=== PATIENT | female | born 1940 | race Caucasian/White ===

== ENCOUNTER 2018-10-19 20:24 | Emergency (ER) | payer MEDICARE, OTHER ==
[2018-10-19] MEDS ORDERED: Ondansetron 4 MG/2 ML SDV IVPUSH ONE (20:36)
--- NOTE | 2018-10-19 20:41 | EDM.PDOC ---
ED HPI GENERAL MEDICAL PROBLEM - General Chief Complaint: Gastrointestinal Problem Stated Complaint: NAUSEA/VOMITING Time Seen by Provider: 10/19/18 20:31 Source of Information: Reports: Patient History Limitations: Reports: No Limitations - History of Present Illness INITIAL COMMENTS - FREE TEXT/NARRATIVE: 78 y/o female presents to ER with cc nausea and vomiting. She reports her symptoms started today around noon. She started with nausea, chills, no fever and vomited later in the evening. She has a history of DM, cholecystectomy, she reports her sugars have been running 100-106 today. She is accompanied by her family member. She has not taken anything for her symptoms because she "can't keep anything down." Onset: Today Onset Date: 10/19/18 Onset Time: 12:00 Duration: Getting Worse Location: Reports: Abdomen Quality: Reports: Ache Severity: Mild Improves with: Reports: None Worsens with: Reports: None Associated Symptoms: Reports: Fever/Chills, Nausea/Vomiting. Denies: Chest Pain , Shortness of Breath, Weakness Middle Abdomen Pain Score (Numeric/FACES): 6 - Related Data Allergies Allergy/AdvReac Type Severity Reaction Status Date / Time latex Allergy Anaphylactic Verified 10/19/18 20:31 Shock fresh ink Allergy Anaphylactic Uncoded 10/19/18 20:31 Shock oil based products Allergy Anaphylactic Uncoded 10/19/18 20:31 Shock Home Meds: Home Meds Insulin Glarg,Human.Rec.Analog [Lantus Solostar] 50 units SQ BEDTIME 11/07/14 [ History] Lisinopril/Hydrochlorothiazide [Lisinopril-Hctz 20-25 mg Tab] 1 each PO DAILY [History] Propranolol [Inderal] 40 mg PO BID 11/07/14 [History] Sertraline HCl 50 mg PO DAILY 11/07/14 [History] atorvaSTATin [Lipitor] 20 mg PO BEDTIME 11/07/14 [History] rOPINIRole [Requip] 1.5 mg PO BEDTIME 11/07/14 [History] Linagliptin [Tradjenta] 1 tab PO DAILY 11/11/15 [History] Meloxicam 7.5 mg PO DAILY 10/19/18 [History] Ondansetron [Zofran ODT] 4 mg PO Q6H PRN #20 tab.dis 10/19/18 [Rx] Past Medical History HEENT History: Reports: Other (See Below) Other HEENT History: actinic otitis externa R ear, impacted cerumen, has upper denture Cardiovascular History: Reports: High Cholesterol, Hypertension Genitourinary History: Reports: Urinary Incontinence, Other (See Below) Other Genitourinary History: CKD III Neurological History: Reports: Neuropathy, Peripheral Psychiatric History: Reports: Depression Endocrine/Metabolic History: Reports: Diabetes, Type II Other Endocrine/Metabolic History: nephropathy Dermatologic History: Reports: Psoriasis, Other (See Below) Other Dermatologic History: dermatitis, tinea pedis - Past Surgical History HEENT Surgical History: Reports: Cataract Surgery GI Surgical History: Reports: Cholecystectomy Female Surgical History: Reports: Section Social & Family History - Tobacco Use Smoking Status *Q: Former Smoker Used Tobacco, but Quit: Yes Month/Year Tobacco Last Used: 8 years - Caffeine Use Caffeine Use: Reports: None - Recreational Drug Use Recreational Drug Use: No - Living Situation & Occupation Living situation: Reports: , with Spouse Occupation: Employed ED ROS GENERAL - Review of Systems Review Of Systems: See Below Constitutional: Reports: Chills. Denies: Fever HEENT: Reports: Glasses Respiratory: Denies: Shortness of Breath Cardiovascular: Denies: Chest Pain Endocrine: Reports: Other (history of type 2 diabetes) GI/Abdominal: Reports: Abdominal Pain, Nausea, Vomiting. Denies: Constipation, Diarrhea : Reports: No Symptoms Musculoskeletal: Reports: No Symptoms Skin: Reports: No Symptoms Neurological: Reports: No Symptoms Psychiatric: Reports: No Symptoms Hematologic/Lymphatic: Reports: No Symptoms Immunologic: Reports: No Symptoms ED EXAM, GI/ABD - Physical Exam Exam: See Below Exam Limited By: No Limitations General Appearance: Alert, WD/WN, No Apparent Distress Ears: Normal External Exam, Normal Canal, Hearing Grossly Normal, Normal TMs Nose: Normal Inspection, Normal Mucosa, No Blood Throat/Mouth: Normal Inspection, Normal Lips, Normal Teeth, Normal Gums, Normal Oropharynx, Normal Voice, No Airway Compromise Head: Atraumatic, Normocephalic Neck: Normal Inspection, Supple, Non-Tender, Full Range of Motion Respiratory/Chest: No Respiratory Distress, Lungs Clear, Normal Breath Sounds, No Accessory Muscle Use, Chest Non-Tender Cardiovascular: Normal Peripheral Pulses, Regular Rate, Rhythm, No Edema, No Gallop, No JVD, No Murmur, No Rub GI/Abdominal Exam: Normal Bowel Sounds, Soft, No Organomegaly, No Distention, No Abnormal Bruit, No Mass, Pelvis Stable, Tender. No: Guarding, Rigid, Rebound , Mass Back Exam: Normal Inspection, Full Range of Motion Extremities: Normal Inspection, Normal Range of Motion, Non-Tender, No Pedal Edema, Normal Capillary Refill Neurological: Alert, Oriented, Normal Cognition, Normal Gait Psychiatric: Normal Affect, Normal Mood Skin Exam: Warm, Dry, Intact, Normal Color, No Rash Lymphatic: No Adenopathy Course - Vital Signs Last Recorded V/S: Last Vital Signs Temp 98.1 F 10/19/18 20:29 Pulse 78 10/19/18 20:29 Resp 16 10/19/18 20:29 BP 174/131 H 10/19/18 21:03 Pulse Ox 90 L 10/19/18 20:29 - Orders/Labs/Meds Orders: Active Orders 24 hr Category Date Time Status Lisinopril [Prinivil] Med 10/19/18 21:00 Active 20 mg PO DAILY Sodium Chloride 0.9% [Normal Saline] 1,000 ml Med 10/19/18 20:45 Active IV ASDIRECTED Medication Orders Sodium Chloride (Normal Saline) 1,000 mls @ 999 mls/hr IV ASDIRECTED JACI Last Admin: 10/19/18 20:42 Dose: 999 mls/hr Lisinopril (Prinivil) 20 mg PO DAILY [facility] Last Admin: 10/19/18 21:03 Dose: 20 mg Labs: Laboratory Tests 10/19/18 10/19/18 10/19/18 Range/Units 20:40 20:40 21:14 WBC 7.41 (3.98-10.04) K/mm3 RBC 4.11 (3.98-5.22) M/mm3 Hgb 12.4 (11.2-15.7) gm/L Hct 38.7 (34.1-44.9) % MCV 94.2 (79.4-94.8) fl MCH 30.2 (25.6-32.2) pg MCHC 32.0 L (32.2-35.5) g/dl RDW Std Deviation 45.1 (36.4-46.3) fL Plt Count 260 (182-369) K/mm3 MPV 9.4 (9.4-12.3) fl Neut % (Auto) 85.3 H (34.0-71.1) % Lymph % (Auto) 8.4 L (19.3-51.7) % Posey % (Auto) 4.6 L (4.7-12.5) % Eos % (Auto) 1.5 (0.7-5.8) Baso % (Auto) 0.1 (0.1-1.2) % Neut # (Auto) 6.32 H (1.56-6.13) K/mm3 Lymph # (Auto) 0.62 L (1.18-3.74) K/mm3 Posey # (Auto) 0.34 (0.24-0.36) K/mm3 Eos # (Auto) 0.11 (0.04-0.36) K/mm3 Baso # (Auto) 0.01 (0.01-0.08) K/mm3 Manual Slide Review Abnormal smear Sodium 142 (136-145) mEq/L Potassium 4.2 (3.5-5.1) mEq/L Chloride 106 (98-107) mEq/L Carbon Dioxide 30 (21-32) mEq/L Anion Gap 10.2 (5-15) BUN 26 H (7-18) mg/dL Creatinine 1.4 H (0.55-1.02) mg/dL Est Cr Clr Drug Dosing 27.04 mL/min Estimated GFR (MDRD) 37 (>60) mL/min BUN/Creatinine Ratio 18.6 H (14-18) Glucose 182 H (83-115) mg/dL Calcium 9.4 (8.5-10.1) mg/dL Total Bilirubin 0.5 (0.2-1.0) mg/dL AST 18 (15-37) U/L ALT 28 (14-59) U/L Alkaline Phosphatase 106 (46-116) U/L Total Protein 7.9 (6.4-8.2) g/dl Albumin 3.8 (3.4-5.0) g/dl Globulin 4.1 gm/dL Albumin/Globulin Ratio 0.9 L (1-2) Urine Color Yellow (Yellow) Urine Appearance Clear (Clear) Urine pH 6.0 (5.0-8.0) Ur Specific Oneco > or = 1.030 (1.005-1.030) Urine Protein 2+ H (Negative) Urine Glucose (UA) Negative (Negative) Urine Ketones Negative (Negative) Urine Occult Blood Negative (Negative) Urine Nitrite Negative (Negative) Urine Bilirubin Negative (Negative) Urine Urobilinogen 0.2 (0.2-1.0) Ur Leukocyte Esterase Negative (Negative) Urine RBC 0-5 (0-5) /hpf Urine WBC 0-5 (0-5) /hpf Ur Squamous Epith Cells 5-10 H (0-5) /hpf Urine Bacteria Few H (FEW) /hpf Urine Mucus Moderate H (FEW) /hpf Meds: Medications Generic Name Dose Route Start Last Admin Trade Name Freq PRN Reason Stop Dose Admin Sodium Chloride 1,000 mls @ 999 mls/hr 10/19/18 20:45 10/19/18 20:42 Normal Saline IV 999 mls/hr ASDIRECTED JACI Administration Lisinopril 20 mg 10/19/18 21:00 10/19/18 21:03 Prinivil PO 20 mg DAILY JACI Administration Discontinued Medications Generic Name Dose Route Start Last Admin Trade Name Freq PRN Reason Stop Dose Admin Hydrochlorothiazide 25 mg 10/19/18 20:51 10/19/18 21:03 Hydrochlorothiazide PO 10/19/18 20:52 25 mg ONETIME ONE Administration Ondansetron HCl 4 mg 10/19/18 20:36 10/19/18 20:43 Zofran IVPUSH 10/19/18 20:37 4 mg ONETIME ONE Administration Promethazine HCl 25 mg 10/19/18 20:58 10/19/18 21:03 Phenergan IM 10/19/18 20:59 25 mg ONETIME ONE Administration - Re-Assessments/Exams Free Text/Narrative Re-Assessment/Exam: 10/19/18 21:12 WBC 7.41 rbc 4.11 H & H 12.4/38.7. 10/19/18 21:54 Na + 142 K + 4.2 chl 106 co2 30 glucose 182 bun 26 creatine 1.4 urinalysis normal except protein + 2. She states she feels better after receiving IVF, Phenergan, lisinopril, HCTZ and Zofran. I feel her illness is due to a virus. Her B/P came down to 156/65 and her oxygen level was 93% at time of discharge. I will discharge home with instructions to follow a bland diet and advance as tolerated. I will discharge home with Zofran for nausea. I instructed her to follow up with her PCP. Instructed to return to the ER for any new or acute worsening symptoms. She verbalized understanding and her condition improved. Departure - Departure Time of Disposition: 21:58 Disposition: Home, Self-Care 01 Condition: Good Clinical Impression: Gastroenteritis, Vomiting - Discharge Information Prescriptions: Ondansetron [Zofran ODT] 4 mg PO Q6H PRN #20 tab.dis PRN Reason: Nausea Instructions: Nausea and Vomiting, Adult, Viral Gastroenteritis, Adult, Easy-to -Read Referrals: Carolina Rodriguez, SENSITIZER [Primary Care Provider] - Forms: ED Department Discharge Additional Instructions: You have been diagnosis with gastroenteritis. I recommend you eat a bland diet and advance as tolerated. You have been giving a prescription for Zofran for nausea. Follow up with your PCP. Return to the ER for any new or acute worsening symptoms. - My Orders Last 24 Hours: My Active Orders 10/19/18 20:45 Sodium Chloride 0.9% [Normal Saline] 1,000 ml IV ASDIRECTED 10/19/18 21:00 Lisinopril [Prinivil] 20 mg PO DAILY - Assessment/Plan Last 24 Hours: My Active Orders 10/19/18 20:45 Sodium Chloride 0.9% [Normal Saline] 1,000 ml IV ASDIRECTED 10/19/18 21:00 Lisinopril [Prinivil] 20 mg PO DAILY
[2018-10-19] MEDS ORDERED: Sodium Chloride 0.9% 1,000 ML IV SCH (20:45)
[2018-10-19] MEDS ORDERED: Hydrochlorothiazide 25 MG Tab PO ONE (20:51)
[2018-10-19] MEDS ORDERED: Promethazine 25 MG/ML SDV IM ONE (20:58)
[2018-10-19] MEDS ORDERED: Lisinopril 20 MG Tab PO SCH (21:00)
[2018-10-19 21:03] VITALS: BP 174/131
== END 2018-10-19 22:10 | disposition home or self-care (01) ==
LOC: JD.ED 20:24
DX: K52.9 Noninfective gastroenteritis and colitis, unspecified (principal); I12.9 Hypertensive chronic kidney disease with stage 1 through stage 4 chronic kidney disease, or unspecified chronic kidney disease; N18.3 Chronic kidney disease, stage 3 (moderate); E11.22 Type 2 diabetes mellitus with diabetic chronic kidney disease; Z98.49 Cataract extraction status, unspecified eye; Z90.49 Acquired absence of other specified parts of digestive tract; E11.40 Type 2 diabetes mellitus with diabetic neuropathy, unspecified; E11.21 Type 2 diabetes mellitus with diabetic nephropathy; Z88.8 Allergy status to other drugs, medicaments and biological substances; Z91.040 Latex allergy status; Z87.891 Personal history of nicotine dependence
CPT/HCPCS: 36415; 80053; 81001; 85025; 96361; 96372; 96374; 99284; A9270; J2405; J2550; J7040

== ENCOUNTER 2018-12-09 16:38 | Inpatient (IN) | payer MEDICARE, OTHER ==
--- NOTE | 2018-12-09 17:03 | EDM.PDOC ---
ED HPI GENERAL MEDICAL PROBLEM - General Chief Complaint: Abdominal Pain Stated Complaint: VOMITING AND BLOOD IN STOOL Time Seen by Provider: 12/09/18 16:55 Source of Information: Reports: Patient History Limitations: Reports: No Limitations - History of Present Illness INITIAL COMMENTS - FREE TEXT/NARRATIVE: 78-year-old female presents to the ED with acute onset of illness starting at noon today. She states this morning she felt well. She ate dinner about 11:30 and within the hour started to have nausea and then began vomiting. She lost her dinner. She estimated she's vomited 4 or 5 times the last 2 emesis is have just been bilious without blood. Within the hour she started having lower abdominal cramping pain and diarrhea stools. She estimates that she's gone 6 or 7 times. The last 2 were bloody and mucus. She usually has no problems with hemorrhoids or bleeding per rectum. She did diffuse lower abdominal cramping pain intermittently. She is an insulin-dependent diabetic type II. Not sure what her blood sugar is at this time. She just finished her course of Bactrim double strength which she has used for 3 days for urinary tract infection. She was having dysuria urgency and frequency and this improved within a day of taking antibiotics and has continued to be better. No associated fever but some chills. She also took fluconazole her Diflucan 1 tablet because they told her she had a yeast infection. 3 days ago. Onset: Today, Sudden Onset Date: 12/09/18 Onset Time: 12:00 Duration: Hour(s): Location: Reports: Abdomen (Started with nausea and vomiting and then developed diarrhea shortly thereafter.) Quality: Reports: Ache, Sharp, Stabbing, Other (Constant pain in the epigastrium with intermittent lower abdominal cramping pain) Severity: Moderate Improves with: Reports: None Worsens with: Reports: None Context: Denies: Activity, Exercise, Lifting, Sick Contact, Trauma, Other Associated Symptoms: Reports: Diaphoresis, Malaise, Nausea/Vomiting (4 times since noon), Weakness, Other (Diarrhea 6 or 7 times with the last 2 being bloody and mucousy.). 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.) Lower Abdominal Pain Score (Numeric/FACES): 7 - Related Data Allergies Allergy/AdvReac Type Severity Reaction Status Date / Time latex Allergy Anaphylactic Verified 12/09/18 16:46 Shock fresh ink Allergy Anaphylactic Uncoded 10/19/18 20:31 Shock oil based products Allergy Anaphylactic Uncoded 10/19/18 20:31 Shock Home Meds: Home Meds Lisinopril/Hydrochlorothiazide [Lisinopril-Hctz 20-25 mg Tab] 1 each PO DAILY [History] Propranolol [Inderal] 40 mg PO BID 11/07/14 [History] Sertraline HCl 50 mg PO DAILY 11/07/14 [History] atorvaSTATin [Lipitor] 20 mg PO BEDTIME 11/07/14 [History] rOPINIRole [Requip] 1.5 mg PO BEDTIME 11/07/14 [History] Linagliptin [Tradjenta] 1 tab PO DAILY 11/11/15 [History] Ondansetron [Zofran ODT] 4 mg PO Q6H PRN #20 tab.dis 10/19/18 [Rx] Fluconazole 150 mg PO DAILY 12/09/18 [History] Insulin Glarg,Human.Rec.Analog [Lantus] 50 unit SUBCUT DAILY 12/09/18 [History] Sulfamethoxazole/Trimethoprim [Bactrim Ds Tablet] 1 each PO BID 12/09/18 [ History] Past Medical History HEENT History: Reports: Other (See Below) Other HEENT History: actinic otitis externa R ear, impacted cerumen, has upper denture Cardiovascular History: Reports: High Cholesterol, Hypertension Genitourinary History: Reports: Urinary Incontinence, Other (See Below) Other Genitourinary History: CKD III Neurological History: Reports: Neuropathy, Peripheral Psychiatric History: Reports: Depression Endocrine/Metabolic History: Reports: Diabetes, Type II Other Endocrine/Metabolic History: nephropathy Dermatologic History: Reports: Psoriasis, Other (See Below) Other Dermatologic History: dermatitis, tinea pedis - Past Surgical History HEENT Surgical History: Reports: Cataract Surgery GI Surgical History: Reports: Cholecystectomy (Done open.) Female Surgical History: Reports: Section (Classical scar 1.) Social & Family History - Tobacco Use Smoking Status *Q: Never Smoker - Caffeine Use Caffeine Use: Reports: None - Recreational Drug Use Recreational Drug Use: No - Living Situation & Occupation Living situation: Reports: , with Spouse Occupation: Employed ED ROS GENERAL - Review of Systems Review Of Systems: See Below Constitutional: Reports: Chills, Malaise, Weakness, Fatigue, Decreased Appetite. Denies: Fever, Weight Loss HEENT: Reports: Glasses, Other (Has had previous cataract extractions) Respiratory: Reports: No Symptoms. Denies: Shortness of Breath, Wheezing, Pleuritic Chest Pain, Cough, Sputum Cardiovascular: Reports: Blood Pressure Problem, Dyspnea on Exertion (Left lower leg at times), Edema. Denies: Chest Pain, Claudication, Lightheadedness, Orthopnea, Palpitations ( on exertion sometimes) Endocrine: Reports: Fatigue GI/Abdominal: Reports: Abdominal Pain, Diarrhea (Nausea and vomiting since noon today 4. 6 or 7 times with the last 2 times containing blood and mucus.), Nausea, Vomiting : Reports: Frequency, Other (Urinary tract infection symptoms dissipated after first day of Bactrim double strength use. Has now completed antibiotic therapy). Denies: Dysuria, Urgency Musculoskeletal: Reports: Joint Pain (Knees hips neck and low back at times) Skin: Reports: No Symptoms Neurological: Reports: No Symptoms Psychiatric: Reports: No Symptoms Hematologic/Lymphatic: Reports: No Symptoms Immunologic: Reports: No Symptoms ED EXAM, GI/ABD - Physical Exam Exam: See Below Exam Limited By: No Limitations General Appearance: Alert, WD/WN, No Apparent Distress, Other (Vital signs show she is afebrile with temperature 36.3. Pulse of 61 and sinus respiratory of 18. Sats are 97% on room air. BP is 1 5053.) Eyes: Bilateral: Normal Appearance (No scleral icterus.) Throat/Mouth: Normal Inspection, Normal Lips, Normal Teeth, Normal Oropharynx Head: Atraumatic, Normocephalic Neck: Normal Inspection, Supple, Non-Tender, Full Range of Motion, Other. No: Carotid Bruit, Lymphadenopathy (L), Lymphadenopathy (R) Respiratory/Chest: No Respiratory Distress (No JVD), Lungs Clear, Normal Breath Sounds, No Accessory Muscle Use, Chest Non-Tender Cardiovascular: Regular Rate, Rhythm (Mildly decreased to her ankles.), No Murmur, No Rub. No: Normal Peripheral Pulses, No Edema, No Gallop, JVD GI/Abdominal Exam: Soft, No Organomegaly, Distended (And diffusely tympanitic to percussion), Tender (Tenderness in the epigastrium without rebound or guarding.), Abnormal Bowel Sounds (Bowel sounds are slightly overactive in all 4 quadrants. The abdomen is distended and diffusely tympanitic to percussion.). No: Guarding, Rigid, Rebound Back Exam: Normal Inspection, Full Range of Motion. No: CVA Tenderness (L), CVA Tenderness (R) Extremities: Normal Inspection, Pedal Edema (2+ pitting edema left lower extremity.), Other Neurological: Alert (She has evidence of osteophytic changes both knees.), Oriented, CN II-XII Intact, Normal Cognition Psychiatric: Flat Affect Skin Exam: Warm, Dry, Intact, Normal Color, No Rash Course - Vital Signs Last Recorded V/S: Last Vital Signs Temp 36.6 C 12/09/18 18:33 Pulse 51 L 12/09/18 18:33 Resp 17 12/09/18 18:33 BP 120/45 L 12/09/18 18:33 Pulse Ox 94 L 12/09/18 18:33 - Orders/Labs/Meds Orders: Active Orders 24 hr Category Date Time Status Admission Status [Patient Status] [ADT] Routine ADT 12/09/18 19:08 Active Blood Glucose Check, Bedside [RC] ONETIME Care 12/09/18 17:10 Active C DIFFICILE BY PCR W/NAP1 [MOLEC] Stat Lab 12/09/18 17:10 Ordered CULTURE STOOL + SHIGATOX [RM] Stat Lab 12/09/18 17:10 Ordered CULTURE URINE [RM] Stat Lab 12/09/18 17:10 Received WBC, STOOL [OP] Stat Lab 12/09/18 17:10 Ordered Sodium Chloride 0.9% [Normal Saline] 1,000 ml Med 12/09/18 17:15 Active IV ASDIRECTED Isolation [COMM] Stat Oth 12/09/18 17:10 Ordered Medication Orders Sodium Chloride (Normal Saline) 1,000 mls @ 500 mls/hr IV ASDIRECTED JACI Last Admin: 12/09/18 17:13 Dose: 500 mls/hr Labs: Laboratory Tests 06/16/19 06/16/19 06/16/19 Range/Units 16:57 16:57 16:57 WBC 10.74 H (3.98-10.04) K/mm3 RBC 4.12 (3.98-5.22) M/mm3 Hgb 12.3 (11.2-15.7) gm/L Hct 37.9 (34.1-44.9) % MCV 92.0 (79.4-94.8) fl MCH 29.9 (25.6-32.2) pg MCHC 32.5 (32.2-35.5) g/dl RDW Std Deviation 44.0 (36.4-46.3) fL Plt Count 295 (182-369) K/mm3 MPV 10.1 (9.4-12.3) fl Neutrophils % (Manual) 85 H (40-60) % Band Neutrophils % 0 (0-10) % Lymphocytes % (Manual) 12 L (20-40) % Atypical Lymphs % 0 % Monocytes % (Manual) 3 (2-10) % Eosinophils % (Manual) 0 L (0.7-5.8) % Basophils % (Manual) 0 L (0.1-1.2) Toxic Granulation 1+ slight Platelet Estimate Adequate Plt Morphology Comment Normal RBC Morph Comment Normal PT 10.0 (9.5-12.1) SECONDS INR < 0.93 APTT 23 L (24-31) SECONDS Sodium 136 (136-145) mEq/L Potassium 4.5 (3.5-5.1) mEq/L Chloride 102 (98-107) mEq/L Carbon Dioxide 23 (21-32) mEq/L Anion Gap 15.5 H (5-15) BUN 40 H (7-18) mg/dL Creatinine 2.6 H D (0.55-1.02) mg/dL Est Cr Clr Drug Dosing 14.56 mL/min Estimated GFR (MDRD) 18 (>60) mL/min BUN/Creatinine Ratio 15.4 (14-18) Glucose 172 H (83-115) mg/dL POC Glucose (83-110) mg/dL Calcium 9.1 (8.5-10.1) mg/dL Total Bilirubin 0.4 (0.2-1.0) mg/dL AST 23 (15-37) U/L ALT 31 (14-59) U/L Alkaline Phosphatase 124 H (46-116) U/L C-Reactive Protein 0.3 (<1.0) mg/dL NT-Pro-B Natriuret Pep (0-450) pg/mL Total Protein 7.3 (6.4-8.2) g/dl Albumin 3.6 (3.4-5.0) g/dl Globulin 3.7 gm/dL Albumin/Globulin Ratio 1.0 (1-2) Urine Color (Yellow) Urine Appearance (Clear) Urine pH (5.0-8.0) Ur Specific [place] (1.005-1.030) Urine Protein (Negative) Urine Glucose (UA) (Negative) Urine Ketones (Negative) Urine Occult Blood (Negative) Urine Nitrite (Negative) Urine Bilirubin (Negative) Urine Urobilinogen (0.2-1.0) Ur Leukocyte Esterase (Negative) Urine RBC (0-5) /hpf Urine WBC (0-5) /hpf Ur Epithelial Cells (0-5) /hpf Urine Bacteria (FEW) /hpf Hyaline Casts (0-5) /lpf Urine Mucus (FEW) /hpf 12/09/18 12/09/18 12/09/18 Range/Units 16:57 17:10 17:22 WBC (3.98-10.04) K/mm3 RBC (3.98-5.22) M/mm3 Hgb (11.2-15.7) gm/L Hct (34.1-44.9) % MCV (79.4-94.8) fl MCH (25.6-32.2) pg MCHC (32.2-35.5) g/dl RDW Std Deviation (36.4-46.3) fL Plt Count (182-369) K/mm3 MPV (9.4-12.3) fl Neutrophils % (Manual) (40-60) % Band Neutrophils % (0-10) % Lymphocytes % (Manual) (20-40) % Atypical Lymphs % % Monocytes % (Manual) (2-10) % Eosinophils % (Manual) (0.7-5.8) % Basophils % (Manual) (0.1-1.2) Toxic Granulation Platelet Estimate Plt Morphology Comment RBC Morph Comment PT (9.5-12.1) SECONDS INR APTT (24-31) SECONDS Sodium (136-145) mEq/L Potassium (3.5-5.1) mEq/L Chloride (98-107) mEq/L Carbon Dioxide (21-32) mEq/L Anion Gap (5-15) BUN (7-18) mg/dL Creatinine (0.55-1.02) mg/dL Est Cr Clr Drug Dosing mL/min Estimated GFR (MDRD) (>60) mL/min BUN/Creatinine Ratio (14-18) Glucose (83-115) mg/dL POC Glucose 164 H (83-110) mg/dL Calcium (8.5-10.1) mg/dL Total Bilirubin (0.2-1.0) mg/dL AST (15-37) U/L ALT (14-59) U/L Alkaline Phosphatase (46-116) U/L C-Reactive Protein (<1.0) mg/dL NT-Pro-B Natriuret Pep 602 H (0-450) pg/mL Total Protein (6.4-8.2) g/dl Albumin (3.4-5.0) g/dl Globulin gm/dL Albumin/Globulin Ratio (1-2) Urine Color Yellow (Yellow) Urine Appearance Clear (Clear) Urine pH 5.5 (5.0-8.0) Ur Specific [place] > or = 1.030 (1.005-1.030) Urine Protein 1+ H (Negative) Urine Glucose (UA) Negative (Negative) Urine Ketones Negative (Negative) Urine Occult Blood Negative (Negative) Urine Nitrite Negative (Negative) Urine Bilirubin 1+ H (Negative) Urine Urobilinogen 0.2 (0.2-1.0) Ur Leukocyte Esterase Negative (Negative) Urine RBC 0-5 (0-5) /hpf Urine WBC 0-5 (0-5) /hpf Ur Epithelial Cells 10-20 H (0-5) /hpf Urine Bacteria Moderate H (FEW) /hpf Hyaline Casts 20-30 H (0-5) /lpf Urine Mucus Moderate H (FEW) /hpf Meds: Medications Generic Name Dose Route Start Last Admin Trade Name Freq PRN Reason Stop Dose Admin Sodium Chloride 1,000 mls @ 500 mls/hr 12/09/18 17:15 12/09/18 17:13 Normal Saline IV 500 mls/hr ASDIRECTED JACI Administration Discontinued Medications Generic Name Dose Route Start Last Admin Trade Name Freq PRN Reason Stop Dose Admin Hydromorphone HCl 0.5 mg 12/09/18 17:09 12/09/18 17:14 Dilaudid IVPUSH 12/09/18 17:10 0.5 mg ONETIME ONE Administration Ceftriaxone Sodium 2 gm/ 100 mls @ 200 mls/hr 12/09/18 18:43 12/09/18 18:48 Sodium Chloride IV 12/09/18 19:12 200 mls/hr ONETIME ONE Administration Metoclopramide HCl 7.5 mg 12/09/18 17:07 12/09/18 17:14 Reglan IVPUSH 12/09/18 17:08 7.5 mg ONETIME ONE Administration - Radiology Interpretation Free Text/Narrative:: 78-year-old female presents to the ED with acute onset of gastroenteritis symptoms with initial onset of nausea then vomiting about noon. She has vomited 4 times since that time initially losing her dinner and then bilious emesis since. Within the hour she also developed a lower bowel cramping pain and diarrhea. The last 2 diarrhea stools have been bloody and mucousy. She has got about 6 or 7 times with associated lower abdominal cramping pain. She doesn't believe that she could've been exposed to bad food as she's been eating out at home the last several days. She displaced a course of Bactrim double strength 1 twice a day for 3 days for urinary tract infection and UTI symptoms are gone. She had was not on any antibiotics before the Bactrim. Plan IV normal saline at 500 mils per hour. Given Reglan 7.5 mg IV and Dilaudid 0.5 mg IV for abdominal cramping pain. Routine labs to be collected and stool if one becomes available for white cells and culture and C. diffcile. She is afebrile therefore blood cultures will not be done at this time. - Re-Assessments/Exams Free Text/Narrative Re-Assessment/Exam: 12/09/18 18:31 Labs reveal a slightly elevated white count at 10.74. 85% neutrophils with no band cells. Hemoglobin is 12.3 with hematocrit of 37.9. Platelet count 295,000. The slide shows 1+ toxic granulation pattern. PT is 10.0 with an INR of less than 0.93. PTT is 23. Sodium 136 with a potassium of 4.5. Toward 102 with a bicarbonate of 23. And a gap is 15.5. BUN is 40. Creatinine is 2.6. GFR is 18 which is stage IV kidney disease. Of note she is an insulin-dependent diabetic type II. 172. Bedside blood glucose was 164. Calcium was 9.1. Liver function normal other than alk phosphatase slightly elevated at 124. C-reactive protein is 0.3. ENT is elevated at 602. Total protein is 7.3. Albumin fraction 3.6. Urinalysis shows 1+ proteinuria and 1+ bilirubin in the urine. The slide shows 10-20 epithelial cells per hpf. Moderate bacteria .20-30 hyaline casts and moderate urinary mucus. Hyaline casts are concerning for the development of a glomerulonephritis. This is concerning for possible development of acute renal injury secondary to infection. Urine culture will be ordered. 12/09/18 18:40 has spoken to the patient in length and is far she knows she was not having any problems with her kidneys. She reports that she had a complete physical exam including lab work with Carolina Rodriguez the end of September this year. I will try and obtain those notes. In the meantime I'm going to start her on Rocephin 2 g IV for suspect pyelonephritis. She remains afebrile and therefore blood cultures were not ordered. She will have to be admitted to the hospital and I will speak to Dr. Chacko in this regard. I am going to give her some Gatorade and crackers and see we can induce a another bowel movement so that we can sample the stool that is bloody. She did eat at [employer] fast food restaurant last night but felt that her hamburger was well cooked. I did research labs that were done on her by her primary care provider in the latter part of September. At that time her BUN was 23 with a creatinine of 1.2. Eat EGFR was 44. She did have micro-proteinuria will at 115.7. She is volume depleted at this time and renal function may improve dramatically with volume repletion. However she is also mild congestive heart failure and therefore fluid replacement will have to be done slowly. 12/09/18 19:[address] Chacko and he will arrange admission to the [facility] surgery floor on telemetry. Departure - Departure Time of Disposition: 19:21 Disposition: Admitted As Inpatient 68 Condition: Fair Clinical Impression: Dysentery, Chronic renal insufficiency, stage IV (severe) Nausea & vomiting Qualifiers: Vomiting type: bilious vomiting Qualified Code(s): R11.14 - Bilious vomiting CHF (congestive heart failure), NYHA class II Qualifiers: Congestive heart failure type: unspecified Qualified Code(s): I50.9 - Heart failure, unspecified - Discharge Information *PRESCRIPTION DRUG MONITORING PROGRAM REVIEWED*: Not Applicable *COPY OF PRESCRIPTION DRUG MONITORING REPORT IN PATIENT RAMONA: Not Applicable Instructions: Nausea and Vomiting, Adult Referrals: Carolina Rodriguez [employer] [Primary Care Provider] - Forms: ED Department Discharge - My Orders Last 24 Hours: My Active Orders 12/09/18 17:10 Blood Glucose Check, Bedside [RC] ONETIME C DIFFICILE BY PCR W/NAP1 [MOLEC] Stat CULTURE STOOL + SHIGATOX [RM] Stat CULTURE URINE [RM] Stat WBC, STOOL [OP] Stat Isolation [COMM] Stat 12/09/18 17:15 Sodium Chloride 0.9% [Normal Saline] 1,000 ml IV ASDIRECTED 12/09/18 19:08 Admission Status [Patient Status] [ADT] Routine - Assessment/Plan Last 24 Hours: My Active Orders 12/09/18 17:10 Blood Glucose Check, Bedside [RC] ONETIME C DIFFICILE BY PCR W/NAP1 [MOLEC] Stat CULTURE STOOL + SHIGATOX [RM] Stat CULTURE URINE [RM] Stat WBC, STOOL [OP] Stat Isolation [COMM] Stat 12/09/18 17:15 Sodium Chloride 0.9% [Normal Saline] 1,000 ml IV ASDIRECTED 12/09/18 19:08 Admission Status [Patient Status] [ADT] Routine
[2018-12-09] MEDS ORDERED: Metoclopramide 10 MG/2 ML SDV IVPUSH ONE (17:07)
[2018-12-09] MEDS ORDERED: HYDROmorphone 0.5 MG/0.5 ML Syringe IVPUSH ONE (17:09)
[2018-12-09] MEDS ORDERED: Sodium Chloride 0.9% 1,000 ML IV SCH (17:15)
[2018-12-09] MEDS ORDERED: cefTRIAXone 2 GM Vial IV ONE (18:40)
[2018-12-09] MEDS ORDERED: cefTRIAXone 2 GM in Sodium Chloride 0.9% 100 ML IV ONE (18:43)
[2018-12-09] MEDS ORDERED: diphenhydrAMINE 50 MG/ML SDV IVPUSH ONE (19:32)
[2018-12-09] MEDS: Sodium Chloride 0.9% 1,000 ML IV SCH (19:50)
[2018-12-09] MEDS ORDERED: Ondansetron 4 MG/2 ML SDV IV PRN (21:53)
--- NOTE | 2018-12-09 22:04 | PCM.HP ---
H&P History of Present Illness - General Date of Service: 12/09/18 Admit Problem/Dx: Admission Diagnosis/Problem Admission Diagnosis/Problem Dysentery - History of Present Illness Initial Comments - Free Text/Narative: 78-year-old female admitted through the emergency room with acute renal failure. Patient presented to the emergency room after feeling hot, flushed, and nauseated. She started vomiting and then had diarrhea off and on for 3 hours starting at noon. When she developed bloody mucous in her stools she went to the emergency room at 1630. Patient states that she vomited approximately 45 times in the last couple being bilious without blood. She complains of lower abdominal cramping and diarrhea. She had multiple bowel movements up to 7 times. Patient was started on Bactrim on secondary to UTI symptoms. Patient took her last dose this morning prior to the above symptoms. She also has type 2 diabetes and his insulin independent. On she was having dysuria, but that has resolved. Patient also took fluconazole 1 tablet because of the yeast infection 3 days ago. In the emergency room she was given normal saline IV 500 mL bolus and started on 100 mL per hour. Patient was given Reglan for nausea and Dilaudid for pain. She was given 2 g Rocephin IV. Stool studies were ordered and patient was transferred to the medical surgical floor. Pertinent laboratory findings in the emergency room were: White count 10,740, bands 0%, normal coagulation panel, sodium 136, potassium 4.5, urine 40, creatinine 2.6, proBNP 602, UA with 10-20 epithelial cells. Lower Abdominal Pain Score (Numeric/FACES): 7 - Related Data Allergies/Adverse Reactions: Allergies Allergy/AdvReac Type Severity Reaction Status Date / Time latex Allergy Anaphylactic Verified 12/10/18 03:23 Shock fresh ink Allergy Anaphylactic Uncoded 12/10/18 03:23 Shock oil based products Allergy Anaphylactic Uncoded 12/10/18 03:23 Shock Home Medications: Home Meds Lisinopril/Hydrochlorothiazide [Lisinopril-Hctz 20-25 mg Tab] 1 each PO DAILY [History] Propranolol [Inderal] 40 mg PO BID 11/07/14 [History] Sertraline HCl 50 mg PO DAILY 11/07/14 [History] atorvaSTATin [Lipitor] 20 mg PO BEDTIME 11/07/14 [History] rOPINIRole [Requip] 1.5 mg PO BEDTIME 11/07/14 [History] Linagliptin [Tradjenta] 1 tab PO DAILY 11/11/15 [History] Insulin Glarg,Human.Rec.Analog [Lantus] 50 unit SUBCUT DAILY 12/09/18 [History] Past Medical History HEENT History: Reports: Other (See Below) Other HEENT History: actinic otitis externa R ear, impacted cerumen, has upper denture Cardiovascular History: Reports: High Cholesterol, Hypertension Gastrointestinal History: Reports: Hemorrhoids Genitourinary History: Reports: Urinary Incontinence, UTI, Recurrent, Other ( See Below) Other Genitourinary History: CKD III COATER SLATE History: Reports: Musculoskeletal History: Reports: Osteoarthritis Neurological History: Reports: Neuropathy, Peripheral Psychiatric History: Reports: Depression Endocrine/Metabolic History: Reports: Diabetes, Type II, Obesity/BMI 30+ Other Endocrine/Metabolic History: nephropathy Dermatologic History: Reports: Psoriasis, Other (See Below) Other Dermatologic History: dermatitis, tinea pedis - Past Surgical History HEENT Surgical History: Reports: Cataract Surgery Cardiovascular Surgical History: Reports: None GI Surgical History: Reports: Cholecystectomy Female Surgical History: Reports: Section, Tubal Ligation Endocrine Surgical History: Reports: None Musculoskeletal Surgical History: Reports: None Dermatological Surgical History: Reports: None Social & Family History - Family History Family Medical History: Noncontributory - Tobacco Use Smoking Status *Q: Former Smoker Used Tobacco, but Quit: No Second Hand Smoke Exposure: No - Caffeine Use Caffeine Use: Reports: Coffee Other Caffeine Use: 2 cups a day - Recreational Drug Use Recreational Drug Use: No - Living Situation & Occupation Living situation: Reports: , with Spouse Occupation: Employed H&P Review of Systems - Review of Systems: Review Of Systems: ROS reveals no pertinent complaints other than HPI. Exam - Exam Exam: See Below - Vital Signs Vital Signs: Last Vital Signs Temp 97.8 F 12/09/18 18:33 Pulse 51 L 12/09/18 18:33 Resp 17 12/09/18 18:33 BP 120/45 L 12/09/18 18:33 Pulse Ox 94 L 12/09/18 18:33 Weight: 189 lb 8 oz - Exam General: Alert, Oriented HEENT: Conjunctiva Clear, Mucosa Moist & Hypoluxo, Posterior Pharynx Clear Neck: Supple, Trachea Midline Lungs: Clear to Auscultation, Normal Respiratory Effort Cardiovascular: Regular Rate, Regular Rhythm, Normal S1, Normal S2 GI/Abdominal Exam: Normal Bowel Sounds, Soft, No Organomegaly, No Mass, Distended (Tympanic) Extremities: Normal Inspection, Normal Range of Motion, Non-Tender, No Pedal Edema Skin: Warm, Dry, Intact Neuro Extensive - Mental Status: Alert, Oriented x3, Normal Mood/Affect, Normal Cognition Neuro Extensive - Motor, Sensory, Reflexes: CN II-XII Intact - Patient Data Lab Results Last 24 hrs: Laboratory Results - last 24 hr 12/09/18 12/09/18 12/09/18 Range/Units 16:57 16:57 16:57 WBC 10.74 H (3.98-10.04) K/mm3 RBC 4.12 (3.98-5.22) M/mm3 Hgb 12.3 (11.2-15.7) gm/L Hct 37.9 (34.1-44.9) % MCV 92.0 (79.4-94.8) fl MCH 29.9 (25.6-32.2) pg MCHC 32.5 (32.2-35.5) g/dl RDW Std Deviation 44.0 (36.4-46.3) fL Plt Count 295 (182-369) K/mm3 MPV 10.1 (9.4-12.3) fl Neutrophils % (Manual) 85 H (40-60) % Band Neutrophils % 0 (0-10) % Lymphocytes % (Manual) 12 L (20-40) % Atypical Lymphs % 0 % Monocytes % (Manual) 3 (2-10) % Eosinophils % (Manual) 0 L (0.7-5.8) % Basophils % (Manual) 0 L (0.1-1.2) Toxic Granulation 1+ slight Platelet Estimate Adequate Plt Morphology Comment Normal RBC Morph Comment Normal PT 10.0 (9.5-12.1) SECONDS INR < 0.93 APTT 23 L (24-31) SECONDS Sodium 136 (136-145) mEq/L Potassium 4.5 (3.5-5.1) mEq/L Chloride 102 (98-107) mEq/L Carbon Dioxide 23 (21-32) mEq/L Anion Gap 15.5 H (5-15) BUN 40 H (7-18) mg/dL Creatinine 2.6 H D (0.55-1.02) mg/dL Est Cr Clr Drug Dosing 14.56 mL/min Estimated GFR (MDRD) 18 (>60) mL/min BUN/Creatinine Ratio 15.4 (14-18) Glucose 172 H (83-115) mg/dL POC Glucose (83-110) mg/dL Calcium 9.1 (8.5-10.1) mg/dL Total Bilirubin 0.4 (0.2-1.0) mg/dL AST 23 (15-37) U/L ALT 31 (14-59) U/L Alkaline Phosphatase 124 H (46-116) U/L C-Reactive Protein 0.3 (<1.0) mg/dL NT-Pro-B Natriuret Pep (0-450) pg/mL Total Protein 7.3 (6.4-8.2) g/dl Albumin 3.6 (3.4-5.0) g/dl Globulin 3.7 gm/dL Albumin/Globulin Ratio 1.0 (1-2) Urine Color (Yellow) Urine Appearance (Clear) Urine pH (5.0-8.0) Ur Specific [place] (1.005-1.030) Urine Protein (Negative) Urine Glucose (UA) (Negative) Urine Ketones (Negative) Urine Occult Blood (Negative) Urine Nitrite (Negative) Urine Bilirubin (Negative) Urine Urobilinogen (0.2-1.0) Ur Leukocyte Esterase (Negative) Urine RBC (0-5) /hpf Urine WBC (0-5) /hpf Ur Epithelial Cells (0-5) /hpf Urine Bacteria (FEW) /hpf Hyaline Casts (0-5) /lpf Urine Mucus (FEW) /hpf 12/09/18 12/09/18 12/09/18 Range/Units 16:57 17:10 17:22 WBC (3.98-10.04) K/mm3 RBC (3.98-5.22) M/mm3 Hgb (11.2-15.7) gm/L Hct (34.1-44.9) % MCV (79.4-94.8) fl MCH (25.6-32.2) pg MCHC (32.2-35.5) g/dl RDW Std Deviation (36.4-46.3) fL Plt Count (182-369) K/mm3 MPV (9.4-12.3) fl Neutrophils % (Manual) (40-60) % Band Neutrophils % (0-10) % Lymphocytes % (Manual) (20-40) % Atypical Lymphs % % Monocytes % (Manual) (2-10) % Eosinophils % (Manual) (0.7-5.8) % Basophils % (Manual) (0.1-1.2) Toxic Granulation Platelet Estimate Plt Morphology Comment RBC Morph Comment PT (9.5-12.1) SECONDS INR APTT (24-31) SECONDS Sodium (136-145) mEq/L Potassium (3.5-5.1) mEq/L Chloride (98-107) mEq/L Carbon Dioxide (21-32) mEq/L Anion Gap (5-15) BUN (7-18) mg/dL Creatinine (0.55-1.02) mg/dL Est Cr Clr Drug Dosing mL/min Estimated GFR (MDRD) (>60) mL/min BUN/Creatinine Ratio (14-18) Glucose (83-115) mg/dL POC Glucose 164 H (83-110) mg/dL Calcium (8.5-10.1) mg/dL Total Bilirubin (0.2-1.0) mg/dL AST (15-37) U/L ALT (14-59) U/L Alkaline Phosphatase (46-116) U/L C-Reactive Protein (<1.0) mg/dL NT-Pro-B Natriuret Pep 602 H (0-450) pg/mL Total Protein (6.4-8.2) g/dl Albumin (3.4-5.0) g/dl Globulin gm/dL Albumin/Globulin Ratio (1-2) Urine Color Yellow (Yellow) Urine Appearance Clear (Clear) Urine pH 5.5 (5.0-8.0) Ur Specific [place] > or = 1.030 (1.005-1.030) Urine Protein 1+ H (Negative) Urine Glucose (UA) Negative (Negative) Urine Ketones Negative (Negative) Urine Occult Blood Negative (Negative) Urine Nitrite Negative (Negative) Urine Bilirubin 1+ H (Negative) Urine Urobilinogen 0.2 (0.2-1.0) Ur Leukocyte Esterase Negative (Negative) Urine RBC 0-5 (0-5) /hpf Urine WBC 0-5 (0-5) /hpf Ur Epithelial Cells 10-20 H (0-5) /hpf Urine Bacteria Moderate H (FEW) /hpf Hyaline Casts 20-30 H (0-5) /lpf Urine Mucus Moderate H (FEW) /hpf Result Diagrams: 12/10/18 05:25 12/10/18 05:25 - Problem List (1) Acute renal injury due to hypovolemia SNOMED Code(s): 239496654 ICD Code: N17.9 - ACUTE KIDNEY FAILURE, UNSPECIFIED; E86.1 - HYPOVOLEMIA Status: Acute Current Visit: Yes (2) Diabetes SNOMED Code(s): 45393494 ICD Code: E11.9 - TYPE 2 DIABETES MELLITUS WITHOUT COMPLICATIONS Status: Acute Current Visit: Yes (3) CHF (congestive heart failure), NYHA class II SNOMED Code(s): 116655725, 138044923 ICD Code: I50.9 - HEART FAILURE, UNSPECIFIED Status: Acute Current Visit : Yes Qualifiers: Congestive heart failure type: unspecified Qualified Code(s): I50.9 - Heart failure, unspecified (4) Gastroenteritis SNOMED Code(s): 65634781 ICD Code: K52.9 - NONINFECTIVE GASTROENTERITIS AND COLITIS, UNSPECIFIED Status: Acute Current Visit: No Problem List Initiated/Reviewed/Updated: Yes Orders Last 24hrs: Active Orders 24 hr Category Date Time Status Admission Status [Patient Status] [ADT] Routine ADT 12/09/18 19:08 Active Antiembolic Devices [RC] PER UNIT ROUTINE Care 12/09/18 21:54 Active Blood Glucose Check, Bedside [RC] ONETIME Care 12/09/18 17:10 Active IS (RT) [RT Incentive Spirometry] [RC] Q1HWA Care 12/09/18 21:59 Active Oxygen Therapy [RC] PRN Care 12/09/18 21:53 Active Up ad Mikala [RC] ASDIRECTED Care 12/09/18 21:53 Active VTE/DVT Education [RC] PER UNIT ROUTINE Care 12/09/18 21:53 Active Vital Signs [RC] Q4H Care 12/09/18 21:53 Active Clear Liquid Diet [DIET] Diet 12/10/18 Breakfast Active Abdomen 2V AP Flat Upright [CR] Routine Exams 12/10/18 06:00 Ordered Chest 2V [CR] Routine Exams 12/10/18 06:00 Ordered Echo Comp wo Cont [US] Routine Exams 12/10/18 06:01 Ordered C DIFFICILE BY PCR W/NAP1 [MOLEC] Stat Lab 12/09/18 17:10 Ordered CBC WITH AUTO DIFF [HEME] AM Lab 12/10/18 05:11 Ordered CMP [COMPREHENSIVE METABOLIC PN,CMP] [CHEM] AM Lab 12/10/18 05:11 Ordered CULTURE STOOL + SHIGATOX [RM] Stat Lab 12/09/18 17:10 Ordered CULTURE URINE [RM] Stat Lab 12/09/18 17:10 Received GLYCOSYLATED HEMOGLOBIN,HGBA1C [CHEM] AM Lab 12/10/18 05:11 Ordered LACTIC ACID [CHEM] AM Lab 12/10/18 05:11 Ordered LIPASE [CHEM] Routine Lab 12/10/18 05:10 Ordered LIPID PANEL [CHEM] AM Lab 12/10/18 05:11 Ordered MAGNESIUM [CHEM] AM Lab 12/10/18 05:11 Ordered PRO B-TYPE NATRIUR PEPT,BNPPRO [CHEM] Routine Lab 12/10/18 05:10 Ordered UA W/SERG RFLX IF INDICATED [URIN] Routine Lab 12/09/18 21:57 Ordered WBC, STOOL [OP] Stat Lab 12/09/18 17:10 Ordered HYDROmorphone [Dilaudid] Med 12/09/18 21:53 Active 0.5 mg IVPUSH Q2H PRN Insulin Lispro [HumaLOG] Med 12/10/18 07:00 Active See Protocol SUBCUT QIDACANDBED Ondansetron [Zofran] Med 12/09/18 21:53 Active 4 mg IV Q4H PRN Propranolol [Inderal] Med 12/10/18 09:00 Active 40 mg PO BID Sodium Chloride 0.9% [Normal Saline] 1,000 ml Med 12/09/18 19:30 Active IV ASDIRECTED Isolation [COMM] Stat Oth 12/09/18 17:10 Ordered Sequential Compression Device [OM.PC] Per Unit Routine Oth 12/09/18 21:54 Ordered Code Status [Resuscitation Status] Routine Resus Stat 12/09/18 21:28 Ordered Medication Orders Hydromorphone HCl (Dilaudid) 0.5 mg IVPUSH Q2H PRN PRN Reason: Pain (severe 7-10) Sodium Chloride (Normal Saline) 1,000 mls @ 100 mls/hr IV ASDIRECTED [facility] Last Admin: 12/09/18 19:50 Dose: 100 mls/hr Insulin Human Lispro (Humalog) 0 unit SUBCUT QIDACANDBED [facility]; Protocol Ondansetron HCl (Zofran) 4 mg IV Q4H PRN PRN Reason: Nausea/Vomiting Propranolol HCl (Inderal) 40 mg PO BID [facility] Assessment/Plan Comment:: Assessment: * 78-year-old with insulin-dependent type 2 diabetes recently treated for UTI with Bactrim developed nausea and vomiting which led to acute renal injury * Bactrim has a potential nephrotoxic effect as well as the cause of nausea and vomiting. Also, Bactrim can elevate creatinine greater than the actual drop of the renal function. * Patient has a mildly elevated BNP with history of hypertension treated with an MICHAEL inhibitor, hydrochlorothiazide, and propranolol Plan * Slowly rehydrate with normal saline 100 mL an hour * recollect UA to confirm resolution of urinary tract infection * Start patient on sliding scale insulin since she will have lower by mouth intake. * Restart basal insulin when taking better by mouth. * Hold Tradjenta, lisinopril, and hydrochlorothiazide * Recheck CBC, CMP, C-reactive protein, proBNP, lactic acid in the morning * Depending on how kidney function response will determine if she is discharged in next couple of days versus transferred if worsening renal function. * CODE STATUS: Full code
[2018-12-09] MEDS: HYDROmorphone 0.5 MG/0.5 ML Syringe IVPUSH PRN (22:57)
[2018-12-10] MEDS: Sodium Chloride 0.9% 1,000 ML IV SCH (05:33)
[2018-12-10 07:27] LABS: HEMOGLOBIN A1C 7.2 % (4.50-6.20)
[2018-12-10] MEDS: Insulin Lispro 100 Units/ML 3 ML Vial SUBCUT SCH ×4 (07:42→21:30)
[2018-12-10] MEDS ORDERED: Propranolol 40 MG Tab PO SCH (09:00)
--- NOTE | 2018-12-10 09:22 | PCM.PN ---
- General Info Date of Service: 12/10/18 Admission Dx/Problem (Free Text): Admission Diagnosis/Problem Admission Diagnosis/Problem Dysentery Subjective Update: In to see Rosanna. she reports she feels about the same as yesterday. Repeat UA was ordered over concerns with contamination on ED sample. This returned completely normal so antibiotics were stopped. She continues to have suprapubic pain and reports she does have a history of diverticula. CRP and CBC remain WNL. Her creatinine has improved to 1.9. She received IV fluids for the better part of today and we will now stop these as she has been having good by mouth intake. She has been on a clear liquid diet and we will advance this to a soft diet. She reports her abdominal pain does wax and wane. She did have a very small bloody mucus filled bowel movement. She does report a history of hemorrhoids. She's had no nausea today. Discussed plan with Dr. Chacko and he is in agreement. We did discuss the possibility of obtaining an abdominal CT although it would likely be low yield at this point as she does not have any signs of infection or inflammation. We would like to see Ara ambulate more. We did discuss this with her and she is in agreement. suspect herniated from oxygen is based on Dilaudid she has been getting. She has been using her IS and we will switch her to oral pain medications now. Functional Status: Reports: Pain Controlled, Tolerating Diet (advance from clear liquids ), Ambulating, Urinating, Incentive Spirometry. Denies: New Symptoms - Review of Systems General: Reports: Weakness, Fatigue. Denies: Fever, Malaise, Chills HEENT: Reports: No Symptoms. Denies: Headaches, Sore Throat Pulmonary: Reports: No Symptoms. Denies: Shortness of Breath, Cough, Sputum, Wheezing Cardiovascular: Reports: No Symptoms. Denies: Chest Pain, Edema Gastrointestinal: Reports: Abdominal Pain (suprapubic ). Denies: Constipation, Diarrhea (1 very small mucousy/bloody stool.), Nausea, Vomiting Genitourinary: Reports: No Symptoms. Denies: Pain Musculoskeletal: Reports: No Symptoms Skin: Reports: No Symptoms Neurological: Reports: No Symptoms. Denies: Confusion Psychiatric: Reports: No Symptoms - Patient Data Vitals - Most Recent: Last Vital Signs Temp 97.9 F 12/10/18 01:06 Pulse 56 L 12/10/18 01:06 Resp 22 H 12/10/18 01:06 BP 106/48 L 12/10/18 01:06 Pulse Ox 94 L 12/10/18 01:06 Weight - Most Recent: 189 lb 8 oz I&O - Last 24 Hours: Intake & Output 12/09/18 12/10/18 12/10/18 22:59 06:59 14:59 Intake Total 1264 Output Total 1050 Balance 214 Lab Results Last 24 Hours: Laboratory Results - last 24 hr 12/09/18 12/09/18 12/09/18 Range/Units 16:57 16:57 16:57 WBC 10.74 H (3.98-10.04) K/mm3 RBC 4.12 (3.98-5.22) M/mm3 Hgb 12.3 (11.2-15.7) gm/L Hct 37.9 (34.1-44.9) % MCV 92.0 (79.4-94.8) fl MCH 29.9 (25.6-32.2) pg MCHC 32.5 (32.2-35.5) g/dl RDW Std Deviation 44.0 (36.4-46.3) fL Plt Count 295 (182-369) K/mm3 MPV 10.1 (9.4-12.3) fl Neut % (Auto) (34.0-71.1) % Lymph % (Auto) (19.3-51.7) % [place] % (Auto) (4.7-12.5) % Eos % (Auto) (0.7-5.8) Baso % (Auto) (0.1-1.2) % Neut # (Auto) (1.56-6.13) K/mm3 Lymph # (Auto) (1.18-3.74) K/mm3 [place] # (Auto) (0.24-0.36) K/mm3 Eos # (Auto) (0.04-0.36) K/mm3 Baso # (Auto) (0.01-0.08) K/mm3 Neutrophils % (Manual) 85 H (40-60) % Band Neutrophils % 0 (0-10) % Lymphocytes % (Manual) 12 L (20-40) % Atypical Lymphs % 0 % Monocytes % (Manual) 3 (2-10) % Eosinophils % (Manual) 0 L (0.7-5.8) % Basophils % (Manual) 0 L (0.1-1.2) Toxic Granulation 1+ slight Platelet Estimate Adequate Plt Morphology Comment Normal RBC Morph Comment Normal PT 10.0 (9.5-12.1) SECONDS INR < 0.93 APTT 23 L (24-31) SECONDS Sodium 136 (136-145) mEq/L Potassium 4.5 (3.5-5.1) mEq/L Chloride 102 (98-107) mEq/L Carbon Dioxide 23 (21-32) mEq/L Anion Gap 15.5 H (5-15) BUN 40 H (7-18) mg/dL Creatinine 2.6 H D (0.55-1.02) mg/dL Est Cr Clr Drug Dosing 14.56 mL/min Estimated GFR (MDRD) 18 (>60) mL/min BUN/Creatinine Ratio 15.4 (14-18) Glucose 172 H (83-115) mg/dL POC Glucose (83-110) mg/dL Hemoglobin A1c (4.50-6.20) % Lactic Acid (0.4-2.0) mmol/L Calcium 9.1 (8.5-10.1) mg/dL Magnesium (1.8-2.4) mg/dl Total Bilirubin 0.4 (0.2-1.0) mg/dL AST 23 (15-37) U/L ALT 31 (14-59) U/L Alkaline Phosphatase 124 H (46-116) U/L C-Reactive Protein 0.3 (<1.0) mg/dL NT-Pro-B Natriuret Pep (0-450) pg/mL Total Protein 7.3 (6.4-8.2) g/dl Albumin 3.6 (3.4-5.0) g/dl Globulin 3.7 gm/dL Albumin/Globulin Ratio 1.0 (1-2) Triglycerides (<150) mg/dL Cholesterol (<200) mg/dL LDL Cholesterol Direct (<100) mg/dL HDL Cholesterol (40-59) mg/dL Lipase (73-393) U/L Urine Color (Yellow) Urine Appearance (Clear) Urine pH (5.0-8.0) Ur Specific [place] (1.005-1.030) Urine Protein (Negative) Urine Glucose (UA) (Negative) Urine Ketones (Negative) Urine Occult Blood (Negative) Urine Nitrite (Negative) Urine Bilirubin (Negative) Urine Urobilinogen (0.2-1.0) Ur Leukocyte Esterase (Negative) Urine RBC (0-5) /hpf Urine WBC (0-5) /hpf Ur Epithelial Cells (0-5) /hpf Urine Bacteria (FEW) /hpf Hyaline Casts (0-5) /lpf Urine Mucus (FEW) /hpf 12/09/18 12/09/18 12/09/18 Range/Units 16:57 17:10 17:22 WBC (3.98-10.04) K/mm3 RBC (3.98-5.22) M/mm3 Hgb (11.2-15.7) gm/L Hct (34.1-44.9) % MCV (79.4-94.8) fl MCH (25.6-32.2) pg MCHC (32.2-35.5) g/dl RDW Std Deviation (36.4-46.3) fL Plt Count (182-369) K/mm3 MPV (9.4-12.3) fl Neut % (Auto) (34.0-71.1) % Lymph % (Auto) (19.3-51.7) % [place] % (Auto) (4.7-12.5) % Eos % (Auto) (0.7-5.8) Baso % (Auto) (0.1-1.2) % Neut # (Auto) (1.56-6.13) K/mm3 Lymph # (Auto) (1.18-3.74) K/mm3 [place] # (Auto) (0.24-0.36) K/mm3 Eos # (Auto) (0.04-0.36) K/mm3 Baso # (Auto) (0.01-0.08) K/mm3 Neutrophils % (Manual) (40-60) % Band Neutrophils % (0-10) % Lymphocytes % (Manual) (20-40) % Atypical Lymphs % % Monocytes % (Manual) (2-10) % Eosinophils % (Manual) (0.7-5.8) % Basophils % (Manual) (0.1-1.2) Toxic Granulation Platelet Estimate Plt Morphology Comment RBC Morph Comment PT (9.5-12.1) SECONDS INR APTT (24-31) SECONDS Sodium (136-145) mEq/L Potassium (3.5-5.1) mEq/L Chloride (98-107) mEq/L Carbon Dioxide (21-32) mEq/L Anion Gap (5-15) BUN (7-18) mg/dL Creatinine (0.55-1.02) mg/dL Est Cr Clr Drug Dosing mL/min Estimated GFR (MDRD) (>60) mL/min BUN/Creatinine Ratio (14-18) Glucose (83-115) mg/dL POC Glucose 164 H (83-110) mg/dL Hemoglobin A1c (4.50-6.20) % Lactic Acid (0.4-2.0) mmol/L Calcium (8.5-10.1) mg/dL Magnesium (1.8-2.4) mg/dl Total Bilirubin (0.2-1.0) mg/dL AST (15-37) U/L ALT (14-59) U/L Alkaline Phosphatase (46-116) U/L C-Reactive Protein (<1.0) mg/dL NT-Pro-B Natriuret Pep 602 H (0-450) pg/mL Total Protein (6.4-8.2) g/dl Albumin (3.4-5.0) g/dl Globulin gm/dL Albumin/Globulin Ratio (1-2) Triglycerides (<150) mg/dL Cholesterol (<200) mg/dL LDL Cholesterol Direct (<100) mg/dL HDL Cholesterol (40-59) mg/dL Lipase (73-393) U/L Urine Color Yellow (Yellow) Urine Appearance Clear (Clear) Urine pH 5.5 (5.0-8.0) Ur Specific [place] > or = 1.030 (1.005-1.030) Urine Protein 1+ H (Negative) Urine Glucose (UA) Negative (Negative) Urine Ketones Negative (Negative) Urine Occult Blood Negative (Negative) Urine Nitrite Negative (Negative) Urine Bilirubin 1+ H (Negative) Urine Urobilinogen 0.2 (0.2-1.0) Ur Leukocyte Esterase Negative (Negative) Urine RBC 0-5 (0-5) /hpf Urine WBC 0-5 (0-5) /hpf Ur Epithelial Cells 10-20 H (0-5) /hpf Urine Bacteria Moderate H (FEW) /hpf Hyaline Casts 20-30 H (0-5) /lpf Urine Mucus Moderate H (FEW) /hpf 12/09/18 12/10/18 12/10/18 Range/Units 22:56 01:20 05:25 WBC (3.98-10.04) K/mm3 RBC (3.98-5.22) M/mm3 Hgb (11.2-15.7) gm/L Hct (34.1-44.9) % MCV (79.4-94.8) fl MCH (25.6-32.2) pg MCHC (32.2-35.5) g/dl RDW Std Deviation (36.4-46.3) fL Plt Count (182-369) K/mm3 MPV (9.4-12.3) fl Neut % (Auto) (34.0-71.1) % Lymph % (Auto) (19.3-51.7) % [place] % (Auto) (4.7-12.5) % Eos % (Auto) (0.7-5.8) Baso % (Auto) (0.1-1.2) % Neut # (Auto) (1.56-6.13) K/mm3 Lymph # (Auto) (1.18-3.74) K/mm3 [place] # (Auto) (0.24-0.36) K/mm3 Eos # (Auto) (0.04-0.36) K/mm3 Baso # (Auto) (0.01-0.08) K/mm3 Neutrophils % (Manual) (40-60) % Band Neutrophils % (0-10) % Lymphocytes % (Manual) (20-40) % Atypical Lymphs % % Monocytes % (Manual) (2-10) % Eosinophils % (Manual) (0.7-5.8) % Basophils % (Manual) (0.1-1.2) Toxic Granulation Platelet Estimate Plt Morphology Comment RBC Morph Comment PT (9.5-12.1) SECONDS INR APTT (24-31) SECONDS Sodium 139 (136-145) mEq/L Potassium 3.7 (3.5-5.1) mEq/L Chloride 106 (98-107) mEq/L Carbon Dioxide 24 (21-32) mEq/L Anion Gap 12.7 (5-15) BUN 32 H (7-18) mg/dL Creatinine 1.9 H (0.55-1.02) mg/dL Est Cr Clr Drug Dosing 19.92 mL/min Estimated GFR (MDRD) 26 (>60) mL/min BUN/Creatinine Ratio 16.8 (14-18) Glucose 96 (83-115) mg/dL POC Glucose 131 H (83-110) mg/dL Hemoglobin A1c (4.50-6.20) % Lactic Acid (0.4-2.0) mmol/L Calcium 8.4 L (8.5-10.1) mg/dL Magnesium 1.8 (1.8-2.4) mg/dl Total Bilirubin 0.4 (0.2-1.0) mg/dL AST 77 H (15-37) U/L ALT 78 H (14-59) U/L Alkaline Phosphatase 122 H (46-116) U/L C-Reactive Protein (<1.0) mg/dL NT-Pro-B Natriuret Pep (0-450) pg/mL Total Protein 6.1 L (6.4-8.2) g/dl Albumin 2.8 L (3.4-5.0) g/dl Globulin 3.3 gm/dL Albumin/Globulin Ratio 0.9 L (1-2) Triglycerides 101 (<150) mg/dL Cholesterol 146 (<200) mg/dL LDL Cholesterol Direct 87 (<100) mg/dL HDL Cholesterol 42.0 (40-59) mg/dL Lipase 314 (73-393) U/L Urine Color Yellow (Yellow) Urine Appearance Clear (Clear) Urine pH 5.5 (5.0-8.0) Ur Specific [place] 1.020 (1.005-1.030) Urine Protein Negative (Negative) Urine Glucose (UA) Negative (Negative) Urine Ketones Negative (Negative) Urine Occult Blood Negative (Negative) Urine Nitrite Negative (Negative) Urine Bilirubin Negative (Negative) Urine Urobilinogen 0.2 (0.2-1.0) Ur Leukocyte Esterase Negative (Negative) Urine RBC Not seen (0-5) /hpf Urine WBC 0-5 (0-5) /hpf Ur Epithelial Cells 0-5 (0-5) /hpf Urine Bacteria Not seen (FEW) /hpf Hyaline Casts (0-5) /lpf Urine Mucus Not seen (FEW) /hpf 12/10/18 12/10/18 12/10/18 Range/Units 05:25 05:25 05:25 WBC 7.27 (3.98-10.04) K/mm3 RBC 3.36 L (3.98-5.22) M/mm3 Hgb 10.2 L D (11.2-15.7) gm/L Hct 31.4 L (34.1-44.9) % MCV 93.5 (79.4-94.8) fl MCH 30.4 (25.6-32.2) pg MCHC 32.5 (32.2-35.5) g/dl RDW Std Deviation 44.7 (36.4-46.3) fL Plt Count 208 D (182-369) K/mm3 MPV 10.1 (9.4-12.3) fl Neut % (Auto) 64.2 (34.0-71.1) % Lymph % (Auto) 22.8 (19.3-51.7) % [place] % (Auto) 10.5 (4.7-12.5) % Eos % (Auto) 2.1 (0.7-5.8) Baso % (Auto) 0.3 (0.1-1.2) % Neut # (Auto) 4.67 (1.56-6.13) K/mm3 Lymph # (Auto) 1.66 (1.18-3.74) K/mm3 [place] # (Auto) 0.76 H (0.24-0.36) K/mm3 Eos # (Auto) 0.15 (0.04-0.36) K/mm3 Baso # (Auto) 0.02 (0.01-0.08) K/mm3 Neutrophils % (Manual) (40-60) % Band Neutrophils % (0-10) % Lymphocytes % (Manual) (20-40) % Atypical Lymphs % % Monocytes % (Manual) (2-10) % Eosinophils % (Manual) (0.7-5.8) % Basophils % (Manual) (0.1-1.2) Toxic Granulation Platelet Estimate Plt Morphology Comment RBC Morph Comment PT (9.5-12.1) SECONDS INR APTT (24-31) SECONDS Sodium (136-145) mEq/L Potassium (3.5-5.1) mEq/L Chloride (98-107) mEq/L Carbon Dioxide (21-32) mEq/L Anion Gap (5-15) BUN (7-18) mg/dL Creatinine (0.55-1.02) mg/dL Est Cr Clr Drug Dosing mL/min Estimated GFR (MDRD) (>60) mL/min BUN/Creatinine Ratio (14-18) Glucose (83-115) mg/dL POC Glucose (83-110) mg/dL Hemoglobin A1c 7.20 H (4.50-6.20) % Lactic Acid 0.7 (0.4-2.0) mmol/L Calcium (8.5-10.1) mg/dL Magnesium (1.8-2.4) mg/dl Total Bilirubin (0.2-1.0) mg/dL AST (15-37) U/L ALT (14-59) U/L Alkaline Phosphatase (46-116) U/L C-Reactive Protein (<1.0) mg/dL NT-Pro-B Natriuret Pep (0-450) pg/mL Total Protein (6.4-8.2) g/dl Albumin (3.4-5.0) g/dl Globulin gm/dL Albumin/Globulin Ratio (1-2) Triglycerides (<150) mg/dL Cholesterol (<200) mg/dL LDL Cholesterol Direct (<100) mg/dL HDL Cholesterol (40-59) mg/dL Lipase (73-393) U/L Urine Color (Yellow) Urine Appearance (Clear) Urine pH (5.0-8.0) Ur Specific [place] (1.005-1.030) Urine Protein (Negative) Urine Glucose (UA) (Negative) Urine Ketones (Negative) Urine Occult Blood (Negative) Urine Nitrite (Negative) Urine Bilirubin (Negative) Urine Urobilinogen (0.2-1.0) Ur Leukocyte Esterase (Negative) Urine RBC (0-5) /hpf Urine WBC (0-5) /hpf Ur Epithelial Cells (0-5) /hpf Urine Bacteria (FEW) /hpf Hyaline Casts (0-5) /lpf Urine Mucus (FEW) /hpf 12/10/ Range/Units 05:25 WBC (3.98-10.04) K/mm3 RBC (3.98-5.22) M/mm3 Hgb (11.2-15.7) gm/L Hct (34.1-44.9) % MCV (79.4-94.8) fl MCH (25.6-32.2) pg MCHC (32.2-35.5) g/dl RDW Std Deviation (36.4-46.3) fL Plt Count (182-369) K/mm3 MPV (9.4-12.3) fl Neut % (Auto) (34.0-71.1) % Lymph % (Auto) (19.3-51.7) % [place] % (Auto) (4.7-12.5) % Eos % (Auto) (0.7-5.8) Baso % (Auto) (0.1-1.2) % Neut # (Auto) (1.56-6.13) K/mm3 Lymph # (Auto) (1.18-3.74) K/mm3 [place] # (Auto) (0.24-0.36) K/mm3 Eos # (Auto) (0.04-0.36) K/mm3 Baso # (Auto) (0.01-0.08) K/mm3 Neutrophils % (Manual) (40-60) % Band Neutrophils % (0-10) % Lymphocytes % (Manual) (20-40) % Atypical Lymphs % % Monocytes % (Manual) (2-10) % Eosinophils % (Manual) (0.7-5.8) % Basophils % (Manual) (0.1-1.2) Toxic Granulation Platelet Estimate Plt Morphology Comment RBC Morph Comment PT (9.5-12.1) SECONDS INR APTT (24-31) SECONDS Sodium (136-145) mEq/L Potassium (3.5-5.1) mEq/L Chloride (98-107) mEq/L Carbon Dioxide (21-32) mEq/L Anion Gap (5-15) BUN (7-18) mg/dL Creatinine (0.55-1.02) mg/dL Est Cr Clr Drug Dosing mL/min Estimated GFR (MDRD) (>60) mL/min BUN/Creatinine Ratio (14-18) Glucose (83-115) mg/dL POC Glucose (83-110) mg/dL Hemoglobin A1c (4.50-6.20) % Lactic Acid (0.4-2.0) mmol/L Calcium (8.5-10.1) mg/dL Magnesium (1.8-2.4) mg/dl Total Bilirubin (0.2-1.0) mg/dL AST (15-37) U/L ALT (14-59) U/L Alkaline Phosphatase (46-116) U/L C-Reactive Protein (<1.0) mg/dL NT-Pro-B Natriuret Pep 532 H (0-450) pg/mL Total Protein (6.4-8.2) g/dl Albumin (3.4-5.0) g/dl Globulin gm/dL Albumin/Globulin Ratio (1-2) Triglycerides (<150) mg/dL Cholesterol (<200) mg/dL LDL Cholesterol Direct (<100) mg/dL HDL Cholesterol (40-59) mg/dL Lipase (73-393) U/L Urine Color (Yellow) Urine Appearance (Clear) Urine pH (5.0-8.0) Ur Specific [place] (1.005-1.030) Urine Protein (Negative) Urine Glucose (UA) (Negative) Urine Ketones (Negative) Urine Occult Blood (Negative) Urine Nitrite (Negative) Urine Bilirubin (Negative) Urine Urobilinogen (0.2-1.0) Ur Leukocyte Esterase (Negative) Urine RBC (0-5) /hpf Urine WBC (0-5) /hpf Ur Epithelial Cells (0-5) /hpf Urine Bacteria (FEW) /hpf Hyaline Casts (0-5) /lpf Urine Mucus (FEW) /hpf Med Orders - Current: Current Medications Hydromorphone HCl (Dilaudid) 0.5 mg IVPUSH Q2H PRN PRN Reason: Pain (severe 7-10) Last Admin: 12/09/18 22:57 Dose: 0.5 mg Sodium Chloride (Normal Saline) 1,000 mls @ 100 mls/hr IV ASDIRECTED [facility] Last Admin: 12/10/18 05:33 Dose: 100 mls/hr Insulin Human Lispro (Humalog) 0 unit SUBCUT QIDACANDBED [facility]; Protocol Last Admin: 12/10/18 07:42 Dose: Not Given Ondansetron HCl (Zofran) 4 mg IV Q4H PRN PRN Reason: Nausea/Vomiting Propranolol HCl (Inderal) 40 mg PO BID [facility] Discontinued Medications Diphenhydramine HCl (Benadryl) 25 mg IVPUSH ONETIME ONE Stop: 12/09/18 19:33 Last Admin: 12/09/18 23:50 Dose: Not Given Hydromorphone HCl (Dilaudid) 0.5 mg IVPUSH ONETIME ONE Stop: 12/09/18 17:10 Last Admin: 12/09/18 17:14 Dose: 0.5 mg Sodium Chloride (Normal Saline) 1,000 mls @ 500 mls/hr IV ASDIRECTED [facility] Last Admin: 12/09/18 17:13 Dose: 500 mls/hr Ceftriaxone Sodium 2 gm/ (Sodium Chloride) 100 mls @ 200 mls/hr IV ONETIME ONE Stop: 12/09/18 19:12 Last Admin: 12/09/18 18:48 Dose: 200 mls/hr Metoclopramide HCl (Reglan) 7.5 mg IVPUSH ONETIME ONE Stop: 12/09/18 17:08 Last Admin: 12/09/18 17:14 Dose: 7.5 mg - Exam Quality Assessment: Supplemental Oxygen, DVT Prophylaxis General: Alert, Oriented, Cooperative, No Acute Distress HEENT: Pupils Equal, Pupils Reactive, EOMI, Mucous Membr. Moist/[place] Neck: Supple, Trachea Midline Lungs: Clear to Auscultation, Normal Respiratory Effort Cardiovascular: Regular Rate, Regular Rhythm GI/Abdominal Exam: Soft, Distended (mildly), Tender (Suprapubic ), Abnormal Bowel Sounds. No: Guarding, Rigid, Rebound (Female) Exam: Deferred Back Exam: Normal Inspection, Full Range of Motion Extremities: Normal Inspection, Normal Range of Motion, Non-Tender, No Pedal Edema, Normal Capillary Refill Peripheral Pulses: 2+: Radial (L), Radial (R), Dorsalis Pedis (L), Dorsalis Pedis (R) Skin: Warm, Dry, Intact Neurological: No New Focal Deficit Psy/Mental Status: Alert, Normal Affect, Normal Mood - Problem List & Annotations (1) Acute renal injury due to hypovolemia SNOMED Code(s): 767725852 Code(s): N17.9 - ACUTE KIDNEY FAILURE, UNSPECIFIED; E86.1 - HYPOVOLEMIA Status: Acute Priority: High Current Visit: Yes (2) Chronic renal insufficiency, stage IV (severe) SNOMED Code(s): 00241072 Code(s): N18.4 - CHRONIC KIDNEY DISEASE, STAGE 4 (SEVERE) Status: Chronic Priority: High Current Visit: Yes (3) Diabetes SNOMED Code(s): 36297488 Code(s): E11.9 - TYPE 2 DIABETES MELLITUS WITHOUT COMPLICATIONS Status: Chronic Priority: Medium Current Visit: Yes Qualifiers: Diabetes mellitus type: type 2 Diabetes mellitus intermediate school teacher insulin use: without intermediate school teacher use Diabetes mellitus complication status: without complication Qualified Code(s): E11.9 - Type 2 diabetes mellitus without complications (4) Nausea & vomiting SNOMED Code(s): 17748482 Code(s): R11.2 - NAUSEA WITH VOMITING, UNSPECIFIED Status: Resolved Priority: High Current Visit: Yes Qualifiers: Vomiting type: bilious vomiting Qualified Code(s): R11.14 - Bilious vomiting (5) Gastroenteritis SNOMED Code(s): 03950421 Code(s): K52.9 - NONINFECTIVE GASTROENTERITIS AND COLITIS, UNSPECIFIED Status: Acute Priority: High Current Visit: Yes - Problem List Review Problem List Initiated/Reviewed/Updated: Yes - Plan Plan:: Assessment: * 78-year-old with insulin-dependent type 2 diabetes recently treated for UTI with Bactrim developed nausea and vomiting which led to acute renal injury * Bactrim has a potential nephrotoxic effect as well as the cause of nausea and vomiting. Also, Bactrim can elevate creatinine greater than the actual drop of the renal function. * Patient has a mildly elevated BNP with history of hypertension treated with an MICHAEL inhibitor, hydrochlorothiazide, and propranolol Plan * Slowly rehydrate with normal saline 100 mL an hour -> discontinue now as she is responding well * recollect UA to confirm resolution of urinary tract infection -> negative so will stop ABX * Start patient on sliding scale insulin since she will have lower by mouth intake. * Restart basal insulin when taking better by mouth. * Hold Tradjenta, lisinopril, and hydrochlorothiazide * Recheck labs in the morning * Kidneys responding well to hydration. Will encourage oral hydration now and stop IV fluids. * PO pain medications * Wean from O2 - likely 2/2 minimal ambulation and IV Dilaudid * Ambulate * Advance diet to soft * Hold propranolol due to low HR * Echo obtained and pending * Consider abdominal CT if no improvement with abdominal pain. * CODE STATUS: Full code
[2018-12-10] MEDS: HYDROmorphone 0.5 MG/0.5 ML Syringe IVPUSH PRN (09:40)
--- NOTE | 2018-12-10 10:42 | CR ---
Abdomen: Supine and upright views of the abdomen were obtained. Comparison: No prior abdominal x-ray, previous CT abdomen and pelvis exam of 04/10/16. Scattered small bowel gas and colonic gas is seen which appears within normal limits. Calcifications are seen within the pelvis compatible with phleboliths. Minimal degenerative endplate spurring is seen within the spine. No free air is seen. Impression: 1. Incidental findings. Diagnostic code #2
--- NOTE | 2018-12-10 10:42 | CR ---
Chest: PA and lateral views of the chest are obtained. Comparison: No prior chest x-ray is available. Heart is enlarged. Pulmonary vessels are felt to be mildly congested. Linear densities are noted within the left mid lung as well as within the right lateral costophrenic angle either due to atelectasis and/or scarring. Lungs otherwise are clear. Diaphragms are slightly flattened on the lateral view suggesting emphysematous change. Degenerative endplate spurring is noted within the spine. Impression: 1. Findings suspicious for mild CHF. 2. Emphysematous change and other incidental findings. Diagnostic code #3
[2018-12-10] MEDS: Acetaminophen/HYDROcodone 325-5 MG Tab PO PRN ×2 (14:41→21:44)
[2018-12-11] MEDS: Insulin Lispro 100 Units/ML 3 ML Vial SUBCUT SCH ×4 (06:08→21:05)
[2018-12-11] MEDS: Acetaminophen/HYDROcodone 325-5 MG Tab PO PRN (07:52)
[2018-12-11] MEDS: Propranolol 40 MG Tab PO SCH ×2 (09:47→21:04)
[2018-12-11] MEDS: Hydrochlorothiazide 25 MG Tab PO SCH (11:35)
--- NOTE | 2018-12-11 14:49 | PCM.PN ---
- General Info Date of Service: 12/11/18 Admission Dx/Problem (Free Text): Admission Diagnosis/Problem Admission Diagnosis/Problem Dysentery Subjective Update: December 10, 2018 In to see Rosanna. she reports she feels about the same as yesterday. Repeat UA was ordered over concerns with contamination on ED sample. This returned completely normal so antibiotics were stopped. She continues to have suprapubic pain and reports she does have a history of diverticula. CRP and CBC remain WNL. Her creatinine has improved to 1.9. She received IV fluids for the better part of today and we will now stop these as she has been having good by mouth intake. She has been on a clear liquid diet and we will advance this to a soft diet. She reports her abdominal pain does wax and wane. She did have a very small bloody mucus filled bowel movement. She does report a history of hemorrhoids. She's had no nausea today. Discussed plan with Dr. Chacko and he is in agreement. We did discuss the possibility of obtaining an abdominal CT although it would likely be low yield at this point as she does not have any signs of infection or inflammation. We would like to see Ara ambulate more. We did discuss this with her and she is in agreement. suspect herniated from oxygen is based on Dilaudid she has been getting. She has been using her IS and we will switch her to oral pain medications now. December 11, 2018 Patient states that she is continuing to have episodes of diarrhea in the morning and towards the afternoon it improved to just gas. Renal function has improved, but now she has developed a headache. Earlier today blood pressure did increase 271 systolic. They were holding her Lopressor secondary to bradycardia and her lisinopril and hydrochlorothiazide secondary to renal insufficiency. - Review of Systems General: Reports: Fatigue HEENT: Reports: Headaches Pulmonary: Reports: No Symptoms. Denies: Shortness of Breath, Cough Cardiovascular: Reports: No Symptoms. Denies: Chest Pain, Palpitations Gastrointestinal: Reports: No Symptoms. Denies: Abdominal Pain - Patient Data Vitals - Most Recent: Last Vital Signs Temp 98.6 F 12/11/18 11:29 Pulse 51 L 12/11/18 11:29 Resp 18 12/11/18 11:29 BP 131/62 12/11/18 11:29 Pulse Ox 91 L 12/11/18 11:29 Weight - Most Recent: 187 lb 6 oz I&O - Last 24 Hours: Intake & Output 12/10/18 12/11/18 12/11/18 22:59 06:59 14:59 Intake Total 1820 500 120 Output Total 1400 1000 Balance 420 -500 120 Lab Results Last 24 Hours: Laboratory Results - last 24 hr 12/10/18 12/10/18 12/10/18 Range/Units 16:53 17:34 18:55 WBC (3.98-10.04) K/mm3 RBC (3.98-5.22) M/mm3 Hgb (11.2-15.7) gm/L Hct (34.1-44.9) % MCV (79.4-94.8) fl MCH (25.6-32.2) pg MCHC (32.2-35.5) g/dl RDW Std Deviation (36.4-46.3) fL Plt Count (182-369) K/mm3 MPV (9.4-12.3) fl Neutrophils % (Manual) (40-60) % Band Neutrophils % (0-10) % Lymphocytes % (Manual) (20-40) % Atypical Lymphs % % Monocytes % (Manual) (2-10) % Eosinophils % (Manual) (0.7-5.8) % Basophils % (Manual) (0.1-1.2) Platelet Estimate RBC Morph Comment Sodium (136-145) mEq/L Potassium (3.5-5.1) mEq/L Chloride (98-107) mEq/L Carbon Dioxide (21-32) mEq/L Anion Gap (5-15) BUN (7-18) mg/dL Creatinine (0.55-1.02) mg/dL Est Cr Clr Drug Dosing mL/min Estimated GFR (MDRD) (>60) mL/min BUN/Creatinine Ratio (14-18) Glucose (83-115) mg/dL POC Glucose 71 L 102 (83-110) mg/dL Calcium (8.5-10.1) mg/dL Magnesium (1.8-2.4) mg/dl Total Bilirubin (0.2-1.0) mg/dL AST (15-37) U/L ALT (14-59) U/L Alkaline Phosphatase (46-116) U/L Lactate Dehydrogenase (81-234) U/L C-Reactive Protein (<1.0) mg/dL Total Protein (6.4-8.2) g/dl Albumin (3.4-5.0) g/dl Globulin gm/dL Albumin/Globulin Ratio (1-2) C.difficile 027-NAP1-B1 Presumptive negative C. difficile Tox (PCR) Negative 12/10/18 12/11/18 12/11/18 Range/Units 21:20 05:06 05:06 WBC 5.64 (3.98-10.04) K/mm3 RBC 3.57 L (3.98-5.22) M/mm3 Hgb 10.8 L (11.2-15.7) gm/L Hct 33.7 L (34.1-44.9) % MCV 94.4 (79.4-94.8) fl MCH 30.3 (25.6-32.2) pg MCHC 32.0 L (32.2-35.5) g/dl RDW Std Deviation 44.7 (36.4-46.3) fL Plt Count 213 (182-369) K/mm3 MPV 10.1 (9.4-12.3) fl Neutrophils % (Manual) 73 H (40-60) % Band Neutrophils % 0 (0-10) % Lymphocytes % (Manual) 23 (20-40) % Atypical Lymphs % 0 % Monocytes % (Manual) 3 (2-10) % Eosinophils % (Manual) 1 (0.7-5.8) % Basophils % (Manual) 0 L (0.1-1.2) Platelet Estimate Adequate RBC Morph Comment Normal Sodium 142 (136-145) mEq/L Potassium 4.3 (3.5-5.1) mEq/L Chloride 107 (98-107) mEq/L Carbon Dioxide 27 (21-32) mEq/L Anion Gap 12.3 (5-15) BUN 18 (7-18) mg/dL Creatinine 1.3 H (0.55-1.02) mg/dL Est Cr Clr Drug Dosing 29.12 mL/min Estimated GFR (MDRD) 40 (>60) mL/min BUN/Creatinine Ratio 13.8 L (14-18) Glucose 104 (83-115) mg/dL POC Glucose 120 H (83-110) mg/dL Calcium 9.2 (8.5-10.1) mg/dL Magnesium 1.9 (1.8-2.4) mg/dl Total Bilirubin 0.5 (0.2-1.0) mg/dL AST 38 H (15-37) U/L ALT 63 H (14-59) U/L Alkaline Phosphatase 120 H (46-116) U/L Lactate Dehydrogenase 205 (81-234) U/L C-Reactive Protein 2.0 H* (<1.0) mg/dL Total Protein 6.6 (6.4-8.2) g/dl Albumin 3.0 L (3.4-5.0) g/dl Globulin 3.6 gm/dL Albumin/Globulin Ratio 0.8 L (1-2) C.difficile 027-NAP1-B1 C. difficile Tox (PCR) 12/11/18 12/11/18 Range/Units 05:56 11:27 WBC (3.98-10.04) K/mm3 RBC (3.98-5.22) M/mm3 Hgb (11.2-15.7) gm/L Hct (34.1-44.9) % MCV (79.4-94.8) fl MCH (25.6-32.2) pg MCHC (32.2-35.5) g/dl RDW Std Deviation (36.4-46.3) fL Plt Count (182-369) K/mm3 MPV (9.4-12.3) fl Neutrophils % (Manual) (40-60) % Band Neutrophils % (0-10) % Lymphocytes % (Manual) (20-40) % Atypical Lymphs % % Monocytes % (Manual) (2-10) % Eosinophils % (Manual) (0.7-5.8) % Basophils % (Manual) (0.1-1.2) Platelet Estimate RBC Morph Comment Sodium (136-145) mEq/L Potassium (3.5-5.1) mEq/L Chloride (98-107) mEq/L Carbon Dioxide (21-32) mEq/L Anion Gap (5-15) BUN (7-18) mg/dL Creatinine (0.55-1.02) mg/dL Est Cr Clr Drug Dosing mL/min Estimated GFR (MDRD) (>60) mL/min BUN/Creatinine Ratio (14-18) Glucose (83-115) mg/dL POC Glucose 101 121 H (83-110) mg/dL Calcium (8.5-10.1) mg/dL Magnesium (1.8-2.4) mg/dl Total Bilirubin (0.2-1.0) mg/dL AST (15-37) U/L ALT (14-59) U/L Alkaline Phosphatase (46-116) U/L Lactate Dehydrogenase (81-234) U/L C-Reactive Protein (<1.0) mg/dL Total Protein (6.4-8.2) g/dl Albumin (3.4-5.0) g/dl Globulin gm/dL Albumin/Globulin Ratio (1-2) C.difficile 027-NAP1-B1 C. difficile Tox (PCR) Wesley Results Last 24 Hours: Microbiology 12/10/18 18:55 Shiga Toxin I - Final Stool / Feces NEGATIVE FOR SHIGA TOXIN 1 REFERENCE RANGE: NEGATIVE Shiga Toxin II - Final NEGATIVE FOR SHIGA TOXIN 2 REFERENCE RANGE: NEGATIVE 12/10/18 16:50 Stool for WBCs - Final Stool / Feces NO WBC SEEN REFERENCE RANGE: NO WBC SEEN Med Orders - Current: Current Medications Hydrocodone Bitart/Acetaminophen ([place] 325-5 Mg) 1 tab PO Q4H PRN PRN Reason: Pain Last Admin: 12/11/18 07:52 Dose: 1 tab Hydrochlorothiazide (Hydrochlorothiazide) 25 mg PO DAILY [facility] Last Admin: 12/11/18 11:35 Dose: 25 mg Hydromorphone HCl (Dilaudid) 0.5 mg IVPUSH Q2H PRN PRN Reason: Pain (severe 7-10) Last Admin: 12/10/18 09:40 Dose: 0.5 mg Insulin Human Lispro (Humalog) 0 unit SUBCUT QIDACANDBED [facility]; Protocol Last Admin: 12/11/18 11:31 Dose: Not Given Ondansetron HCl (Zofran) 4 mg IV Q4H PRN PRN Reason: Nausea/Vomiting Propranolol HCl (Inderal) 40 mg PO BID [facility] Last Admin: 12/11/18 09:47 Dose: 40 mg Discontinued Medications Diphenhydramine HCl (Benadryl) 25 mg IVPUSH ONETIME ONE Stop: 12/09/18 19:33 Last Admin: 12/09/18 23:50 Dose: Not Given Hydromorphone HCl (Dilaudid) 0.5 mg IVPUSH ONETIME ONE Stop: 12/09/18 17:10 Last Admin: 12/09/18 17:14 Dose: 0.5 mg Sodium Chloride (Normal Saline) 1,000 mls @ 500 mls/hr IV ASDIRECTED [facility] Last Admin: 12/09/18 17:13 Dose: 500 mls/hr Ceftriaxone Sodium 2 gm/ (Sodium Chloride) 100 mls @ 200 mls/hr IV ONETIME ONE Stop: 12/09/18 19:12 Last Admin: 12/09/18 18:48 Dose: 200 mls/hr Sodium Chloride (Normal Saline) 1,000 mls @ 100 mls/hr IV ASDIRECTED [facility] Last Admin: 12/10/18 05:33 Dose: 100 mls/hr Metoclopramide HCl (Reglan) 7.5 mg IVPUSH ONETIME ONE Stop: 12/09/18 17:08 Last Admin: 12/09/18 17:14 Dose: 7.5 mg Propranolol HCl (Inderal) 40 mg PO BID [facility] Last Admin: 12/10/18 10:14 Dose: Not Given - Exam Quality Assessment: No: Supplemental Oxygen General: Alert, Oriented HEENT: Pupils Equal, Pupils Reactive Neck: Supple Lungs: Clear to Auscultation, Normal Respiratory Effort Cardiovascular: Regular Rate, Regular Rhythm GI/Abdominal Exam: Normal Bowel Sounds, Soft, Non-Tender, No Organomegaly, No Distention Extremities: Normal Inspection, Normal Range of Motion, Non-Tender, No Pedal Edema Skin: Warm, Dry, Intact Neurological: No New Focal Deficit Psy/Mental Status: Alert, Normal Affect, Normal Mood - Problem List & Annotations (1) Acute renal injury due to hypovolemia SNOMED Code(s): 159540798 Code(s): N17.9 - ACUTE KIDNEY FAILURE, UNSPECIFIED; E86.1 - HYPOVOLEMIA Status: Acute Priority: High Current Visit: Yes (2) Diabetes SNOMED Code(s): 54653484 Code(s): E11.9 - TYPE 2 DIABETES MELLITUS WITHOUT COMPLICATIONS Status: Chronic Priority: Medium Current Visit: Yes Qualifiers: Diabetes mellitus type: type 2 Diabetes mellitus detention insulin use: without detention use Diabetes mellitus complication status: without complication Qualified Code(s): E11.9 - Type 2 diabetes mellitus without complications (3) CHF (congestive heart failure), NYHA class II SNOMED Code(s): 380744827, 322868713 Code(s): I50.9 - HEART FAILURE, UNSPECIFIED Status: Acute Current Visit: Yes Qualifiers: Congestive heart failure type: unspecified Qualified Code(s): I50.9 - Heart failure, unspecified (4) Gastroenteritis SNOMED Code(s): 96217667 Code(s): K52.9 - NONINFECTIVE GASTROENTERITIS AND COLITIS, UNSPECIFIED Status: Acute Priority: High Current Visit: Yes - Problem List Review Problem List Initiated/Reviewed/Updated: Yes - My Orders Last 24 Hours: My Active Orders 12/11/18 10:00 Propranolol [Inderal] 40 mg PO BID 12/11/18 11:00 hydroCHLOROthiazide 25 mg PO DAILY 12/11/18 Lunch Regular Diet [DIET] - Plan Plan:: Assessment: * 78-year-old with insulin-dependent type 2 diabetes recently treated for UTI with Bactrim developed nausea and vomiting which led to acute renal injury * Bactrim has a potential nephrotoxic effect as well as the cause of nausea and vomiting. Also, Bactrim can elevate creatinine greater than the actual drop of the renal function. * Patient has a mildly elevated BNP with history of hypertension treated with an MICHAEL inhibitor, hydrochlorothiazide, and propranolol Plan * Slowly rehydrate with normal saline 100 mL an hour -> discontinue now as she is responding well * recollect UA to confirm resolution of urinary tract infection -> negative so will stop ABX * Start patient on sliding scale insulin since she will have lower by mouth intake. * Restart basal insulin when taking better by mouth. * Hold Tradjenta, lisinopril, and hydrochlorothiazide * Recheck labs in the morning * Kidneys responding well to hydration. Will encourage oral hydration now and stop IV fluids. * PO pain medications * Ambulate * Advance diet to regular * Restart propanolol and hydrochlorothiazide * Echo: Summary: 1. Normal left ventricular systolic function. 2. The calculated left ventricular ejection fraction by Jesus's MOD, from the apical four-chamber view, is approximately 77%. 3. Normal right ventricular systolic function. 4. Moderately dilated left atrium. 5. Mild mitral valve regurgitation. 6. The right ventricular systolic pressure is mild to moderately elevated. * CODE STATUS: Full code * Plan discharge for the morning.
[2018-12-12] MEDS: Insulin Lispro 100 Units/ML 3 ML Vial SUBCUT SCH (06:58)
[2018-12-12] MEDS: Propranolol 40 MG Tab PO SCH (08:23)
[2018-12-12] MEDS: Hydrochlorothiazide 25 MG Tab PO SCH (08:23)
[2018-12-12 08:25] VITALS: BP 152/62
[2018-12-12] MEDS ORDERED: Famotidine 20 MG Tab PO ONE (08:35)
[2018-12-12] MEDS ORDERED: Lisinopril 20 MG Tab PO SCH (09:00)
--- NOTE | 2018-12-12 09:11 | PCM.DCSUM1 ---
Discharge Summary - Hospital Course HPI Initial Comments: 78-year-old female admitted through the emergency room with acute renal failure. Patient presented to the emergency room after feeling hot, flushed, and nauseated. She started vomiting and then had diarrhea off and on for 3 hours starting at noon. When she developed bloody mucous in her stools she went to the emergency room at 1630. Patient states that she vomited approximately 45 times in the last couple being bilious without blood. She complains of lower abdominal cramping and diarrhea. She had multiple bowel movements up to 7 times. Patient was started on Bactrim on secondary to UTI symptoms. Patient took her last dose this morning prior to the above symptoms. She also has type 2 diabetes and his insulin independent. On she was having dysuria, but that has resolved. Patient also took fluconazole 1 tablet because of the yeast infection 3 days ago. In the emergency room she was given normal saline IV 500 mL bolus and started on 100 mL per hour. Patient was given Reglan for nausea and Dilaudid for pain. She was given 2 g Rocephin IV. Stool studies were ordered and patient was transferred to the medical surgical floor. Pertinent laboratory findings in the emergency room were: White count 10,740, bands 0%, normal coagulation panel, sodium 136, potassium 4.5, urine 40, creatinine 2.6, proBNP 602, UA with 10-20 epithelial cells. Brief History: Patient was admitted and given fluid rehydration. We held her MICHAEL inhibitor and thiazide diuretic. On day of discharge kidneys have completely recovered to baseline, and she has restarted her home meds. She has also had a significant decrease in her bowel movements. Stools were negative for Shiga toxin, C. difficile, and WBCs. They were positive for lactoferrin. Further evaluation may be warranted as an outpatient. Diagnosis: Stroke: No - Discharge Data Discharge Date: 12/12/18 Discharge Disposition: Home, Self-Care 01 Condition: Good - Discharge Diagnosis/Problem(s) (1) Acute renal injury due to hypovolemia SNOMED Code(s): 228864361 ICD Code: N17.9 - ACUTE KIDNEY FAILURE, UNSPECIFIED; E86.1 - HYPOVOLEMIA Status: Acute Priority: High Current Visit: Yes (2) Diabetes SNOMED Code(s): 52888689 ICD Code: E11.9 - TYPE 2 DIABETES MELLITUS WITHOUT COMPLICATIONS Status: Chronic Priority: Medium Current Visit: Yes Qualifiers: Diabetes mellitus type: type 2 Diabetes mellitus longterm insulin use: without longterm use Diabetes mellitus complication status: without complication Qualified Code(s): E11.9 - Type 2 diabetes mellitus without complications (3) CHF (congestive heart failure), NYHA class II SNOMED Code(s): 355351904, 105473162 ICD Code: I50.9 - HEART FAILURE, UNSPECIFIED Status: Acute Current Visit : Yes Qualifiers: Congestive heart failure type: unspecified Qualified Code(s): I50.9 - Heart failure, unspecified (4) Gastroenteritis SNOMED Code(s): 13291603 ICD Code: K52.9 - NONINFECTIVE GASTROENTERITIS AND COLITIS, UNSPECIFIED Status: Acute Priority: High Current Visit: Yes - Patient Instructions Diet: Diabetic Diet Activity: As Tolerated Driving: May Drive Today Showering/Bathing: May Shower Other/Special Instructions: Follow up with your PCP in 2 days to recheck your kidney function. - Discharge Plan *PRESCRIPTION DRUG MONITORING PROGRAM REVIEWED*: Not Applicable *COPY OF PRESCRIPTION DRUG MONITORING REPORT IN PATIENT RAM[place]: Not Applicable Home Medications: Home Meds Lisinopril/Hydrochlorothiazide [Lisinopril-Hctz 20-25 mg Tab] 1 each PO DAILY [History] Propranolol [Inderal] 40 mg PO BID 11/07/14 [History] Sertraline HCl 50 mg PO DAILY 11/07/14 [History] atorvaSTATin [Lipitor] 20 mg PO BEDTIME 11/07/14 [History] rOPINIRole [Requip] 1.5 mg PO BEDTIME 11/07/14 [History] Linagliptin [Tradjenta] 1 tab PO DAILY 11/11/15 [History] Insulin Glarg,Human.Rec.Analog [Lantus] 50 unit SUBCUT DAILY 12/09/18 [History] Oxygen Therapy Mode: Room Air Patient Handouts: Nausea and Vomiting, Adult Forms: ED Department Discharge Referrals: Carolina Rodriguez, [employer]ST [Primary Care Provider] - - Discharge Summary/Plan Comment DC Time >30 min.: Yes Discharge Summary/Plan Comment: Follow-up with PCP in 1-2 days to recheck blood pressure and renal function. Follow-up with surgery or gastroenterology to consider further evaluation of her diarrhea. Stools were negative for Shiga toxin, C. difficile, and WBCs. They were positive for lactoferrin. Further evaluation may be warranted as an outpatient. Continue home meds. - General Info Date of Service: 12/12/18 Admission Dx/Problem (Free Text: Admission Diagnosis/Problem Admission Diagnosis/Problem Dysentery Subjective Update: December 10, 2018 In to see Rosanna. she reports she feels about the same as yesterday. Repeat UA was ordered over concerns with contamination on ED sample. This returned completely normal so antibiotics were stopped. She continues to have suprapubic pain and reports she does have a history of diverticula. CRP and CBC remain WNL. Her creatinine has improved to 1.9. She received IV fluids for the better part of today and we will now stop these as she has been having good by mouth intake. She has been on a clear liquid diet and we will advance this to a soft diet. She reports her abdominal pain does wax and wane. She did have a very small bloody mucus filled bowel movement. She does report a history of hemorrhoids. She's had no nausea today. Discussed plan with Dr. Chacko and he is in agreement. We did discuss the possibility of obtaining an abdominal CT although it would likely be low yield at this point as she does not have any signs of infection or inflammation. We would like to see Ara ambulate more. We did discuss this with her and she is in agreement. suspect herniated from oxygen is based on Dilaudid she has been getting. She has been using her IS and we will switch her to oral pain medications now. December 11, 2018 Patient states that she is continuing to have episodes of diarrhea in the morning and towards the afternoon it improved to just gas. Renal function has improved, but now she has developed a headache. Earlier today blood pressure did increase 271 systolic. They were holding her Lopressor secondary to bradycardia and her lisinopril and hydrochlorothiazide secondary to renal insufficiency. December 12, 2018 Patient did well overnight. Blood pressures did increase, so her lisinopril be restarted since her renal function is back to baseline. Functional Status: Reports: Pain Controlled - Review of Systems General: Reports: No Symptoms HEENT: Reports: No Symptoms Pulmonary: Reports: No Symptoms Cardiovascular: Reports: No Symptoms Gastrointestinal: Reports: Diarrhea. Denies: Abdominal Pain - Patient Data Vitals - Most Recent: Last Vital Signs Temp 98.2 F 12/12/18 04:40 Pulse 53 L 12/12/18 08:24 Resp 16 12/12/18 08:24 BP 152/62 H 12/12/18 08:24 Pulse Ox 91 L 12/12/18 08:24 Weight - Most Recent: 182 lb 6 oz I&O - Last 24 hours: Intake & Output 12/11/18 12/12/18 12/12/18 22:59 06:59 14:59 Intake Total 1020 200 Output Total 1000 Balance 20 200 Lab Results - Last 24 hrs: Laboratory Results - last 24 hr 12/11/18 12/11/18 12/11/18 Range/Units 05:06 11:27 17:14 WBC (3.98-10.04) K/mm3 RBC (3.98-5.22) M/mm3 Hgb (11.2-15.7) gm/L Hct (34.1-44.9) % MCV (79.4-94.8) fl MCH (25.6-32.2) pg MCHC (32.2-35.5) g/dl RDW Std Deviation (36.4-46.3) fL Plt Count (182-369) K/mm3 MPV (9.4-12.3) fl Neut % (Auto) (34.0-71.1) % Lymph % (Auto) (19.3-51.7) % Rolette % (Auto) (4.7-12.5) % Eos % (Auto) (0.7-5.8) Baso % (Auto) (0.1-1.2) % Neut # (Auto) (1.56-6.13) K/mm3 Lymph # (Auto) (1.18-3.74) K/mm3 Rolette # (Auto) (0.24-0.36) K/mm3 Eos # (Auto) (0.04-0.36) K/mm3 Baso # (Auto) (0.01-0.08) K/mm3 Sodium (136-145) mEq/L Potassium (3.5-5.1) mEq/L Chloride (98-107) mEq/L Carbon Dioxide (21-32) mEq/L Anion Gap (5-15) BUN (7-18) mg/dL Creatinine (0.55-1.02) mg/dL Est Cr Clr Drug Dosing mL/min Estimated GFR (MDRD) (>60) mL/min BUN/Creatinine Ratio (14-18) Glucose (83-115) mg/dL POC Glucose 121 H 106 (83-110) mg/dL Calcium (8.5-10.1) mg/dL Magnesium (1.8-2.4) mg/dl Total Bilirubin (0.2-1.0) mg/dL AST (15-37) U/L ALT (14-59) U/L Alkaline Phosphatase (46-116) U/L Lactate Dehydrogenase 205 (81-234) U/L C-Reactive Protein (<1.0) mg/dL Total Protein (6.4-8.2) g/dl Albumin (3.4-5.0) g/dl Globulin gm/dL Albumin/Globulin Ratio (1-2) 12/11/18 12/12/18 12/12/18 Range/Units 20:43 04:30 04:30 WBC 5.94 (3.98-10.04) K/mm3 RBC 3.79 L (3.98-5.22) M/mm3 Hgb 11.5 (11.2-15.7) gm/L Hct 35.2 (34.1-44.9) % MCV 92.9 (79.4-94.8) fl MCH 30.3 (25.6-32.2) pg MCHC 32.7 (32.2-35.5) g/dl RDW Std Deviation 44.0 (36.4-46.3) fL Plt Count 235 (182-369) K/mm3 MPV 10.1 (9.4-12.3) fl Neut % (Auto) 57.9 (34.0-71.1) % Lymph % (Auto) 29.1 (19.3-51.7) % Rolette % (Auto) 8.1 (4.7-12.5) % Eos % (Auto) 3.7 (0.7-5.8) Baso % (Auto) 0.7 (0.1-1.2) % Neut # (Auto) 3.44 (1.56-6.13) K/mm3 Lymph # (Auto) 1.73 (1.18-3.74) K/mm3 Rolette # (Auto) 0.48 H (0.24-0.36) K/mm3 Eos # (Auto) 0.22 (0.04-0.36) K/mm3 Baso # (Auto) 0.04 (0.01-0.08) K/mm3 Sodium 141 (136-145) mEq/L Potassium 3.9 (3.5-5.1) mEq/L Chloride 105 (98-107) mEq/L Carbon Dioxide 26 (21-32) mEq/L Anion Gap 13.9 (5-15) BUN 15 (7-18) mg/dL Creatinine 1.2 H (0.55-1.02) mg/dL Est Cr Clr Drug Dosing 31.54 mL/min Estimated GFR (MDRD) 44 (>60) mL/min BUN/Creatinine Ratio 12.5 L (14-18) Glucose 107 (83-115) mg/dL POC Glucose 148 H (83-110) mg/dL Calcium 9.5 (8.5-10.1) mg/dL Magnesium 1.9 (1.8-2.4) mg/dl Total Bilirubin 0.5 (0.2-1.0) mg/dL AST 34 (15-37) U/L ALT 56 (14-59) U/L Alkaline Phosphatase 121 H (46-116) U/L Lactate Dehydrogenase (81-234) U/L C-Reactive Protein 1.8 H* (<1.0) mg/dL Total Protein 7.1 (6.4-8.2) g/dl Albumin 3.3 L (3.4-5.0) g/dl Globulin 3.8 gm/dL Albumin/Globulin Ratio 0.9 L (1-2) 12/12/18 Range/Units 06:33 WBC (3.98-10.04) K/mm3 RBC (3.98-5.22) M/mm3 Hgb (11.2-15.7) gm/L Hct (34.1-44.9) % MCV (79.4-94.8) fl MCH (25.6-32.2) pg MCHC (32.2-35.5) g/dl RDW Std Deviation (36.4-46.3) fL Plt Count (182-369) K/mm3 MPV (9.4-12.3) fl Neut % (Auto) (34.0-71.1) % Lymph % (Auto) (19.3-51.7) % Rolette % (Auto) (4.7-12.5) % Eos % (Auto) (0.7-5.8) Baso % (Auto) (0.1-1.2) % Neut # (Auto) (1.56-6.13) K/mm3 Lymph # (Auto) (1.18-3.74) K/mm3 Rolette # (Auto) (0.24-0.36) K/mm3 Eos # (Auto) (0.04-0.36) K/mm3 Baso # (Auto) (0.01-0.08) K/mm3 Sodium (136-145) mEq/L Potassium (3.5-5.1) mEq/L Chloride (98-107) mEq/L Carbon Dioxide (21-32) mEq/L Anion Gap (5-15) BUN (7-18) mg/dL Creatinine (0.55-1.02) mg/dL Est Cr Clr Drug Dosing mL/min Estimated GFR (MDRD) (>60) mL/min BUN/Creatinine Ratio (14-18) Glucose (83-115) mg/dL POC Glucose 124 H (83-110) mg/dL Calcium (8.5-10.1) mg/dL Magnesium (1.8-2.4) mg/dl Total Bilirubin (0.2-1.0) mg/dL AST (15-37) U/L ALT (14-59) U/L Alkaline Phosphatase (46-116) U/L Lactate Dehydrogenase (81-234) U/L C-Reactive Protein (<1.0) mg/dL Total Protein (6.4-8.2) g/dl Albumin (3.4-5.0) g/dl Globulin gm/dL Albumin/Globulin Ratio (1-2) SERG Results - Last 24 hrs: Microbiology 12/10/18 18:55 Stool Culture - Preliminary Stool / Feces Shiga Toxin I - Final NEGATIVE FOR SHIGA TOXIN 1 REFERENCE RANGE: NEGATIVE Shiga Toxin II - Final NEGATIVE FOR SHIGA TOXIN 2 REFERENCE RANGE: NEGATIVE 12/10/18 18:55 Stool Lactoferrin - Final Stool / Feces Med Orders - Current: Current Medications Hydrocodone Bitart/Acetaminophen ([place] 325-5 Mg) 1 tab PO Q4H PRN PRN Reason: Pain Last Admin: 12/11/18 07:52 Dose: 1 tab Hydrochlorothiazide (Hydrochlorothiazide) 25 mg PO DAILY [facility] Last Admin: 12/12/18 08:23 Dose: 25 mg Hydromorphone HCl (Dilaudid) 0.5 mg IVPUSH Q2H PRN PRN Reason: Pain (severe 7-10) Last Admin: 12/10/18 09:40 Dose: 0.5 mg Insulin Human Lispro (Humalog) 0 unit SUBCUT QIDACANDBED [facility]; Protocol Last Admin: 12/12/18 06:58 Dose: Not Given Lisinopril (Prinivil) 20 mg PO DAILY [facility] Last Admin: 12/12/18 08:23 Dose: 20 mg Ondansetron HCl (Zofran) 4 mg IV Q4H PRN PRN Reason: Nausea/Vomiting Propranolol HCl (Inderal) 40 mg PO BID [facility] Last Admin: 12/12/18 08:23 Dose: 40 mg Discontinued Medications Diphenhydramine HCl (Benadryl) 25 mg IVPUSH ONETIME ONE Stop: 12/09/18 19:33 Last Admin: 12/09/18 23:50 Dose: Not Given Famotidine (Pepcid) 20 mg PO ONETIME ONE Stop: 12/12/18 08:36 Last Admin: 12/12/18 08:43 Dose: 20 mg Hydromorphone HCl (Dilaudid) 0.5 mg IVPUSH ONETIME ONE Stop: 12/09/18 17:10 Last Admin: 12/09/18 17:14 Dose: 0.5 mg Sodium Chloride (Normal Saline) 1,000 mls @ 500 mls/hr IV ASDIRECTED [facility] Last Admin: 12/09/18 17:13 Dose: 500 mls/hr Ceftriaxone Sodium 2 gm/ (Sodium Chloride) 100 mls @ 200 mls/hr IV ONETIME ONE Stop: 12/09/18 19:12 Last Admin: 12/09/18 18:48 Dose: 200 mls/hr Sodium Chloride (Normal Saline) 1,000 mls @ 100 mls/hr IV ASDIRECTED [facility] Last Admin: 12/10/18 05:33 Dose: 100 mls/hr Metoclopramide HCl (Reglan) 7.5 mg IVPUSH ONETIME ONE Stop: 12/09/18 17:08 Last Admin: 12/09/18 17:14 Dose: 7.5 mg Propranolol HCl (Inderal) 40 mg PO BID JACI Last Admin: 12/10/18 10:14 Dose: Not Given - Exam General: Reports: Alert, Oriented HEENT: Reports: Pupils Equal, Pupils Reactive Neck: Reports: Supple Lungs: Reports: Clear to Auscultation, Normal Respiratory Effort Cardiovascular: Reports: Regular Rate, Regular Rhythm GI/Abdominal Exam: Normal Bowel Sounds, Soft, Non-Tender, No Organomegaly, No Distention Extremities: Normal Inspection, No Pedal Edema Skin: Reports: Warm, Dry, Intact Neurological: Reports: No New Focal Deficit Psy/Mental Status: Reports: Alert, Normal Affect, Normal Mood
== END 2018-12-12 10:00 | disposition home or self-care (01) | DRG 683 ==
LOC: JD.ED 16:38 → JD.MS 19:08
PROVIDERS: ADMIT Family Medicine; ATTEND Family Medicine
DX: N17.9 Acute kidney failure, unspecified (principal); A09 Infectious gastroenteritis and colitis, unspecified; I13.0 Hypertensive heart and chronic kidney disease with heart failure and stage 1 through stage 4 chronic kidney disease, or unspecified chronic kidney disease; K52.9 Noninfective gastroenteritis and colitis, unspecified; I50.9 Heart failure, unspecified; E11.40 Type 2 diabetes mellitus with diabetic neuropathy, unspecified; M19.91 Primary osteoarthritis, unspecified site; N18.4 Chronic kidney disease, stage 4 (severe); E66.9 Obesity, unspecified; L40.9 Psoriasis, unspecified; E11.22 Type 2 diabetes mellitus with diabetic chronic kidney disease; E86.1 Hypovolemia; E11.42 Type 2 diabetes mellitus with diabetic polyneuropathy; F32.9 Major depressive disorder, single episode, unspecified; Z87.891 Personal history of nicotine dependence; E11.21 Type 2 diabetes mellitus with diabetic nephropathy; E78.00 Pure hypercholesterolemia, unspecified; R32 Unspecified urinary incontinence; R11.2 Nausea with vomiting, unspecified; Z68.33 Body mass index [BMI] 33.0-33.9, adult; R10.30 Lower abdominal pain, unspecified; K92.1 Melena; R19.7 Diarrhea, unspecified; R53.81 Other malaise; R53.1 Weakness; R11.14 Bilious vomiting; Z91.040 Latex allergy status; Z79.4 Long term (current) use of insulin; Z91.048 Other nonmedicinal substance allergy status; Z79.899 Other long term (current) drug therapy; Z90.49 Acquired absence of other specified parts of digestive tract; Z98.891 History of uterine scar from previous surgery; R53.83 Other fatigue; Z98.49 Cataract extraction status, unspecified eye
CPT/HCPCS: 36415; 80053; 81001; 82962; 83880; 85007; 85027; 85610; 85730; 86140; 96361; 96365; 96375; 99285; J0696; J1170; J2765; J7030; J7040; 71046; 71046-26; 74019; 74019-26; 80061; 83036; 83605; 83615; 83630; 83690; 83735; 85025; 87046; 87427; 87493; 89055; 93306; 94761; A9270-GY; J1815-GY

== ENCOUNTER 2019-08-24 12:04 | Emergency (ER) | payer MEDICARE, OTHER ==
[2019-08-24] MEDS ORDERED: Sodium Chloride 0.9% 10 ML Syringe FLUSH PRN (12:34)
[2019-08-24] MEDS ORDERED: Ondansetron 4 MG/2 ML SDV IVPUSH ONE (12:36)
[2019-08-24] MEDS ORDERED: HYDROmorphone 0.5 MG/0.5 ML Syringe IVPUSH ONE (12:36)
--- NOTE | 2019-08-24 12:47 | EDM.PDOC ---
ED HPI GENERAL MEDICAL PROBLEM - General Chief Complaint: Abdominal Pain Stated Complaint: R SIDE ABD AND BACK PAIN Time Seen by Provider: 08/24/19 12:44 Source of Information: Reports: Patient History Limitations: Reports: No Limitations - History of Present Illness INITIAL COMMENTS - FREE TEXT/NARRATIVE: Rosanna is a 79 year old female who presents to the ER today for right upper abdominal pain extending into the right side of her back. Reports gradual onset about 4 days ago. Movement or light touch worsens the pain. No pain with deep breathing. States the pain is a steady pinching type pain but with movement becomes a sharp pain. She has been dealing with muscle pain and spasms recently and feels this is similar. No fevers, chills, nausea, vomiting, diarrhea, abdominal pain, dysuria or rashes. Past surgical history includes a cholecystectomy. 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 Right Abdomen Pain Score (Numeric/FACES): 7 Right Back Pain Score (Numeric/FACES): 7 - Related Data Allergies Allergy/AdvReac Type Severity Reaction Status Date / Time latex Allergy Anaphylactic Verified 01/28/19 15:13 Shock fresh ink Allergy Anaphylactic Uncoded 01/28/19 15:13 Shock oil based products Allergy Anaphylactic Uncoded 01/28/19 15:13 Shock Home Meds: Home Meds Lisinopril/Hydrochlorothiazide [Lisinopril-Hctz 20-25 mg Tab] 1 each PO DAILY [History] Propranolol [Inderal] 40 mg PO BID 11/07/14 [History] Sertraline HCl 50 mg PO DAILY 11/07/14 [History] atorvaSTATin [Lipitor] 20 mg PO BEDTIME 11/07/14 [History] Linagliptin [Tradjenta] 5 mg PO DAILY 11/11/15 [History] Insulin Glarg,Human.Rec.Analog [Lantus] 50 unit SUBCUT DAILY 12/09/18 [History] Aspirin [Halfprin] 81 mg PO DAILY 01/28/19 [History] rOPINIRole [Requip] 1 mg PO DAILY 01/28/19 [History] traMADol HCl [Tramadol HCl] 50 mg PO Q6H PRN #15 tablet 08/24/19 [Rx] Past Medical History HEENT History: Reports: Otitis Media, Other (See Below) Other HEENT History: actinic otitis externa R ear, impacted cerumen, has upper denture Cardiovascular History: Reports: Heart Failure, High Cholesterol, Hypertension Respiratory History: Reports: None Gastrointestinal History: Reports: Chronic Diarrhea, Colon Polyp, GERD, Hemorrhoids, Other (See Below) Other Gastrointestinal History: tubular adenoma, epigastric pain Genitourinary History: Reports: Urinary Incontinence, UTI, Recurrent, Other ( See Below) Other Genitourinary History: CKD III [employer] History: Reports: Musculoskeletal History: Reports: Osteoarthritis Other Musculoskeletal History: restless legs, torn meniscus Neurological History: Reports: Neuropathy, Peripheral Psychiatric History: Reports: Depression Endocrine/Metabolic History: Reports: Diabetes, Type I, Obesity/BMI 30+ Other Endocrine/Metabolic History: nephropathy Hematologic History: Reports: None Immunologic History: Reports: None Oncologic (Cancer) History: Reports: None Dermatologic History: Reports: Psoriasis, Other (See Below) Other Dermatologic History: dermatitis, tinea pedis - Past Surgical History Head Surgeries/Procedures: Reports: None HEENT Surgical History: Reports: Cataract Surgery Cardiovascular Surgical History: Reports: None Respiratory Surgical History: Reports: None GI Surgical History: Reports: Cholecystectomy, Colonoscopy Female Surgical History: Reports: Section, Tubal Ligation Endocrine Surgical History: Reports: None Other Endocrine Surgeries/Procedures: has appointment on 11/10 for a thyroidectomy consult with Dr. Reed Musculoskeletal Surgical History: Reports: None Oncologic Surgical History: Reports: None Dermatological Surgical History: Reports: None Social & Family History - Family History Family Medical History: Noncontributory - Tobacco Use Smoking Status *Q: Former Smoker Used Tobacco, but Quit: Yes Month/Year Tobacco Last Used: 8 - Caffeine Use Caffeine Use: Reports: Coffee, Soda, Tea Other Caffeine Use: 2 cups a day - Recreational Drug Use Recreational Drug Use: No - Living Situation & Occupation Living situation: Reports: , with Spouse Occupation: Employed ED ROS GENERAL - Review of Systems Review Of Systems: See Below Constitutional: Denies: Fever, Chills Respiratory: Denies: Pleuritic Chest Pain, Cough GI/Abdominal: Reports: Abdominal Pain (RUQ). Denies: Nausea, Vomiting Skin: Denies: Rash ED EXAM, GENERAL - Physical Exam Exam: See Below Exam Limited By: No Limitations General Appearance: Alert, WD/WN, No Apparent Distress Throat/Mouth: Normal Inspection, Normal Voice, No Airway Compromise Respiratory/Chest: No Respiratory Distress, Lungs Clear, Normal Breath Sounds Cardiovascular: Normal Peripheral Pulses, Regular Rate, Rhythm, No Murmur GI/Abdominal: Normal Bowel Sounds, Soft, Non-Tender Neurological: Alert, Oriented, Normal Cognition Psychiatric: Normal Affect, Normal Mood Skin Exam: Warm, Dry, Normal Color. No: Zoster-Like Rash Course - Vital Signs Last Recorded V/S: Last Vital Signs Temp 96.5 F L 08/24/19 12:25 Pulse 48 L 08/24/19 15:50 Resp 20 08/24/19 15:50 BP 109/47 L 08/24/19 15:52 Pulse Ox 92 L 08/24/19 15:50 - Orders/Labs/Meds Orders: Active Orders 24 hr Category Date Time Status Peripheral IV Care [RC] . DIRECTED Care 08/24/19 12:36 Active Peripheral IV Insertion Adult [OM.PC] Routine Oth 08/24/19 12:34 Ordered Labs: Laboratory Tests 08/24/19 08/24/19 08/24/19 Range/Units 12:50 12:50 15:05 WBC 6.13 (3.98-10.04) K/mm3 RBC 4.09 (3.98-5.22) M/mm3 Hgb 12.4 (11.2-15.7) gm/dl Hct 38.6 (34.1-44.9) % MCV 94.4 (79.4-94.8) fl MCH 30.3 (25.6-32.2) pg MCHC 32.1 L (32.2-35.5) g/dl RDW Std Deviation 43.6 (36.4-46.3) fL Plt Count 273 (182-369) K/mm3 MPV 10.3 (9.4-12.3) fl Neut % (Auto) 64.9 (34.0-71.1) % Lymph % (Auto) 22.3 (19.3-51.7) % [place] % (Auto) 8.2 (4.7-12.5) % Eos % (Auto) 3.8 (0.7-5.8) Baso % (Auto) 0.3 (0.1-1.2) % Neut # (Auto) 3.98 (1.56-6.13) K/mm3 Lymph # (Auto) 1.37 (1.18-3.74) K/mm3 [place] # (Auto) 0.50 H (0.24-0.36) K/mm3 Eos # (Auto) 0.23 (0.04-0.36) K/mm3 Baso # (Auto) 0.02 (0.01-0.08) K/mm3 Sodium 139 (136-145) mEq/L Potassium 4.0 (3.5-5.1) mEq/L Chloride 100 (98-107) mEq/L Carbon Dioxide 26 (21-32) mEq/L Anion Gap 17.0 H (5-15) BUN 23 H (7-18) mg/dL Creatinine 1.4 H (0.55-1.02) mg/dL Est Cr Clr Drug Dosing 26.62 mL/min Estimated GFR (MDRD) 36 (>60) mL/min BUN/Creatinine Ratio 16.4 (14-18) Glucose 255 H (83-115) mg/dL Calcium 9.3 (8.5-10.1) mg/dL Total Bilirubin 0.6 (0.2-1.0) mg/dL AST 17 (15-37) U/L ALT 29 (14-59) U/L Alkaline Phosphatase 111 (46-116) U/L C-Reactive Protein 0.3 (<1.0) mg/dL Total Protein 7.6 (6.4-8.2) g/dl Albumin 3.7 (3.4-5.0) g/dl Globulin 3.9 gm/dL Albumin/Globulin Ratio 1.0 (1-2) Lipase 261 (73-393) U/L Urine Color Yellow (Yellow) Urine Appearance Clear (Clear) Urine pH 5.5 (5.0-8.0) Ur Specific [place] > or = 1.030 (1.005-1.030) Urine Protein 2+ H (Negative) Urine Glucose (UA) Negative (Negative) Urine Ketones Negative (Negative) Urine Occult Blood Negative (Negative) Urine Nitrite Negative (Negative) Urine Bilirubin Negative (Negative) Urine Urobilinogen 0.2 (0.2-1.0) Ur Leukocyte Esterase Negative (Negative) Urine RBC 0-5 (0-5) /hpf Urine WBC 5-10 H (0-5) /hpf Ur Squamous Epith Cells 20-30 H (0-5) /hpf Urine Bacteria Rare (FEW) /hpf Urine Mucus Few (FEW) /hpf Meds: Medications Discontinued Medications Generic Name Dose Route Start Last Admin Trade Name Griselda PRN Reason Stop Dose Admin Hydromorphone HCl 0.5 mg 08/24/19 12:36 08/24/19 13:08 Dilaudid IVPUSH 08/24/19 12:37 0.5 mg ONETIME ONE Administration Sodium Chloride 500 mls @ 500 mls/hr 08/24/19 14:01 08/24/19 14:13 Normal Saline IV 08/24/19 15:00 500 mls/hr .BOLUS ONE Administration Ketorolac Tromethamine 15 mg 08/24/19 14:01 08/24/19 14:13 Toradol IVPUSH 08/24/19 14:02 15 mg ONETIME ONE Administration Ondansetron HCl 4 mg 08/24/19 12:36 08/24/19 13:06 Zofran IVPUSH 08/24/19 12:37 4 mg ONETIME ONE Administration Sodium Chloride 10 ml 08/24/19 12:34 08/24/19 13:10 Saline Flush FLUSH 10 ml ASDIRECTED PRN Administration Keep Vein Open - Radiology Interpretation Free Text/Narrative:: Chest 2 view reviewed by myself and Dr. Rosenberg shows no acute intrathoracic process 2 view of the abdomen shows no acute intraabdominal process. Few scattered air fluid lines. - Re-Assessments/Exams Free Text/Narrative Re-Assessment/Exam: 08/24/19 14:08 checked on the patient. she is doing better. I reviewed her labs and imaging with her. Awaiting UA. Appears to be musculoskeletal in origin. Will give a small amount of toradol for additional relief. Patient questions if her recent increase in statin medication could be causing the pain. She has had myalgias with statins in the past. 08/24/19 15:35 Checked on patient. Feeling greatly improved. Pain with movement. This seems to be muscularskeletal in origin. I will have her follow-up with her PCP this week she may need additional imaging such as an MRI to further evaluate. she questions if this is the statin which I do not think it is but she may decrease her statin dosage. Discharge instructions as documented. Departure - Departure Time of Disposition: 15:36 Disposition: Home, Self-Care 01 Condition: Good Clinical Impression: Back pain - Discharge Information *PRESCRIPTION DRUG MONITORING PROGRAM REVIEWED*: No *COPY OF PRESCRIPTION DRUG MONITORING REPORT IN PATIENT RAMONA: No Prescriptions: traMADol HCl [Tramadol HCl] 50 mg PO Q6H PRN #15 tablet PRN Reason: Pain Instructions: Acute Back Pain, Adult, Back Exercises, [id number] Referrals: Carolina Rodriguez, E[employer] MECHANIC [Primary Care Provider] - Forms: ED Department Discharge Additional Instructions: You were given medication in the ER that can affect your ability to drive and operate machinery. Do not drive or operate machinery within 10 hors of taking prescription narcotic pain medication. Use moist heat to the area for additional pain relief. Tramadol 1 tab PO every 6 hours prn pain. Tramadol is habit forming, take as few of these as needed to control you pain. Do not drive or operate machinery within 10 hours of taking tramdol. follow-up with your PCP this week for a recheck of your symptoms. Activity as tolerated. Please return to the ER should your symptoms change or worsen. Sepsis Event Note - Evaluation Sepsis Screening Result: No Definite Risk - Focused Exam Vital Signs: Vital Signs Temp Pulse Resp BP Pulse Ox 08/24/19 15:52 109/47 L 08/24/19 15:50 48 L 20 114/41 L 92 L 08/24/19 12:25 96.5 F L 50 L 20 183/53 H 92 L Date Exam was Performed: 08/24/19 Time Exam was Performed: 16:24 - My Orders Last 24 Hours: My Active Orders 08/24/19 12:34 Peripheral IV Insertion Adult [OM.PC] Routine 08/24/19 12:36 Peripheral IV Care [RC] . DIRECTED - Assessment/Plan Last 24 Hours: My Active Orders 08/24/19 12:34 Peripheral IV Insertion Adult [OM.PC] Routine 08/24/19 12:36 Peripheral IV Care [RC] . DIRECTED
[2019-08-24] MEDS ORDERED: Sodium Chloride 0.9% 500 ML IV ONE (14:01)
[2019-08-24] MEDS ORDERED: Ketorolac 15 MG/ML SDV IVPUSH ONE (14:01)
--- NOTE | 2019-08-24 14:12 | CR ---
Abdomen: Supine and upright views of the abdomen were obtained. Comparison: Previous abdominal x-ray of 12/10/18. Scattered gas within small bowel and colon is seen which appears within normal limits. No free air is identified. Bony structures appear within normal limits for the patient's age. Small calcifications are seen within the lower left pelvis most likely representing phleboliths. Impression: 1. Findings as noted above. 2. No definite acute abnormality is appreciated on 2 view abdominal x-ray. Diagnostic code #2 This report was dictated in [place] Standard Time
--- NOTE | 2019-08-24 14:12 | CR ---
Chest: 2 views of the chest were obtained. Comparison: Prior chest x-ray of 12/10/18. Heart is enlarged. Upper mediastinum is normal. Lobulated right hemidiaphragm is seen. Minimal areas of increased density within the right lung base believed to represent scarring. No acute parenchymal change is seen. Diaphragms are slightly flattened on the lateral view raising the possibility of emphysematous change. Degenerative endplate spurring is noted within the spine. Impression: 1. Multiple findings as noted above. 2. Nothing acute is definitely appreciated. Diagnostic code #2 This report was dictated in [place] Standard Time
[2019-08-24 15:59] VITALS: BP 109/47; PULSE 48
== END 2019-08-24 15:56 | disposition home or self-care (01) ==
LOC: JD.ED 12:04
DX: I13.0 Hypertensive heart and chronic kidney disease with heart failure and stage 1 through stage 4 chronic kidney disease, or unspecified chronic kidney disease (principal); I50.9 Heart failure, unspecified; N18.3 Chronic kidney disease, stage 3 (moderate); E10.9 Type 1 diabetes mellitus without complications; M54.9 Dorsalgia, unspecified; Z91.040 Latex allergy status; Z91.018 Allergy to other foods; Z88.8 Allergy status to other drugs, medicaments and biological substances; Z91.048 Other nonmedicinal substance allergy status; Z79.899 Other long term (current) drug therapy; Z79.82 Long term (current) use of aspirin; Z79.4 Long term (current) use of insulin; Z87.891 Personal history of nicotine dependence
CPT/HCPCS: 36415; 71046; 74019; 80053; 81001; 83690; 85025; 86140; 96361; 96374; 96375; 99284; J1170; J1885; J2405; J7030; 99283

== ENCOUNTER 2019-11-14 19:44 | Emergency (ER) | payer MEDICARE, OTHER ==
--- NOTE | 2019-11-14 20:03 | EDM.PDOC ---
ED HPI GENERAL MEDICAL PROBLEM - General Chief Complaint: Cardiovascular Problem Stated Complaint: POSSIBLE BLOOD CLOT Time Seen by Provider: 11/14/19 19:57 Source of Information: Reports: Patient History Limitations: Reports: No Limitations - History of Present Illness INITIAL COMMENTS - FREE TEXT/NARRATIVE: 79 year old female presents to the ED with swelling and tight feeling Rt lower leg. No known injuries. No recent travel history . Has been actively working outside planting her garden. No previous hx of DVT. No shortness of breath or pleuritic chest pain. Seen over at the [place] [facility]in [facility] with her leg and her d-dimer came back slightly elevated at 2.2. He denies any recent changes in medications. She does take a baby aspirin every morning. Known trauma to the right lower extremity and it does not really hurt her. She states it feels rather numb and tingly at times. Is not walking with a limp. Onset: Gradual Onset Date: 11/13/19 (Noticed it last evening slightly worse today) Duration: Hour(s):, Getting Worse Location: Reports: Upper Extremity, Right Quality: Reports: Other (More numb and tingly and aware of fullness of the leg but it does not really hurt.) Severity: Moderate Improves with: Reports: None Worsens with: Reports: None Context: Reports: Other (Spontaneous occurrence). Denies: Activity, Exercise, Lifting, Sick Contact, Trauma Associated Symptoms: Reports: No Other Symptoms, Other (Dyspnea no hemoptysis). Denies: Chest Pain, Cough, cough w sputum, Fever/Chills, Headaches, Loss of Appetite, Malaise, Nausea/Vomiting, Rash, Seizure, Shortness of Breath, Syncope , Weakness Treatments MEDICAL I D SALES: Reports: Other (see below) Other Treatments MEDICAL I D SALES: walkl in cliinic - Related Data Allergies Allergy/AdvReac Type Severity Reaction Status Date / Time latex Allergy Severe Anaphylactic Verified 11/14/19 19:54 Shock fresh ink Allergy Severe Anaphylactic Uncoded 11/14/19 19:54 Shock oil based products Allergy Severe Anaphylactic Uncoded 11/14/19 19:54 Shock Home Meds: Home Meds Lisinopril/Hydrochlorothiazide [Lisinopril-Hctz 20-25 mg Tab] 20 - 25 mg PO DAILY 11/07/14 [History] Propranolol [Inderal] 40 mg PO BID 11/07/14 [History] Sertraline HCl 50 mg PO DAILY 11/07/14 [History] atorvaSTATin [Lipitor] 20 mg PO BEDTIME 11/07/14 [History] Linagliptin [Tradjenta] 5 mg PO DAILY 11/11/15 [History] Insulin Glarg,Human.Rec.Analog [Lantus] 50 unit SUBCUT DAILY 12/09/18 [History] Aspirin [Halfprin] 81 mg PO DAILY 01/28/19 [History] rOPINIRole [Requip] 1 mg PO DAILY 01/28/19 [History] Furosemide [Lasix] 40 mg PO ASDIRECTED PRN #30 tablet 11/14/19 [Rx] Insulin Regular, Human [HumuLIN R] 4 units INJECT 1700 11/14/19 [History] Past Medical History HEENT History: Reports: Otitis Media, Other (See Below) Other HEENT History: actinic otitis externa R ear, impacted cerumen, has upper denture Cardiovascular History: Reports: Heart Failure, High Cholesterol, Hypertension Respiratory History: Reports: None Gastrointestinal History: Reports: Chronic Diarrhea, Colon Polyp, GERD, Hemorrhoids, Other (See Below) Other Gastrointestinal History: tubular adenoma, epigastric pain Genitourinary History: Reports: Urinary Incontinence, UTI, Recurrent, Other ( See Below) Other Genitourinary History: CKD III 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: Musculoskeletal History: Reports: Osteoarthritis Other Musculoskeletal History: restless legs, torn meniscus Neurological History: Reports: Neuropathy, Peripheral Psychiatric History: Reports: Depression Endocrine/Metabolic History: Reports: Diabetes, Type I, Obesity/BMI 30+ Other Endocrine/Metabolic History: nephropathy Hematologic History: Reports: None Immunologic History: Reports: None Oncologic (Cancer) History: Reports: None Dermatologic History: Reports: Psoriasis, Other (See Below) Other Dermatologic History: dermatitis, tinea pedis - Past Surgical History Head Surgeries/Procedures: Reports: None HEENT Surgical History: Reports: Cataract Surgery Cardiovascular Surgical History: Reports: None Respiratory Surgical History: Reports: None GI Surgical History: Reports: Cholecystectomy, Colonoscopy Female Surgical History: Reports: Section, Tubal Ligation Endocrine Surgical History: Reports: None Other Endocrine Surgeries/Procedures: has appointment on 11/10 for a thyroidectomy consult with Dr. Reed Musculoskeletal Surgical History: Reports: None Oncologic Surgical History: Reports: None Dermatological Surgical History: Reports: None Social & Family History - Family History Family Medical History: Noncontributory - Caffeine Use Caffeine Use: Reports: Coffee, Soda, Tea Other Caffeine Use: 2 cups a day - Living Situation & Occupation Living situation: Reports: , with Spouse Occupation: Employed ED ROS GENERAL - Review of Systems Review Of Systems: See Below Constitutional: Reports: Fatigue. Denies: Fever, Chills, Malaise, Weakness, Decreased Appetite (Chronically), Weight Loss HEENT: Reports: Glasses Respiratory: Reports: Shortness of Breath. Denies: Wheezing, Pleuritic Chest Pain (Generally), Cough, Sputum, Hemoptysis Cardiovascular: Reports: Blood Pressure Problem, Dyspnea on Exertion (Always has a little edema in both lower extremities.), Edema. Denies: Claudication, Lightheadedness, Orthopnea, Palpitations Endocrine: Reports: Fatigue (Visually) GI/Abdominal: Reports: Constipation (No constipation.). Denies: Nausea, Vomiting : Reports: Frequency, Incontinence (And stress components) Musculoskeletal: Reports: Back Pain, Joint Pain (Knees hips neck at times) Skin: Reports: No Symptoms Neurological: Reports: No Symptoms Psychiatric: Reports: No Symptoms Hematologic/Lymphatic: Reports: No Symptoms Immunologic: Reports: No Symptoms ED EXAM, GENERAL - Physical Exam Exam: See Below Exam Limited By: No Limitations General Appearance: Alert, WD/WN, No Apparent Distress Eye Exam: Bilateral Eye: Normal Inspection (No blepharal pallor. No scleral icterus.) Neck: Normal Inspection, Supple, Non-Tender, Full Range of Motion. No: Carotid Bruit, Lymphadenopathy (L), Lymphadenopathy (R) Respiratory/Chest: No Respiratory Distress, Lungs Clear, Normal Breath Sounds, No Accessory Muscle Use Cardiovascular: Normal Peripheral Pulses, Regular Rate, Rhythm, No Gallop, No Murmur, No Rub. No: No Edema Peripheral Pulses: 2+: Carotid (L), Carotid (R), Posterior Tibial (L), Posterior Tibial (R), Dorsalis Pedis (L), Dorsalis Pedis (R) GI/Abdominal: Normal Bowel Sounds, Soft, Non-Tender, No Organomegaly, No Abnormal Bruit, No Mass, Pelvis Stable, Other (Mildly obese) Extremities: Other (Emanation of her lower extremities does show more tightness of the right lower extremity in comparison to the left. Both legs have 2+ pitting edema. The right medial leg is a little more tender to palpation for edema. There is a small Koch's cyst on the left popliteal fossa.) Neurological: Alert, Oriented, CN II-XII Intact, Normal Cognition Psychiatric: Normal Affect, Normal Mood Skin Exam: Warm, Dry, Intact, Normal Color, No Rash Course - Vital Signs Last Recorded V/S: Last Vital Signs Temp 36.8 C 11/14/19 20:05 Pulse 64 11/14/19 20:05 Resp 20 11/14/19 20:05 BP 174/59 H 11/14/19 20:05 Pulse Ox 91 L 11/14/19 20:05 - Orders/Labs/Meds Labs: Laboratory Tests 11/14/19 11/14/19 11/14/19 Range/Units 20:17 20:17 20:17 WBC 7.66 (3.98-10.04) K/mm3 RBC 3.95 L (3.98-5.22) M/mm3 Hgb 11.8 (11.2-15.7) gm/dl Hct 36.6 (34.1-44.9) % MCV 92.7 (79.4-94.8) fl MCH 29.9 (25.6-32.2) pg MCHC 32.2 (32.2-35.5) g/dl RDW Std Deviation 45.3 (36.4-46.3) fL Plt Count 246 (182-369) K/mm3 MPV 9.8 (9.4-12.3) fl Neut % (Auto) 63.6 (34.0-71.1) % Lymph % (Auto) 24.0 (19.3-51.7) % [place] % (Auto) 8.7 (4.7-12.5) % Eos % (Auto) 3.1 (0.7-5.8) Baso % (Auto) 0.3 (0.1-1.2) % Neut # (Auto) 4.87 (1.56-6.13) K/mm3 Lymph # (Auto) 1.84 (1.18-3.74) K/mm3 [place] # (Auto) 0.67 H (0.24-0.36) K/mm3 Eos # (Auto) 0.24 (0.04-0.36) K/mm3 Baso # (Auto) 0.02 (0.01-0.08) K/mm3 Sodium 140 (136-145) mEq/L Potassium 3.8 (3.5-5.1) mEq/L Chloride 104 (98-107) mEq/L Carbon Dioxide 27 (21-32) mEq/L Anion Gap 12.8 (5-15) BUN 30 H (7-18) mg/dL Creatinine 1.6 H (0.55-1.02) mg/dL Est Cr Clr Drug Dosing 23.29 mL/min Estimated GFR (MDRD) 31 (>60) mL/min BUN/Creatinine Ratio 18.8 H (14-18) Glucose 239 H (83-115) mg/dL Calcium 9.1 (8.5-10.1) mg/dL Magnesium 1.7 L (1.8-2.4) mg/dl Total Bilirubin 0.4 (0.2-1.0) mg/dL AST 18 (15-37) U/L ALT 26 (14-59) U/L Alkaline Phosphatase 100 (46-116) U/L Troponin I 0.020 (0.00-0.056) ng/mL NT-Pro-B Natriuret Pep (0-450) pg/mL Total Protein 7.2 (6.4-8.2) g/dl Albumin 3.5 (3.4-5.0) g/dl Globulin 3.7 gm/dL Albumin/Globulin Ratio 1.0 (1-2) 05/21/20 Range/Units 20:17 WBC (3.98-10.04) K/mm3 RBC (3.98-5.22) M/mm3 Hgb (11.2-15.7) gm/dl Hct (34.1-44.9) % MCV (79.4-94.8) fl MCH (25.6-32.2) pg MCHC (32.2-35.5) g/dl RDW Std Deviation (36.4-46.3) fL Plt Count (182-369) K/mm3 MPV (9.4-12.3) fl Neut % (Auto) (34.0-71.1) % Lymph % (Auto) (19.3-51.7) % [place] % (Auto) (4.7-12.5) % Eos % (Auto) (0.7-5.8) Baso % (Auto) (0.1-1.2) % Neut # (Auto) (1.56-6.13) K/mm3 Lymph # (Auto) (1.18-3.74) K/mm3 [place] # (Auto) (0.24-0.36) K/mm3 Eos # (Auto) (0.04-0.36) K/mm3 Baso # (Auto) (0.01-0.08) K/mm3 Sodium (136-145) mEq/L Potassium (3.5-5.1) mEq/L Chloride (98-107) mEq/L Carbon Dioxide (21-32) mEq/L Anion Gap (5-15) BUN (7-18) mg/dL Creatinine (0.55-1.02) mg/dL Est Cr Clr Drug Dosing mL/min Estimated GFR (MDRD) (>60) mL/min BUN/Creatinine Ratio (14-18) Glucose (83-115) mg/dL Calcium (8.5-10.1) mg/dL Magnesium (1.8-2.4) mg/dl Total Bilirubin (0.2-1.0) mg/dL AST (15-37) U/L ALT (14-59) U/L Alkaline Phosphatase (46-116) U/L Troponin I (0.00-0.056) ng/mL NT-Pro-B Natriuret Pep 988 H (0-450) pg/mL Total Protein (6.4-8.2) g/dl Albumin (3.4-5.0) g/dl Globulin gm/dL Albumin/Globulin Ratio (1-2) - Radiology Interpretation Free Text/Narrative:: 79-year-old female presents to the ED for evaluation of swelling of her right lower extremity which she became more aware of yesterday. She has been out working in the yard planting her garden the last few days. Stooping and bending over good deal. Ambient temperature is also been around 80 degrees. She denies any recent changes in medications. At the walk-in clinic her d- dimer was elevated at 2.2 suggesting possibility of a DVT. She has no history of this. Examination reveals no convincing evidence of DVT. She has dependent edema in both lower extremities. Of concern is her O2 sats are sitting around 90% on room air. Lung sounds are clear to all station percussion. For her further labs done including a BNP and magnesium and a CMP to make sure her renal function is okay. She is a insulin-dependent diabetic type II. We will also have ultrasound done on her right lower extremity. - Re-Assessments/Exams Free Text/Narrative Re-Assessment/Exam: 11/14/19 20:57 Hematology is back revealing a normal white count at 7.66. 63.6 % neutrophils on the auto differential. Hemoglobin is slightly low at 11.8 hematocrit is 36.6. MCV is normal platelet count 246,000 11/14/19 21:10 Doppler ultrasound of the right lower extremity is negative for any DVT. 11/14/19 21:25 Chemistry reveals a sodium of 140 potassium of 3.8. Chloride 104 with a bicarb of 27. Anion gap is 12.8. BUN is slightly elevated at 30 with a creatinine of 1.6 and a GFR of 31 i.e. stage III kidney disease. Glucose is 239. Calcium is 9.1 magnesium slightly low at 1.7. Liver function is normal. Troponin I is 0.020. BNP is elevated at 988. Total protein is 7.2 with an albumin fraction of 3.5 discussed the findings with the patient. I am going to place her on Lasix 40 mg daily for the next 3 to 4 days and then as needed. I will have her step on the scale every morning and if she gains more than a pound and a half in a days she is to take the Lasix that day. Advised her that she should follow-up with her primary care physician and have an echocardiogram arranged to have a look at her ejection fraction due to type 2 diabetes using insulin. Departure - Departure Time of Disposition: 21:37 Disposition: Home, Self-Care 01 Reason for Transfer *Q: Other Condition: Fair Clinical Impression: Dependent edema, Right leg swelling Congestive heart failure Qualifiers: Heart failure type: unspecified Heart failure chronicity: unspecified Qualified Code(s): I50.9 - Heart failure, unspecified Prescriptions: Furosemide [Lasix] 40 mg PO ASDIRECTED PRN #30 tablet PRN Reason: Lower extremity edema Instructions: Edema Referrals: Carolina Rodriguez NUCLEAR POWER REACTOR OPERATOR [Primary Care Provider] - Forms: ED Department Discharge Additional Instructions: Evaluation in the emergency room today in regards to noted swelling in both lower extremities but more discomfort particularily in the lower extremity. On exam both legs contain fluid but the right leg is more tender to palpation particularly in the medial aspect or inside aspect of the leg. The d-dimer for what ever reason was mildly elevated at [facility] at 2.20 which precipitated visit to the ED to make sure there was no blood clot in the leg. Doppler ultrasound of the right lower extremity reveals no signs of a blood clot. Lab tests do reveal that you are retaining more fluid than usual with a BNP elevated at 988. Normal is about 150. This may be because of the increased ambient temperature outside lately and the fact that you are outside working more. If it when you get time to rest you should elevate your legs as much as possible. Suggest Lasix 40 mg once daily every morning for the next 3 days and stepping on the scale every morning and marked down your weight loss. After that every morning if you step on the scale you gain more than a pound or a pound and a half from the day prior that is the day you take the Lasix tablet. This will you do take it every day. I would suggest follow-up however with your primary care physician to arrange for an echocardiogram of your heart to assess ejection fraction how well the pump is working. Sepsis Event Note - Focused Exam Vital Signs: Vital Signs Temp Pulse Resp BP Pulse Ox 11/14/19 20:05 36.8 C 64 20 174/59 H 91 L Date Exam was Performed: 11/14/19 Time Exam was Performed: 22:04
[2019-11-14 20:06] VITALS: BP 174/59; PULSE 64
--- NOTE | 2019-11-14 21:02 | US ---
Left lower extremity deep venous ultrasound: Duplex and color Doppler evaluation was obtained of the right common femoral, proximal greater saphenous, superficial femoral, popliteal, posterior tibial and peroneal veins. Left common femoral vein was also evaluated. Findings: Normal phasic flow, augmentation and compression is seen. Impression: 1. No evidence of deep venous thrombosis within the right lower extremity or within the left common femoral vein. Diagnostic code #1 This report was dictated in MDT
== END 2019-11-14 21:50 | disposition home or self-care (01) ==
LOC: JD.ED 19:44
DX: R60.0 Localized edema (principal); E10.9 Type 1 diabetes mellitus without complications; E10.42 Type 1 diabetes mellitus with diabetic polyneuropathy; I13.0 Hypertensive heart and chronic kidney disease with heart failure and stage 1 through stage 4 chronic kidney disease, or unspecified chronic kidney disease; I50.9 Heart failure, unspecified; N18.3 Chronic kidney disease, stage 3 (moderate); E78.00 Pure hypercholesterolemia, unspecified; F32.9 Major depressive disorder, single episode, unspecified; G25.81 Restless legs syndrome; E66.9 Obesity, unspecified; E10.21 Type 1 diabetes mellitus with diabetic nephropathy; M19.90 Unspecified osteoarthritis, unspecified site; Z68.34 Body mass index [BMI] 34.0-34.9, adult; Z91.040 Latex allergy status; Z91.048 Other nonmedicinal substance allergy status; Z79.899 Other long term (current) drug therapy; Z79.4 Long term (current) use of insulin; Z79.82 Long term (current) use of aspirin
CPT/HCPCS: 36415; 80053; 83735; 83880; 84484; 85025; 93971-26-RT; 93971-RT; 99284-25

== ENCOUNTER 2021-02-24 13:04 | Emergency (ER) | payer MEDICARE, OTHER ==
[2021-02-24] MEDS ORDERED: Sodium Chloride 0.9% 10 ML Syringe FLUSH PRN (14:45)
--- NOTE | 2021-02-24 15:18 | EDM.PDOC ---
ED HPI GENERAL MEDICAL PROBLEM - General Chief Complaint: General Stated Complaint: SORE THROAT/FATIGUE/HEADACHE Time Seen by Provider: 02/24/21 13:17 - History of Present Illness INITIAL COMMENTS - FREE TEXT/NARRATIVE: Patient was at work today when she experienced sudden occurrence of ringing in the ears and dizziness Symptoms were brief, lasting for several seconds Has had intermittent occurrence of similar episodes several times over the past month Reports approximately 10-day history of spasms involving the right shoulder Endorses generalized body aches during that time On 02/22/2021, she developed sore throat and cough symptoms Associated fatigue and headache Denies fever or shortness of breath States she had cold symptoms and cough/bronchitis at beginning of the month Those symptoms resolved after about 10 days muscles Pain Score (Numeric/FACES): 7 - Related Data Allergies Allergy/AdvReac Type Severity Reaction Status Date / Time latex Allergy Severe Anaphylactic Verified 02/24/21 16:46 Shock fresh ink Allergy Severe Anaphylactic Uncoded 02/24/21 16:46 Shock oil based products Allergy Severe Anaphylactic Uncoded 02/24/21 16:46 Shock Home Meds: Home Meds Lisinopril/Hydrochlorothiazide [Lisinopril-Hctz 20-25 mg Tab] 20 - 25 mg PO DAILY 11/07/14 [History] Sertraline HCl 50 mg PO DAILY 11/07/14 [History] atorvaSTATin [Lipitor] 20 mg PO BEDTIME 11/07/14 [History] Linagliptin [Tradjenta] 5 mg PO DAILY 11/11/15 [History] Insulin Glarg,Human.Rec.Analog [Lantus] 50 unit SUBCUT DAILY 12/09/18 [History] Aspirin [Halfprin] 81 mg PO DAILY 01/28/19 [History] rOPINIRole [Requip] 1 mg PO DAILY 01/28/19 [History] Insulin Regular, Human [HumuLIN R] 4 units INJECT 1700 11/14/19 [History] amLODIPine [Norvasc] 2.5 mg PO DAILY 02/24/21 [History] Past Medical History HEENT History: Reports: Otitis Media, Other (See Below) Other HEENT History: actinic otitis externa R ear, impacted cerumen, has upper denture Cardiovascular History: Reports: Heart Failure, High Cholesterol, Hypertension Respiratory History: Reports: None Gastrointestinal History: Reports: Chronic Diarrhea, Colon Polyp, GERD, Hemorrhoids, Other (See Below) Other Gastrointestinal History: tubular adenoma, epigastric pain Genitourinary History: Reports: Urinary Incontinence, UTI, Recurrent, Other (See Below) Other Genitourinary History: CKD III [employer] 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: Musculoskeletal History: Reports: Osteoarthritis Other Musculoskeletal History: restless legs, torn meniscus Neurological History: Reports: Neuropathy, Peripheral Psychiatric History: Reports: Depression Endocrine/Metabolic History: Reports: Diabetes, Type I, Obesity/BMI 30+ Other Endocrine/Metabolic History: nephropathy Hematologic History: Reports: None Immunologic History: Reports: None Oncologic (Cancer) History: Reports: None Dermatologic History: Reports: Psoriasis, Other (See Below) Other Dermatologic History: dermatitis, tinea pedis - Past Surgical History Head Surgeries/Procedures: Reports: None HEENT Surgical History: Reports: Cataract Surgery Cardiovascular Surgical History: Reports: None Respiratory Surgical History: Reports: None GI Surgical History: Reports: Cholecystectomy, Colonoscopy Female Surgical History: Reports: Section, Tubal Ligation Endocrine Surgical History: Reports: None Other Endocrine Surgeries/Procedures: has appointment on 11/10 for a th yroidectomy consult with Dr. Reed Musculoskeletal Surgical History: Reports: None Oncologic Surgical History: Reports: None Dermatological Surgical History: Reports: None Social & Family History - Family History Family Medical History: No Pertinent Family History - Tobacco Use Tobacco Use Status *Q: Former Tobacco User Used Tobacco, but Quit: Yes Month/Year Tobacco Last Used: 2010 - Caffeine Use Caffeine Use: Reports: Coffee, Soda, Tea Other Caffeine Use: 2 cups a day - Recreational Drug Use Recreational Drug Use: No - Living Situation & Occupation Living situation: Reports: , with Spouse Occupation: Employed ED ROS GENERAL - Review of Systems Review Of Systems: See Below Free Text/Narrative/Comment: Constitutional - no fever; fatigue Eyes - no eye pain; no visual disturbance ENT - no rhinorrhea; no congestion; no epistaxis; sore throat Cardiovascular - no chest pain; dizziness Respiratory - no shortness of breath; cough Gastrointestinal - no abdominal pain; no nausea; no vomiting; no diarrhea Genitourinary - no dysuria Musculoskeletal - no neck pain; no back pain; no extremity injury; myalgias; muscle spasm Neurological - headache; no speech disturbance; no weakness ED EXAM, GENERAL - Physical Exam Exam: See Below Free Text/Narrative:: Constitutional - awake; alert; no acute distress Head - no facial swelling or weakness Eyes - extra ocular motion intact; conjunctiva normal; pupils equal and reactive to light ENT - no nasal deformity; no epistaxis; normal phonation; mucus membranes moist; Neck - no swelling Respiratory - normal respiratory effort; no crackles or wheezing; no stridor Cardiovascular - regular rhythm; normal rate; S1; S2; grade 1/6 systolic murmur GI/Abdomen - normal bowel sounds; soft; no tenderness; no rebound; no guarding; no mass Musculoskeletal - grossly normal strength and motion; no swelling or deformity Skin - warm; dry Neurologic - normal speech; no weakness Psychiatric - normal mood and affect; memory and attention normal #1 Interpretation EKG Date: 02/24/21 Time: 15:07 Rhythm: NSR Rate (Beats/Min): 46 [place]: Normal P-Wave: Present QRS: Other (LVH with repolarization abnormality) Comparison: NA - No Prior EKG Course - Vital Signs Text/Narrative:: . Considered etiologies included: dizziness, cough, URI, sore throat, pharyngitis, bronchitis, pneumonia, viral syndrome, myalgia, muscle spasm, COVID-19 Symptoms and examination were discussed Investigations were initiated COVID-19 testing resulted positive Other results were unremarkable Consideration for monoclonal antibody infusion was discussed with patient Patient was provided the medication's "Fact Sheet for Patients and Parents/Caregivers" for review This included statement that therapy was approved under emergent use authorization with no certainty of benefit, and potential risks/adverse reactions Patient voiced understanding with no questions or concerns, and agreed to proceed with infusion Prior to completion of infusion she developed a few, isolated urticarial lesions on forehead and about mouth There was no oropharyngeal swelling, dyspnea, dysphagia, nausea or abdominal pain There was no hemodynamic instability or other features of anaphylaxis Patient was given diphenhydramine with subsequent improvement of urticaria Symptomatic treatment was reviewed Patient was felt to be stable for outpatient follow-up Return precautions were provided Last Recorded V/S: Last Vital Signs Temp 37.1 C 02/24/21 13:43 Pulse 46 L 02/24/21 16:40 Resp 14 02/24/21 16:40 BP 161/51 H 02/24/21 16:40 Pulse Ox 92 L 02/24/21 16:40 - Orders/Labs/Meds Orders: Active Orders 24 hr Category Date Time Status Peripheral IV Care [RC] . DIRECTED Care 02/24/21 14:46 Active Vital Signs [RC] Q15M Care 02/24/21 15:52 Active EPINEPHrine [Adrenalin] Med 02/24/21 15:52 Active 0.3 mg IM ONETIME PRN Famotidine [Pepcid] Med 02/24/21 15:52 Active 20 mg IVPUSH ONETIME PRN Sodium Chloride 0.9% [Saline Flush] Med 02/24/21 14:45 Active 10 ml FLUSH ASDIRECTED PRN Sodium Chloride 0.9% [Saline Flush] Med 02/24/21 16:00 Active 30 ml FLUSH ASDIRECTED diphenhydrAMINE [Benadryl] Med 02/24/21 15:52 Active 50 mg IVPUSH ONETIME PRN methylPREDNISolone Sod Succ [Solu-MEDROL] Med 02/24/21 15:52 Active 125 mg IVPUSH ONETIME PRN Peripheral IV Insertion Adult [OM.PC] Stat Oth 02/24/21 14:46 Ordered EKG 12 Lead [EK] Stat Ther 02/24/21 14:45 Ordered Medication Orders Diphenhydramine HCl (Diphenhydramine 50 Mg/Ml Sdv) 50 mg IVPUSH ONETIME PRN PRN Reason: hypersensitivity reaction Last Admin: 02/24/21 18:23 Dose: 50 mg Documented by: SOBEIDA Epinephrine HCl (Epinephrine 1 Mg/Ml Sdv) 0.3 mg IM ONETIME PRN PRN Reason: hypersensitivity reaction Famotidine (Famotidine 20 Mg/2 Ml Sdv) 20 mg IVPUSH ONETIME PRN PRN Reason: hypersensitivity reaction Methylprednisolone Sodium Succinate (Methylprednisolone Sodium Succinate 125 Mg/2 Ml Sdv) 125 mg IVPUSH ONETIME PRN PRN Reason: hypersensitivity reaction Sodium Chloride (Sodium Chloride 0.9% 10 Ml Syringe) 10 ml FLUSH ASDIRECTED PRN PRN Reason: Keep Vein Open Sodium Chloride (Sodium Chloride 0.9% 10 Ml Syringe) 30 ml FLUSH ASDIRECTED JACI Last Admin: 02/24/21 18:29 Dose: 30 ml Documented by: SOBEIDA Labs: Laboratory Tests 02/24/21 02/24/21 02/24/21 Range/Units 13:51 13:57 13:57 WBC 5.18 (3.98-10.04) K/mm3 RBC 4.05 (3.98-5.22) M/mm3 Hgb 12.1 (11.2-15.7) gm/dl Hct 37.3 (34.1-44.9) % MCV 92.1 (79.4-94.8) fl MCH 29.9 (25.6-32.2) pg MCHC 32.4 (32.2-35.5) g/dl RDW Std Deviation 46.5 H (36.4-46.3) fL Plt Count 229 (182-369) K/mm3 MPV 9.7 (9.4-12.3) fl Neut % (Auto) 64.6 (34.0-71.1) % Lymph % (Auto) 17.6 L (19.3-51.7) % [place] % (Auto) 14.3 H (4.7-12.5) % Eos % (Auto) 2.9 (0.7-5.8) Baso % (Auto) 0.2 (0.1-1.2) % Neut # (Auto) 3.35 (1.56-6.13) K/mm3 Lymph # (Auto) 0.91 L (1.18-3.74) K/mm3 [place] # (Auto) 0.74 H (0.24-0.36) K/mm3 Eos # (Auto) 0.15 (0.04-0.36) K/mm3 Baso # (Auto) 0.01 (0.01-0.08) K/mm3 Sodium 139 (136-145) mEq/L Potassium 4.1 (3.5-5.1) mEq/L Chloride 103 (98-107) mEq/L Carbon Dioxide 27 (21-32) mEq/L Anion Gap 13.1 (5-15) BUN 37 H (7-18) mg/dL Creatinine 1.5 H (0.55-1.02) mg/dL Est Cr Clr Drug Dosing 24.45 mL/min Estimated GFR (MDRD) 34 (>60) mL/min BUN/Creatinine Ratio 24.7 H (14-18) Glucose 121 H (70-99) mg/dL Calcium 8.7 (8.5-10.1) mg/dL Total Bilirubin 0.5 (0.2-1.0) mg/dL AST 27 (15-37) U/L ALT 34 (14-59) U/L Alkaline Phosphatase 91 (46-116) U/L Troponin I < 0.017 (0.00-0.056) ng/mL Total Protein 7.7 (6.4-8.2) g/dl Albumin 3.6 (3.4-5.0) g/dl Globulin 4.1 gm/dL Albumin/Globulin Ratio 0.9 L (1-2) SARS-CoV-2 RNA (GURPREET) Positive H (NEGATIVE) Meds: Medications Generic Name Dose Route Start Last Admin Trade Name Freq PRN Reason Stop Dose Admin Diphenhydramine HCl 50 mg 02/24/21 15:52 02/24/21 18:23 Diphenhydramine 50 Mg/Ml Sdv IVPUSH 50 mg ONETIME PRN Administration hypersensitivity reaction Epinephrine HCl 0.3 mg 02/24/21 15:52 Epinephrine 1 Mg/Ml Sdv IM ONETIME PRN hypersensitivity reaction Famotidine 20 mg 02/24/21 15:52 Famotidine 20 Mg/2 Ml Sdv IVPUSH ONETIME PRN hypersensitivity reaction Methylprednisolone Sodium Succinate 125 mg 02/24/21 15:52 Methylprednisolone Sodium Succinate 125 Mg/2 Ml Sdv IVPUSH ONETIME PRN hypersensitivity reaction Sodium Chloride 10 ml 02/24/21 14:45 Sodium Chloride 0.9% 10 Ml Syringe FLUSH ASDIRECTED PRN Keep Vein Open Sodium Chloride 30 ml 02/24/21 16:00 02/24/21 18:29 Sodium Chloride 0.9% 10 Ml Syringe FLUSH 30 ml ASDIRECTED JACI Administration Discontinued Medications Generic Name Dose Route Start Last Admin Trade Name Freq PRN Reason Stop Dose Admin CASIRIVIMAB/IMDEVIMAB 10 ml/ 110 mls @ 220 mls/hr 02/24/21 15:52 02/24/21 17:41 Sodium Chloride IV 02/24/21 16:21 220 mls/hr ONETIME ONE Administration - Radiology Interpretation Free Text/Narrative:: XR chest, AP portable, radiology interpretation: 1. Slight cardiomegaly and scattered areas of scarring within both lungs 2. Nothing acute is appreciated on portable chest x-ray Departure - Departure Time of Disposition: 20:21 Disposition: Home, Self-Care 01 Clinical Impression: COVID-19 virus infection - Discharge Information *PRESCRIPTION DRUG MONITORING PROGRAM REVIEWED*: Not Applicable *COPY OF PRESCRIPTION DRUG MONITORING REPORT IN PATIENT RAMONA: Not Applicable Instructions: COVID-19: What to Do if You Are Sick - [facility] (06/25/2020) Referrals: Carolina Rodriguez, INSTRUCTOR OF NURSING [Primary Care Provider] - Forms: ED Department Discharge Additional Instructions: Continue self-isolation for COVID-19 in accordance with CDC guidelines - no fever for 24 hours - symptoms improving - at least 10 days have passed since symptoms began Return if condition worsens May resume general activity and regular diet as tolerated Continue usual medications Follow-up with primary care provider is recommended within 1-2 weeks Sepsis Event Note (ED) - Evaluation Sepsis Screening Result: No Definite Risk - Focused Exam Vital Signs: Vital Signs Pulse Resp BP Pulse Ox 02/24/21 16:40 46 L 14 161/51 H 92 L 02/24/21 15:25 46 L 16 159/52 H 93 L - My Orders Last 24 Hours: My Active Orders 02/24/21 14:45 Sodium Chloride 0.9% [Saline Flush] 10 ml FLUSH ASDIRECTED PRN EKG 12 Lead [EK] Stat 02/24/21 14:46 Peripheral IV Care [RC] . DIRECTED Peripheral IV Insertion Adult [OM.PC] Stat 02/24/21 15:52 Vital Signs [RC] Q15M EPINEPHrine [Adrenalin] 0.3 mg IM ONETIME PRN Famotidine [Pepcid] 20 mg IVPUSH ONETIME PRN diphenhydrAMINE [Benadryl] 50 mg IVPUSH ONETIME PRN methylPREDNISolone Sod Succ [Solu-MEDROL] 125 mg IVPUSH ONETIME PRN 02/24/21 16:00 Sodium Chloride 0.9% [Saline Flush] 30 ml FLUSH ASDIRECTED - Assessment/Plan Last 24 Hours: My Active Orders 02/24/21 14:45 Sodium Chloride 0.9% [Saline Flush] 10 ml FLUSH ASDIRECTED PRN EKG 12 Lead [EK] Stat 02/24/21 14:46 Peripheral IV Care [RC] . DIRECTED Peripheral IV Insertion Adult [OM.PC] Stat 02/24/21 15:52 Vital Signs [RC] Q15M EPINEPHrine [Adrenalin] 0.3 mg IM ONETIME PRN Famotidine [Pepcid] 20 mg IVPUSH ONETIME PRN diphenhydrAMINE [Benadryl] 50 mg IVPUSH ONETIME PRN methylPREDNISolone Sod Succ [Solu-MEDROL] 125 mg IVPUSH ONETIME PRN 02/24/21 16:00 Sodium Chloride 0.9% [Saline Flush] 30 ml FLUSH ASDIRECTED
--- NOTE | 2021-02-24 15:42 | CR ---
Chest: Portable view of the chest was obtained. Comparison: Prior chest x-ray of 12/09/20. Slight scarring is seen within the left midlung and left lower lung. Slight scarring is noted within the right lateral costophrenic angle. Lungs otherwise are clear. Heart is enlarged. Upper mediastinum is within normal limits. No discrete osseous abnormality is appreciated. Impression: 1. Slight cardiomegaly and scattered areas of scarring within both lungs. 2. Nothing acute is appreciated on portable chest x-ray. Diagnostic code #2
[2021-02-24] MEDS ORDERED: EPINEPHrine 1 MG/ML SDV IM PRN (15:52)
[2021-02-24] MEDS ORDERED: diphenhydrAMINE 50 MG/ML SDV IVPUSH PRN (15:52)
[2021-02-24] MEDS ORDERED: methylPREDNISolone Sodium Succinate 125 MG/2 ML SDV IVPUSH PRN (15:52)
[2021-02-24] MEDS ORDERED: Famotidine 20 MG/2 ML SDV IVPUSH PRN (15:52)
[2021-02-24] MEDS ORDERED: Sodium Chloride 0.9% 10 ML Syringe FLUSH SCH (16:00)
[2021-02-25 02:45] VITALS: BP 177/57; PULSE 54
== END 2021-02-24 20:58 | disposition home or self-care (01) ==
LOC: JD.ED 13:04
DX: U07.1 COVID-19 (principal); I11.0 Hypertensive heart disease with heart failure; I50.9 Heart failure, unspecified; E10.8 Type 1 diabetes mellitus with unspecified complications; E78.00 Pure hypercholesterolemia, unspecified; E66.9 Obesity, unspecified; K21.9 Gastro-esophageal reflux disease without esophagitis; Z91.018 Allergy to other foods; Z79.82 Long term (current) use of aspirin; Z68.35 Body mass index [BMI] 35.0-35.9, adult; Z87.891 Personal history of nicotine dependence; Z91.040 Latex allergy status
CPT/HCPCS: 36415; 71045; 80053; 84484; 85025; 93005; 96374; 99284; J1200; M0243; Q0243; U0002; 93010

== ENCOUNTER 2021-02-26 08:21 | Emergency (ER) | payer MEDICARE, OTHER ==
[2021-02-26 08:43] VITALS: BP 144/65; PULSE 41
[2021-02-26] MEDS ORDERED: Sodium Chloride 0.9% 10 ML Syringe FLUSH PRN (08:51)
[2021-02-26] MEDS ORDERED: Ondansetron 4 MG/2 ML SDV IVPUSH ONE (08:51)
[2021-02-26] MEDS ORDERED: Sodium Chloride 0.9% 1,000 ML IV SCH (09:00)
--- NOTE | 2021-02-26 10:16 | CR ---
Chest: Portable view of the chest was obtained. Comparison: Prior chest x-ray of 02/24/21. Heart is enlarged. Minimal scarring is seen within left mid lung. Lungs otherwise are clear. No discrete osseous abnormality is appreciated. Impression: 1. Cardiomegaly. Slight left midlung scarring is noted. 2. Nothing acute is otherwise seen on portable chest x-ray. Diagnostic code #2
--- NOTE | 2021-02-26 12:03 | EDM.PDOC ---
ED HPI GENERAL MEDICAL PROBLEM - General Chief Complaint: Respiratory Problem Stated Complaint: COVID + HIGH BP Time Seen by Provider: 02/26/21 08:36 Source of Information: Reports: Patient History Limitations: Reports: No Limitations - History of Present Illness INITIAL COMMENTS - FREE TEXT/NARRATIVE: The patient presents for generalized weakness, nausea, shortness of breath and cough. This has been going on for about 5 days. She is COVID positive and had the regeneron 2 days ago. She says she is not feeling any better. She says she has not feel good for a few weeks. She had some medications changes. She was taking amlodipine now. She says since that pill was started she has been lightheaded at times. She has not been able to eat or drink much. She has been nauseated with no diarrhea. She has no dysuria. She cough a little but not much. She does not have a fever or chills. Onset: Gradual Duration: Week(s): Severity: Moderate Improves with: Reports: None Worsens with: Reports: None Associated Symptoms: Reports: Cough, Nausea/Vomiting, Shortness of Breath. Denies: Chest Pain, Fever/Chills, Headaches Back Pain Score (Numeric/FACES): 8 - Related Data Allergies Allergy/AdvReac Type Severity Reaction Status Date / Time latex Allergy Severe Anaphylactic Verified 02/26/21 08:44 Shock fresh ink Allergy Severe Anaphylactic Uncoded 02/24/21 16:46 Shock oil based products Allergy Severe Anaphylactic Uncoded 02/24/21 16:46 Shock Home Meds: Home Meds Lisinopril/Hydrochlorothiazide [Lisinopril-Hctz 20-25 mg Tab] 20 - 25 mg PO DAILY 11/07/14 [History] Sertraline HCl 50 mg PO DAILY 11/07/14 [History] atorvaSTATin [Lipitor] 20 mg PO BEDTIME 11/07/14 [History] Linagliptin [Tradjenta] 5 mg PO DAILY 11/11/15 [History] Insulin Glarg,Human.Rec.Analog [Lantus] 50 unit SUBCUT DAILY 12/09/18 [History] Aspirin [Halfprin] 81 mg PO DAILY 01/28/19 [History] rOPINIRole [Requip] 1 mg PO DAILY 01/28/19 [History] Insulin Regular, Human [HumuLIN R] 4 units INJECT 1700 11/14/19 [History] amLODIPine [Norvasc] 2.5 mg PO DAILY 02/24/21 [History] Past Medical History HEENT History: Reports: Otitis Media, Other (See Below) Other HEENT History: actinic otitis externa R ear, impacted cerumen, has upper denture Cardiovascular History: Reports: Heart Failure, High Cholesterol, Hypertension Respiratory History: Reports: COPD Gastrointestinal History: Reports: Chronic Diarrhea, Colon Polyp, GERD, Hemorrhoids, Other (See Below) Other Gastrointestinal History: tubular adenoma, epigastric pain Genitourinary History: Reports: Urinary Incontinence, UTI, Recurrent, Other (See Below) Other Genitourinary History: CKD III [employer] History: Reports: Musculoskeletal History: Reports: Osteoarthritis Other Musculoskeletal History: restless legs, torn meniscus Neurological History: Reports: Neuropathy, Peripheral Psychiatric History: Reports: Depression Endocrine/Metabolic History: Reports: Diabetes, Type I, Obesity/BMI 30+ Other Endocrine/Metabolic History: nephropathy Hematologic History: Reports: None Immunologic History: Reports: None Oncologic (Cancer) History: Reports: None Dermatologic History: Reports: Psoriasis, Other (See Below) Other Dermatologic History: dermatitis, tinea pedis - Infectious Disease History Infectious Disease History: Reports: Novel Coronavirus - Past Surgical History Head Surgeries/Procedures: Reports: None HEENT Surgical History: Reports: Cataract Surgery Cardiovascular Surgical History: Reports: None Respiratory Surgical History: Reports: None GI Surgical History: Reports: Cholecystectomy, Colonoscopy Female Surgical History: Reports: Section, Tubal Ligation Endocrine Surgical History: Reports: None Other Endocrine Surgeries/Procedures: has appointment on 11/10 for a thyroidectomy consult with Dr. Reed Musculoskeletal Surgical History: Reports: None Oncologic Surgical History: Reports: None Dermatological Surgical History: Reports: None Social & Family History - Family History Family Medical History: No Pertinent Family History - Tobacco Use Tobacco Use Status *Q: Never Tobacco User Second Hand Smoke Exposure: No - Caffeine Use Caffeine Use: Reports: Coffee Other Caffeine Use: 2 cups a day - Recreational Drug Use Recreational Drug Use: No - Living Situation & Occupation Living situation: Reports: , with Spouse Occupation: Employed ED ROS GENERAL - Review of Systems Review Of Systems: See Below Constitutional: Reports: Malaise, Weakness, Fatigue. Denies: Fever, Chills HEENT: Reports: No Symptoms Respiratory: Reports: Shortness of Breath, Cough Cardiovascular: Reports: No Symptoms Endocrine: Reports: No Symptoms GI/Abdominal: Reports: No Symptoms : Reports: No Symptoms Musculoskeletal: Reports: No Symptoms ED EXAM, GENERAL - Physical Exam Exam: See Below Exam Limited By: No Limitations General Appearance: Alert, No Apparent Distress Ears: Normal External Exam Nose: Normal Inspection Head: Atraumatic, Normocephalic Neck: Normal Inspection Respiratory/Chest: No Respiratory Distress, Lungs Clear, Normal Breath Sounds Cardiovascular: Regular Rate, Rhythm, No Edema, No Murmur GI/Abdominal: Soft, Non-Tender, No Organomegaly, No Mass Back Exam: Normal Inspection Extremities: Normal Inspection #1 Interpretation EKG Date: 02/26/21 Time: 08:40 Rhythm: Other (sinus bradycardia) Rate (Beats/Min): 40 [place]: Normal P-Wave: Present QRS: Normal ST-T: Normal QT: Normal Course - Vital Signs Last Recorded V/S: Last Vital Signs Temp 97.3 F 02/26/21 08:42 Pulse 41 L 02/26/21 08:42 Resp 20 02/26/21 08:42 BP 144/65 H 02/26/21 08:42 Pulse Ox 93 L 02/26/21 08:42 - Orders/Labs/Meds Orders: Active Orders 24 hr Category Date Time Status Cardiac Monitoring [RC] . DIRECTED Care 02/26/21 08:52 Active Oxygen Therapy [RC] PRN Care 02/26/21 08:52 Active Peripheral IV Care [RC] . DIRECTED Care 02/26/21 08:54 Active Sodium Chloride 0.9% [Normal Saline] 1,000 ml Med 02/26/21 09:00 Active IV .BOLUS Sodium Chloride 0.9% [Saline Flush] Med 02/26/21 08:51 Active 10 ml FLUSH ASDIRECTED PRN ED Antiemetic Medication Reflex [OM.PC] Stat Oth 02/26/21 08:52 Ordered Peripheral IV Insertion Adult [OM.PC] Stat Oth 02/26/21 08:51 Ordered Medication Orders Sodium Chloride (Normal Saline) 1,000 mls @ 1,000 mls/hr IV .BOLUS JACI Last Admin: 02/26/21 09:06 Dose: 1,000 mls/hr Documented by: JESUS MANUEL Sodium Chloride (Sodium Chloride 0.9% 10 Ml Syringe) 10 ml FLUSH ASDIRECTED PRN PRN Reason: Keep Vein Open Last Admin: 02/26/21 09:07 Dose: 10 ml Documented by: JESUS MANUEL Labs: Laboratory Tests 02/26/21 02/26/21 02/26/21 Range/Units 09:00 09:00 09:00 WBC 3.91 L (3.98-10.04) K/mm3 RBC 4.03 (3.98-5.22) M/mm3 Hgb 12.0 (11.2-15.7) gm/dl Hct 36.9 (34.1-44.9) % MCV 91.6 (79.4-94.8) fl MCH 29.8 (25.6-32.2) pg MCHC 32.5 (32.2-35.5) g/dl RDW Std Deviation 46.1 (36.4-46.3) fL Plt Count 223 (182-369) K/mm3 MPV 9.5 (9.4-12.3) fl Neut % (Auto) 50.0 (34.0-71.1) % Lymph % (Auto) 30.2 (19.3-51.7) % Lamb % (Auto) 12.0 (4.7-12.5) % Eos % (Auto) 7.2 H (0.7-5.8) Baso % (Auto) 0.3 (0.1-1.2) % Neut # (Auto) 1.96 (1.56-6.13) K/mm3 Lymph # (Auto) 1.18 (1.18-3.74) K/mm3 Lamb # (Auto) 0.47 H (0.24-0.36) K/mm3 Eos # (Auto) 0.28 (0.04-0.36) K/mm3 Baso # (Auto) 0.01 (0.01-0.08) K/mm3 PT 10.0 (9.7-12.0) SECONDS INR 0.93 APTT 24.2 (21.7-31.4) SECONDS D-Dimer, Quantitative 1.95 H (0.19-0.50) mg/L Sodium 142 (136-145) mEq/L Potassium 3.9 (3.5-5.1) mEq/L Chloride 106 (98-107) mEq/L Carbon Dioxide 29 (21-32) mEq/L Anion Gap 10.9 (5-15) BUN 37 H (7-18) mg/dL Creatinine 1.5 H (0.55-1.02) mg/dL Est Cr Clr Drug Dosing 24.45 mL/min Estimated GFR (MDRD) 34 (>60) mL/min BUN/Creatinine Ratio 24.7 H (14-18) Glucose 75 (70-99) mg/dL Lactic Acid (0.4-2.0) mmol/L Calcium 8.5 (8.5-10.1) mg/dL Magnesium 2.1 (1.8-2.4) mg/dL Total Bilirubin 0.4 (0.2-1.0) mg/dL AST 25 (15-37) U/L ALT 31 (14-59) U/L Alkaline Phosphatase 79 (46-116) U/L Troponin I < 0.017 (0.00-0.056) ng/mL C-Reactive Protein 1.4 H* (<1.0) mg/dL NT-Pro-B Natriuret Pep (0-450) pg/mL Total Protein 7.2 (6.4-8.2) g/dl Albumin 3.3 L (3.4-5.0) g/dl Globulin 3.9 gm/dL Albumin/Globulin Ratio 0.9 L (1-2) 02/26/21 02/26/21 Range/Units 09:00 09:00 WBC (3.98-10.04) K/mm3 RBC (3.98-5.22) M/mm3 Hgb (11.2-15.7) gm/dl Hct (34.1-44.9) % MCV (79.4-94.8) fl MCH (25.6-32.2) pg MCHC (32.2-35.5) g/dl RDW Std Deviation (36.4-46.3) fL Plt Count (182-369) K/mm3 MPV (9.4-12.3) fl Neut % (Auto) (34.0-71.1) % Lymph % (Auto) (19.3-51.7) % Lamb % (Auto) (4.7-12.5) % Eos % (Auto) (0.7-5.8) Baso % (Auto) (0.1-1.2) % Neut # (Auto) (1.56-6.13) K/mm3 Lymph # (Auto) (1.18-3.74) K/mm3 Lamb # (Auto) (0.24-0.36) K/mm3 Eos # (Auto) (0.04-0.36) K/mm3 Baso # (Auto) (0.01-0.08) K/mm3 PT (9.7-12.0) SECONDS INR APTT (21.7-31.4) SECONDS D-Dimer, Quantitative (0.19-0.50) mg/L Sodium (136-145) mEq/L Potassium (3.5-5.1) mEq/L Chloride (98-107) mEq/L Carbon Dioxide (21-32) mEq/L Anion Gap (5-15) BUN (7-18) mg/dL Creatinine (0.55-1.02) mg/dL Est Cr Clr Drug Dosing mL/min Estimated GFR (MDRD) (>60) mL/min BUN/Creatinine Ratio (14-18) Glucose (70-99) mg/dL Lactic Acid 1.0 (0.4-2.0) mmol/L Calcium (8.5-10.1) mg/dL Magnesium (1.8-2.4) mg/dL Total Bilirubin (0.2-1.0) mg/dL AST (15-37) U/L ALT (14-59) U/L Alkaline Phosphatase (46-116) U/L Troponin I (0.00-0.056) ng/mL C-Reactive Protein (<1.0) mg/dL NT-Pro-B Natriuret Pep 672 H (0-450) pg/mL Total Protein (6.4-8.2) g/dl Albumin (3.4-5.0) g/dl Globulin gm/dL Albumin/Globulin Ratio (1-2) Meds: Medications Generic Name Dose Route Start Last Admin Trade Name Freq PRN Reason Stop Dose Admin Sodium Chloride 1,000 mls @ 1,000 mls/hr 02/26/21 09:00 02/26/21 09:06 Normal Saline IV 1,000 mls/hr .BOLUS JACI Administration Sodium Chloride 10 ml 02/26/21 08:51 02/26/21 09:07 Sodium Chloride 0.9% 10 Ml Syringe FLUSH 10 ml ASDIRECTED PRN Administration Keep Vein Open Discontinued Medications Generic Name Dose Route Start Last Admin Trade Name Griselda PRN Reason Stop Dose Admin Ondansetron HCl 4 mg 02/26/21 08:51 02/26/21 09:07 Ondansetron 4 Mg/2 Ml Sdv IVPUSH 02/26/21 08:52 4 mg ONETIME ONE Administration - Re-Assessments/Exams Free Text/Narrative Re-Assessment/Exam: 02/26/21 12:09 I ordered an IV NS 1L bolus, zofran 4mg IV, labs, CXR, EKG, and labs. Her EKG shows a sinus bradycardia at 40. At one time her heart rate was down to 37. Her WBC is low at 3.91. Her d-dimer was elevated at 1.95 consistent with COVID 19. Her creatinine was elevated at 1.5. Her CRP was elevated at 1.4. Her BNP was elevated at 672. She feels better now. Her heart rate is better in the upper 40s. I will have her stop the norvasc and I will get her on a holter monitor and have her follow up with Carolina Rodriguez early next week. She should return if she is worse. Her CXR looks good. 02/26/21 12:13 Departure - Departure Time of Disposition: 12:20 Disposition: Home, Self-Care 01 Condition: Good Clinical Impression: Bradycardia, COVID-19 - Discharge Information *PRESCRIPTION DRUG MONITORING PROGRAM REVIEWED*: Not Applicable *COPY OF PRESCRIPTION DRUG MONITORING REPORT IN PATIENT RAMONA: Not Applicable Referrals: Carolina Rodriguez, [facility] [Primary Care Provider] - 1 Week Forms: ED Department Discharge Additional Instructions: Wear the holter monitor for 48 hours. Drink plenty of fluids. Take motrin or tylenol for any fever. Stop taking the amlodipine or norvasc. This could be making your heart rate slow. Follow up with Carolina Rodriguez next week. Please return if you are worse. Sepsis Event Note (ED) - Focused Exam Vital Signs: Vital Signs Temp Pulse Resp BP Pulse Ox 02/26/21 08:42 97.3 F 41 L 20 144/65 H 93 L - My Orders Last 24 Hours: My Active Orders 02/26/21 08:51 Sodium Chloride 0.9% [Saline Flush] 10 ml FLUSH ASDIRECTED PRN Peripheral IV Insertion Adult [OM.PC] Stat 02/26/21 08:52 Cardiac Monitoring [RC] . DIRECTED Oxygen Therapy [RC] PRN ED Antiemetic Medication Reflex [OM.PC] Stat 02/26/21 08:54 Peripheral IV Care [RC] . DIRECTED 02/26/21 09:00 Sodium Chloride 0.9% [Normal Saline] 1,000 ml IV .BOLUS - Assessment/Plan Last 24 Hours: My Active Orders 02/26/21 08:51 Sodium Chloride 0.9% [Saline Flush] 10 ml FLUSH ASDIRECTED PRN Peripheral IV Insertion Adult [OM.PC] Stat 02/26/21 08:52 Cardiac Monitoring [RC] . DIRECTED Oxygen Therapy [RC] PRN ED Antiemetic Medication Reflex [OM.PC] Stat 02/26/21 08:54 Peripheral IV Care [RC] . DIRECTED 02/26/21 09:00 Sodium Chloride 0.9% [Normal Saline] 1,000 ml IV .BOLUS
== END 2021-02-26 12:50 | disposition home or self-care (01) ==
LOC: JD.ED 08:21
DX: U07.1 COVID-19 (principal); R00.1 Bradycardia, unspecified; E78.00 Pure hypercholesterolemia, unspecified; E10.22 Type 1 diabetes mellitus with diabetic chronic kidney disease; I13.0 Hypertensive heart and chronic kidney disease with heart failure and stage 1 through stage 4 chronic kidney disease, or unspecified chronic kidney disease; N18.30 Chronic kidney disease, stage 3 unspecified; I50.9 Heart failure, unspecified; J44.9 Chronic obstructive pulmonary disease, unspecified; E66.9 Obesity, unspecified; Z68.34 Body mass index [BMI] 34.0-34.9, adult; Z91.040 Latex allergy status; Z91.018 Allergy to other foods; Z79.4 Long term (current) use of insulin; Z79.82 Long term (current) use of aspirin; Z79.899 Other long term (current) drug therapy
CPT/HCPCS: 36415; 71045; 80053; 83605; 83735; 83880; 84484; 85025; 85379; 85610; 85730; 86140; 93005; 93225; 93226; 96374; 99285; J2405; J7030; 93010; 99284

== ENCOUNTER 2021-12-10 09:18 | Emergency (ER) | payer MEDICARE, OTHER ==
[2021-12-10 10:15] VITALS: BP 145/58; PULSE 50
== END 2021-12-10 10:20 | disposition home or self-care (01) ==
LOC: JD.ED 09:18
DX: E10.65 Type 1 diabetes mellitus with hyperglycemia (principal); E10.22 Type 1 diabetes mellitus with diabetic chronic kidney disease; I13.0 Hypertensive heart and chronic kidney disease with heart failure and stage 1 through stage 4 chronic kidney disease, or unspecified chronic kidney disease; N18.30 Chronic kidney disease, stage 3 unspecified; I50.9 Heart failure, unspecified; E78.00 Pure hypercholesterolemia, unspecified; M19.90 Unspecified osteoarthritis, unspecified site; J44.9 Chronic obstructive pulmonary disease, unspecified; Z87.891 Personal history of nicotine dependence; Z79.899 Other long term (current) drug therapy; Z79.82 Long term (current) use of aspirin; Z91.040 Latex allergy status; Z91.013 Allergy to seafood; Z91.048 Other nonmedicinal substance allergy status
CPT/HCPCS: 82947; 99284

== ENCOUNTER 2022-04-04 10:05 | Emergency (ER) | payer MEDICARE, OTHER ==
[2022-04-04] MEDS ORDERED: Acetaminophen 325 MG Tab PO ONE (11:37)
[2022-04-04 12:46] VITALS: BP 156/59; PULSE 46
== END 2022-04-04 12:40 | disposition home or self-care (01) ==
LOC: JD.ED 10:05
DX: M70.62 Trochanteric bursitis, left hip (principal); M76.32 Iliotibial band syndrome, left leg; J44.9 Chronic obstructive pulmonary disease, unspecified; I13.0 Hypertensive heart and chronic kidney disease with heart failure and stage 1 through stage 4 chronic kidney disease, or unspecified chronic kidney disease; E10.22 Type 1 diabetes mellitus with diabetic chronic kidney disease; N18.30 Chronic kidney disease, stage 3 unspecified; I50.9 Heart failure, unspecified; E78.00 Pure hypercholesterolemia, unspecified; M19.90 Unspecified osteoarthritis, unspecified site; E66.9 Obesity, unspecified; Z68.30 Body mass index [BMI] 30.0-30.9, adult; Z91.040 Latex allergy status; Z91.048 Other nonmedicinal substance allergy status; Z79.899 Other long term (current) drug therapy; Z79.4 Long term (current) use of insulin; Z79.82 Long term (current) use of aspirin; Z86.16 Personal history of COVID-19
CPT/HCPCS: 73502; 99283; A9270

== ENCOUNTER 2022-09-09 15:22 | Emergency (ER) | payer MEDICARE, OTHER ==
[2022-09-09] MEDS ORDERED: HYDROmorphone 1 MG/ML Syringe IM ONE ×2 (16:05→17:44)
[2022-09-09] MEDS ORDERED: Orphenadrine 100 MG Tab.ER PO ONE (16:05)
[2022-09-09 18:05] VITALS: BP 165/63; PULSE 54
== END 2022-09-09 18:05 | disposition home or self-care (01) ==
LOC: JD.ED 15:22
DX: M54.41 Lumbago with sciatica, right side (principal); M54.42 Lumbago with sciatica, left side; I13.0 Hypertensive heart and chronic kidney disease with heart failure and stage 1 through stage 4 chronic kidney disease, or unspecified chronic kidney disease; E10.22 Type 1 diabetes mellitus with diabetic chronic kidney disease; E10.40 Type 1 diabetes mellitus with diabetic neuropathy, unspecified; N18.30 Chronic kidney disease, stage 3 unspecified; I50.9 Heart failure, unspecified; D63.1 Anemia in chronic kidney disease; E78.00 Pure hypercholesterolemia, unspecified; J44.9 Chronic obstructive pulmonary disease, unspecified; E66.9 Obesity, unspecified; Z86.16 Personal history of COVID-19; Z91.040 Latex allergy status; Z91.048 Other nonmedicinal substance allergy status; Z79.899 Other long term (current) drug therapy; Z68.32 Body mass index [BMI] 32.0-32.9, adult
CPT/HCPCS: 96372; 99283; A9270; J1170

== ENCOUNTER 2022-09-11 05:33 | Inpatient (IN) | payer MEDICARE, OTHER ==
[2022-09-11] MEDS ORDERED: Sodium Chloride 0.9% 10 ML Syringe FLUSH PRN (05:57)
[2022-09-11] MEDS ORDERED: Ondansetron 4 MG/2 ML SDV IVPUSH ONE (05:57)
[2022-09-11] MEDS ORDERED: HYDROmorphone 0.5 MG/0.5 ML Syringe IVPUSH ONE (05:59)
[2022-09-11] MEDS ORDERED: Albuterol/Ipratropium 3.0-0.5 MG/3 ML Neb Soln NEB ONE (05:59)
[2022-09-11] MEDS ORDERED: methylPREDNISolone Sodium Succinate 125 MG/2 ML SDV IVPUSH ONE (06:00)
[2022-09-11 06:54] LABS: ESTIMATED GFR 30 mL/min (>60)
[2022-09-11] MEDS ORDERED: Iopamidol 755 Mg/ML 100 ML Bottle IVPUSH ONE (07:10)
[2022-09-11] MEDS ORDERED: Sodium Chloride 0.9% 100 ML IV SCH (07:15)
[2022-09-11 07:18] LABS: CORONAVIRUS COVID-19 NAA NEGATIVE (NEGATIVE)
[2022-09-11] MEDS ORDERED: Sodium Chloride 0.9% 1,000 ML IV ONE (07:26)
[2022-09-11] MEDS ORDERED: cefTRIAXone 1 GM in Sodium Chloride 0.9% 100 ML IV ONE (09:40)
[2022-09-11] MEDS ORDERED: 50% Dextrose in Water 50 ML Syringe IVPUSH PRN (16:21)
[2022-09-11] MEDS: Insulin Lispro 100 Unit/ML 3 ML KwikPen SUBCUT SCH (17:29)
[2022-09-11] MEDS: Acetaminophen/HYDROcodone 325-5 MG Tab PO PRN (17:31)
[2022-09-11] MEDS: Insulin Regular, Human 100 Units/ML 3 ML Vial SUBCUT SCH (18:19)
[2022-09-11] MEDS: Sodium Chloride 0.45% 1,000 ML IV SCH (19:15)
[2022-09-11] MEDS: atorvaSTATin 40 MG Tab PO SCH (20:28)
[2022-09-11] MEDS: Metoprolol Tartrate 25 MG Tab PO SCH (20:32)
[2022-09-12 05:54] LABS: ESTIMATED GFR 38 mL/min (>60)
[2022-09-12 07:43] LABS: HEMOGLOBIN A1C 7.8 %
[2022-09-12] MEDS: Metoprolol Tartrate 25 MG Tab PO SCH ×2 (08:25→20:05)
[2022-09-12] MEDS: Orphenadrine 100 MG Tab.ER PO PRN ×2 (08:25→20:06)
[2022-09-12] MEDS: rOPINIRole 1 MG Tab PO SCH (08:26)
[2022-09-12] MEDS: Clopidogrel 75 MG Tab PO SCH (08:26)
[2022-09-12] MEDS: Insulin Glargine,Human Rec. Analog 100 Units/ML 3 ML Pen SUBCUT SCH (08:26)
[2022-09-12] MEDS: Insulin Lispro 100 Unit/ML 3 ML KwikPen SUBCUT SCH ×3 (08:28→17:12)
[2022-09-12] MEDS: Insulin Regular, Human 100 Units/ML 3 ML Vial SUBCUT SCH ×3 (08:34→19:06)
[2022-09-12] MEDS: Acetaminophen/HYDROcodone 325-5 MG Tab PO PRN (08:40)
[2022-09-12] MEDS ORDERED: amLODIPine 2.5 MG Tab PO SCH (09:00)
[2022-09-12] MEDS: HYDROmorphone 0.5 MG/0.5 ML Syringe IVPUSH PRN (10:06)
[2022-09-12] MEDS: Famotidine 20 MG Tab PO SCH (10:06)
[2022-09-12] MEDS: methylPREDNISolone Sodium Succinate 125 MG/2 ML SDV IVPUSH SCH ×3 (10:07→21:28)
[2022-09-12] MEDS: Sertraline 50 MG Tab PO SCH (12:44)
[2022-09-12] MEDS: Enoxaparin 30 MG/0.3 ML Syringe SUBCUT SCH (12:44)
[2022-09-12] MEDS: Sodium Chloride 0.45% 1,000 ML IV SCH (15:20)
[2022-09-12] MEDS: Polyethylene Glycol 3350 Powder 17 GM Packet PO SCH (18:28)
[2022-09-12] MEDS ORDERED: Furosemide 20 MG/2 ML VIAL IVPUSH ONE (18:47)
[2022-09-12] MEDS: atorvaSTATin 40 MG Tab PO SCH (20:05)
[2022-09-13] MEDS: Acetaminophen/HYDROcodone 325-5 MG Tab PO PRN ×4 (03:24→22:49)
[2022-09-13] MEDS: methylPREDNISolone Sodium Succinate 125 MG/2 ML SDV IVPUSH SCH ×4 (03:25→22:16)
[2022-09-13] MEDS ORDERED: Sodium Chloride 0.45% 1,000 ML IV SCH (06:00)
[2022-09-13] MEDS: HYDROmorphone 0.5 MG/0.5 ML Syringe IVPUSH PRN ×2 (06:19→10:24)
[2022-09-13] MEDS: Insulin Lispro 100 Unit/ML 3 ML KwikPen SUBCUT SCH ×3 (06:20→16:50)
[2022-09-13] MEDS: Clopidogrel 75 MG Tab PO SCH (08:41)
[2022-09-13] MEDS: rOPINIRole 1 MG Tab PO SCH (08:41)
[2022-09-13] MEDS: Metoprolol Tartrate 25 MG Tab PO SCH ×2 (08:41→20:09)
[2022-09-13] MEDS: Insulin Glargine,Human Rec. Analog 100 Units/ML 3 ML Pen SUBCUT SCH (08:42)
[2022-09-13] MEDS: Famotidine 20 MG Tab PO SCH (08:42)
[2022-09-13] MEDS: Polyethylene Glycol 3350 Powder 17 GM Packet PO SCH (08:43)
[2022-09-13] MEDS: Insulin Regular, Human 100 Units/ML 3 ML Vial SUBCUT SCH ×3 (08:49→18:17)
[2022-09-13] MEDS ORDERED: Sertraline 50 MG Tab PO SCH (09:00)
[2022-09-13] MEDS: amLODIPine 10 MG Tab PO SCH (09:49)
[2022-09-13] MEDS: Sertraline 50 MG Tab PO SCH (11:39)
[2022-09-13] MEDS: Enoxaparin 30 MG/0.3 ML Syringe SUBCUT SCH (11:41)
[2022-09-13] MEDS: Orphenadrine 100 MG Tab.ER PO PRN (16:14)
[2022-09-13] MEDS ORDERED: Lisinopril 5 MG Tab PO ONE (18:00)
[2022-09-13] MEDS ORDERED: hydrALAZINE 25 MG Tab PO ONE (18:30)
[2022-09-13] MEDS ORDERED: hydrALAZINE 25 MG Tab PO PRN (18:41)
[2022-09-13] MEDS: atorvaSTATin 40 MG Tab PO SCH (20:10)
[2022-09-14] MEDS: methylPREDNISolone Sodium Succinate 125 MG/2 ML SDV IVPUSH SCH ×3 (03:59→18:00)
[2022-09-14] MEDS: Orphenadrine 100 MG Tab.ER PO PRN ×2 (04:15→20:50)
[2022-09-14] MEDS: Acetaminophen/HYDROcodone 325-5 MG Tab PO PRN (06:42)
[2022-09-14] MEDS: Insulin Lispro 100 Unit/ML 3 ML KwikPen SUBCUT SCH ×5 (06:43→16:35)
[2022-09-14] MEDS ORDERED: methylPREDNISolone Sodium Succinate 125 MG/2 ML SDV IVPUSH SCH (06:45)
[2022-09-14] MEDS: Metoprolol Tartrate 25 MG Tab PO SCH ×2 (08:12→20:50)
[2022-09-14] MEDS: amLODIPine 10 MG Tab PO SCH (08:13)
[2022-09-14] MEDS: Polyethylene Glycol 3350 Powder 17 GM Packet PO SCH (08:13)
[2022-09-14] MEDS: Clopidogrel 75 MG Tab PO SCH (08:14)
[2022-09-14] MEDS: Famotidine 20 MG Tab PO SCH (08:14)
[2022-09-14] MEDS: Lisinopril 5 MG Tab PO SCH (08:15)
[2022-09-14] MEDS: rOPINIRole 1 MG Tab PO SCH (08:15)
[2022-09-14] MEDS: HYDROmorphone 2 MG Tab PO PRN (08:16)
[2022-09-14] MEDS: Sertraline 50 MG Tab PO SCH (08:16)
[2022-09-14] MEDS: HYDROmorphone 0.5 MG/0.5 ML Syringe IVPUSH PRN (09:14)
[2022-09-14] MEDS: Insulin Glargine,Human Rec. Analog 100 Units/ML 3 ML Pen SUBCUT SCH (09:15)
[2022-09-14] MEDS ORDERED: oxyCODONE ER 20 MG TAB.ER PO ONE (10:58)
[2022-09-14] MEDS: Enoxaparin 30 MG/0.3 ML Syringe SUBCUT SCH (11:31)
[2022-09-14] MEDS: oxyCODONE ER 20 MG TAB.ER PO SCH (20:49)
[2022-09-14] MEDS: atorvaSTATin 40 MG Tab PO SCH (20:50)
[2022-09-15] MEDS: HYDROmorphone 2 MG Tab PO PRN (01:52)
[2022-09-15] MEDS: methylPREDNISolone Sodium Succinate 125 MG/2 ML SDV IVPUSH SCH ×2 (01:52→11:18)
[2022-09-15] MEDS: Insulin Lispro 100 Unit/ML 3 ML KwikPen SUBCUT SCH ×6 (06:41→18:19)
[2022-09-15] MEDS: HYDROmorphone 0.5 MG/0.5 ML Syringe IVPUSH PRN (07:49)
[2022-09-15] MEDS ORDERED: Cyclobenzaprine 10 MG Tab PO PRN (08:02)
[2022-09-15] MEDS: Sertraline 50 MG Tab PO SCH (08:11)
[2022-09-15] MEDS: rOPINIRole 1 MG Tab PO SCH (08:11)
[2022-09-15] MEDS: Famotidine 20 MG Tab PO SCH (08:11)
[2022-09-15] MEDS: oxyCODONE ER 20 MG TAB.ER PO SCH ×2 (08:11→20:38)
[2022-09-15] MEDS: Lisinopril 5 MG Tab PO SCH (08:12)
[2022-09-15] MEDS: Metoprolol Tartrate 25 MG Tab PO SCH ×2 (08:12→20:40)
[2022-09-15] MEDS: Polyethylene Glycol 3350 Powder 17 GM Packet PO SCH (08:13)
[2022-09-15] MEDS: Insulin Glargine,Human Rec. Analog 100 Units/ML 3 ML Pen SUBCUT SCH (08:13)
[2022-09-15] MEDS: Clopidogrel 75 MG Tab PO SCH (08:13)
[2022-09-15] MEDS: amLODIPine 10 MG Tab PO SCH (08:13)
[2022-09-15] MEDS: Enoxaparin 30 MG/0.3 ML Syringe SUBCUT SCH (11:18)
[2022-09-15] MEDS ORDERED: Docusate Sodium 100 MG Cap PO PRN (11:30)
[2022-09-15] MEDS: Cyclobenzaprine 10 MG Tab PO SCH ×2 (13:07→20:39)
[2022-09-15] MEDS: HYDROmorphone 2 MG Tab PO SCH ×2 (13:07→18:18)
[2022-09-15] MEDS: atorvaSTATin 40 MG Tab PO SCH (20:38)
[2022-09-16] MEDS: HYDROmorphone 2 MG Tab PO SCH ×3 (00:39→12:52)
[2022-09-16] MEDS: Cyclobenzaprine 10 MG Tab PO SCH ×2 (04:49→12:51)
[2022-09-16] MEDS: Insulin Lispro 100 Unit/ML 3 ML KwikPen SUBCUT SCH ×4 (07:39→11:41)
[2022-09-16] MEDS: oxyCODONE ER 20 MG TAB.ER PO SCH (08:11)
[2022-09-16] MEDS: Polyethylene Glycol 3350 Powder 17 GM Packet PO SCH (08:13)
[2022-09-16] MEDS: Famotidine 20 MG Tab PO SCH (08:13)
[2022-09-16] MEDS: Clopidogrel 75 MG Tab PO SCH (08:14)
[2022-09-16] MEDS: amLODIPine 10 MG Tab PO SCH (08:14)
[2022-09-16] MEDS: rOPINIRole 1 MG Tab PO SCH (08:15)
[2022-09-16] MEDS: Lisinopril 5 MG Tab PO SCH (08:15)
[2022-09-16] MEDS: Sertraline 50 MG Tab PO SCH (08:17)
[2022-09-16] MEDS: Metoprolol Tartrate 25 MG Tab PO SCH (08:17)
[2022-09-16] MEDS: Insulin Glargine,Human Rec. Analog 100 Units/ML 3 ML Pen SUBCUT SCH (08:17)
[2022-09-16] MEDS: Enoxaparin 30 MG/0.3 ML Syringe SUBCUT SCH (11:26)
[2022-09-16 12:09] VITALS: BP 107/47; PULSE 47
== END 2022-09-16 13:25 | DRG 683 ==
LOC: JD.ED 05:33 → JD.MS 12:33
PROVIDERS: ADMIT Internal Medicine Cardiovascular Disease; ATTEND Internal Medicine Cardiovascular Disease
DX: N17.9 Acute kidney failure, unspecified (principal); I13.0 Hypertensive heart and chronic kidney disease with heart failure and stage 1 through stage 4 chronic kidney disease, or unspecified chronic kidney disease; G89.29 Other chronic pain; R09.02 Hypoxemia; E11.22 Type 2 diabetes mellitus with diabetic chronic kidney disease; N18.30 Chronic kidney disease, stage 3 unspecified; H66.90 Otitis media, unspecified, unspecified ear; E78.00 Pure hypercholesterolemia, unspecified; I50.9 Heart failure, unspecified; J44.9 Chronic obstructive pulmonary disease, unspecified; K21.9 Gastro-esophageal reflux disease without esophagitis; M19.90 Unspecified osteoarthritis, unspecified site; F32.A Depression, unspecified; E66.9 Obesity, unspecified; E11.21 Type 2 diabetes mellitus with diabetic nephropathy; M54.42 Lumbago with sciatica, left side; E11.649 Type 2 diabetes mellitus with hypoglycemia without coma; Z20.822 Contact with and (suspected) exposure to COVID-19; F11.90 Opioid use, unspecified, uncomplicated; G25.81 Restless legs syndrome; E11.40 Type 2 diabetes mellitus with diabetic neuropathy, unspecified; D63.1 Anemia in chronic kidney disease; Z98.49 Cataract extraction status, unspecified eye; Z98.890 Other specified postprocedural states; Z90.49 Acquired absence of other specified parts of digestive tract; Z98.51 Tubal ligation status; Z87.891 Personal history of nicotine dependence; Z91.040 Latex allergy status; Z88.8 Allergy status to other drugs, medicaments and biological substances; Z86.010 Personal history of colon polyps; Z91.018 Allergy to other foods; Z79.4 Long term (current) use of insulin; Z79.899 Other long term (current) drug therapy; Z68.33 Body mass index [BMI] 33.0-33.9, adult
CPT/HCPCS: 0241U; 36415; 71045; 71045-26; 71275; 71275-26; 72148; 72148-26; 74176; 74176-26; 80048; 80053; 81001; 82150; 82947; 83036; 83605; 83690; 83880; 84145; 84484; 85025; 86140; 86738; 87040; 93005; 93010; 94640; 94760; 94761; 94762; 96361; 96365; 96375; 97116-GP; 97140-GP; 97161-GP; 97166-GO; 97530-GP; 99221; 99231; 99232; 99239; 99285; 99285-25; A9270-GY; J0696; J1170; J1650; J1815; J1815-GY; J1940; J2405; J2930; J3490; J7030; J7620-GY; U0002

== ENCOUNTER 2023-06-15 15:22 | Observation (INO) | payer MEDICARE, OTHER ==
[2023-06-15] MEDS ORDERED: methylPREDNISolone Sod Succ 125 MG in Sodium Chloride 0.9% 250 ML IV ONE (16:41)
[2023-06-15] MEDS ORDERED: Sodium Chloride 0.9% 10 ML Syringe FLUSH PRN (16:41)
[2023-06-15] MEDS ORDERED: METHYLPREDNISOLONE SODIUM SUCCINATE ONE (16:44)
[2023-06-15] MEDS ORDERED: methylPREDNISolone Sodium Succinate 125 MG/2 ML SDV IVPUSH ONE (16:47)
[2023-06-15] MEDS ORDERED: Ondansetron 4 MG/2 ML SDV IV PRN (16:57)
[2023-06-15] MEDS ORDERED: Docusate Sodium 100 MG Cap PO PRN (16:57)
[2023-06-15] MEDS ORDERED: Ondansetron 4 MG Tab.DIS PO PRN (16:57)
[2023-06-15] MEDS ORDERED: Doxycycline Monohydrate 100 MG Cap PO SCH (17:00)
[2023-06-15] MEDS ORDERED: 50% Dextrose in Water 50 ML Syringe IVPUSH PRN (17:06)
[2023-06-15] MEDS ORDERED: Glucagon,Human Recombinant 1 MG Vial IM PRN (17:06)
[2023-06-15 17:15] LABS: BASOPHILS PERCENT AUTO 0.5 % (0.0-1.0); EOSINOPHILS ABSOLUTE AUTO 0.3 K/mm3 (0.0-0.4); EOSINOPHILS PERCENT AUTO 3.2 % (0.0-6.0); HEMATOCRIT 38.1 % (37.0-47.0); HEMOGLOBIN 12.5 gm/dl (12.0-16.0); IMMATURE GRAN ABSOLUTE AUTO 0.05 K/mm3 (0.00-0.05); IMMATURE GRAN PERCENT AUTO 0.6 % (0.0-0.4); LYMPHOCYTES ABSOLUTE AUTO 1.5 K/mm3 (1.0-4.8); LYMPHOCYTES PERCENT AUTO 19.7 % (24.0-44.0); MEAN CORPUSCULAR HEMOGLOBIN 30.8 pg (28.0-32.0); MEAN CORPUSCULAR HGB CONC 32.8 g/dl (32.0-36.0); MEAN CORPUSCULAR VOLUME 93.8 fl (83.0-99.0); MEAN PLATELET VOLUME 9.2 fl (9.4-12.3); MONOCYTES ABSOLUTE AUTO 0.8 K/mm3 (0.0-0.8); MONOCYTES PERCENT AUTO 10.1 % (0.0-8.0); NEUTROPHILS ABSOLUTE AUTO 5.1 K/mm3 (1.8-7.7); NEUTROPHILS PERCENT AUTO 65.9 % (41.0-71.0); PLATELET COUNT,PLT 263 K/mm3 (150-400); RED BLOOD CELL COUNT 4.06 M/mm3 (4.10-5.30)
[2023-06-15] MEDS ORDERED: Cyclobenzaprine 10 MG Tab PO SCH (17:15)
[2023-06-15] MEDS: Albuterol/Ipratropium 3.0-0.5 MG/3 ML Neb Soln NEB PRN ×2 (17:34→20:19)
[2023-06-15 17:36] LABS: A/G RATIO 0.8 (1-2); ALBUMIN 3.5 g/dl (3.4-5.0); ANION GAP 12.1 (5-15); BILIRUBIN TOTAL 0.6 mg/dL (0.2-1.0); BUN/CREATININE RATIO 16.7 (14-18); CREATININE 1.5 mg/dL (0.55-1.02); EST CRCL DRUG DOSING (CG) 23.26 mL/min; POTASSIUM,K 4.1 mEq/L (3.5-5.1); PROTEIN TOTAL,TP 7.8 g/dl (6.4-8.2)
[2023-06-15] MEDS: methylPREDNISolone Sodium Succinate 40 MG/1 ML SDV IVPUSH SCH (19:01)
[2023-06-15] MEDS: Insulin Lispro 100 Unit/ML 3 ML KwikPen SUBCUT SCH ×2 (19:01→20:38)
[2023-06-15] MEDS: atorvaSTATin 20 MG Tab PO SCH ×2 (20:35→20:42)
[2023-06-15] MEDS: Metoprolol Tartrate 25 MG Tab PO SCH (20:35)
[2023-06-15] MEDS ORDERED: Famotidine 20 MG Tab PO ONE (21:00)
[2023-06-15] MEDS ORDERED: Famotidine 20 MG Tab PO SCH (21:00)
[2023-06-15] MEDS ORDERED: Methocarbamol 500 MG Tab PO SCH (21:00)
[2023-06-15] MEDS ORDERED: oxyCODONE ER 20 MG TAB.ER PO SCH (21:00)
[2023-06-15] MEDS: Acetaminophen 325 MG Tab PO PRN (23:29)
[2023-06-16] MEDS: methylPREDNISolone Sodium Succinate 40 MG/1 ML SDV IVPUSH SCH ×2 (02:42→10:45)
[2023-06-16 04:58] LABS: BASOPHILS PERCENT AUTO 0.3 % (0.0-1.0); HEMATOCRIT 36.5 % (37.0-47.0); HEMOGLOBIN 12.3 gm/dl (12.0-16.0); IMMATURE GRAN ABSOLUTE AUTO 0.03 K/mm3 (0.00-0.05); IMMATURE GRAN PERCENT AUTO 0.5 % (0.0-0.4); LYMPHOCYTES ABSOLUTE AUTO 0.6 K/mm3 (1.0-4.8); LYMPHOCYTES PERCENT AUTO 9.5 % (24.0-44.0); MEAN CORPUSCULAR HGB CONC 33.7 g/dl (32.0-36.0); MEAN CORPUSCULAR VOLUME 91.9 fl (83.0-99.0); MEAN PLATELET VOLUME 9.4 fl (9.4-12.3); MONOCYTES ABSOLUTE AUTO 0.1 K/mm3 (0.0-0.8); NEUTROPHILS ABSOLUTE AUTO 5.6 K/mm3 (1.8-7.7); NEUTROPHILS PERCENT AUTO 88.7 % (41.0-71.0); PLATELET COUNT,PLT 265 K/mm3 (150-400); RED BLOOD CELL COUNT 3.97 M/mm3 (4.10-5.30)
[2023-06-16 05:16] LABS: ANION GAP 13.3 (5-15); CALCIUM 9.9 mg/dL (8.5-10.1); CREATININE 1.5 mg/dL (0.55-1.02); EST CRCL DRUG DOSING (CG) 23.26 mL/min; POTASSIUM,K 4.3 mEq/L (3.5-5.1)
[2023-06-16] MEDS: Albuterol/Ipratropium 3.0-0.5 MG/3 ML Neb Soln NEB PRN ×4 (05:51→20:37)
[2023-06-16] MEDS: Insulin Lispro 100 Unit/ML 3 ML KwikPen SUBCUT SCH ×4 (08:16→20:47)
[2023-06-16] MEDS: Insulin Glargine,Human Rec. Analog 100 Units/ML 3 ML Pen SUBCUT SCH (08:17)
[2023-06-16] MEDS: Polyethylene Glycol 3350 Powder 17 GM Packet PO SCH (08:19)
[2023-06-16] MEDS: Clopidogrel 75 MG Tab PO SCH (08:21)
[2023-06-16] MEDS: Doxycycline Monohydrate 100 MG Cap PO SCH ×2 (08:21→20:48)
[2023-06-16] MEDS: amLODIPine 2.5 MG Tab PO SCH (08:21)
[2023-06-16] MEDS: Furosemide 20 MG Tab PO SCH (08:22)
[2023-06-16] MEDS: Spironolactone 25 MG Tab PO SCH (08:22)
[2023-06-16] MEDS: Metoprolol Tartrate 25 MG Tab PO SCH ×2 (08:22→20:48)
[2023-06-16] MEDS: atorvaSTATin 40 MG Tab PO SCH (08:22)
[2023-06-16] MEDS: Sertraline 50 MG Tab PO SCH (08:22)
[2023-06-16] MEDS ORDERED: rOPINIRole 1 MG Tab PO SCH ×2 (09:00→21:00)
[2023-06-16] MEDS ORDERED: Lisinopril 5 MG Tab PO SCH (09:00)
[2023-06-16] MEDS ORDERED: Non-Formulary Medication 1 Each (Insulin Glarg,Human.Rec.Analog 100 UNIT/ML Ml) SUBCUT SCH (09:00)
[2023-06-16] MEDS: Famotidine 20 MG Tab PO SCH ×2 (10:45→20:47)
[2023-06-16] MEDS ORDERED: Lisinopril 10 MG Tab PO ONE (15:30)
[2023-06-16] MEDS ORDERED: Lisinopril 20 MG Tab PO SCH (15:30)
[2023-06-16] MEDS: Aspirin 81 MG Tab.EC PO SCH (16:39)
[2023-06-17] MEDS: Acetaminophen 325 MG Tab PO PRN (05:11)
[2023-06-17] MEDS: Albuterol/Ipratropium 3.0-0.5 MG/3 ML Neb Soln NEB PRN ×2 (05:42→09:30)
[2023-06-17] MEDS: Insulin Lispro 100 Unit/ML 3 ML KwikPen SUBCUT SCH ×2 (08:31→11:20)
[2023-06-17] MEDS: Polyethylene Glycol 3350 Powder 17 GM Packet PO SCH (08:32)
[2023-06-17] MEDS: Insulin Glargine,Human Rec. Analog 100 Units/ML 3 ML Pen SUBCUT SCH (08:32)
[2023-06-17] MEDS: atorvaSTATin 40 MG Tab PO SCH (08:32)
[2023-06-17] MEDS: Spironolactone 25 MG Tab PO SCH (08:32)
[2023-06-17] MEDS: Metoprolol Tartrate 25 MG Tab PO SCH (08:33)
[2023-06-17] MEDS: Clopidogrel 75 MG Tab PO SCH (08:33)
[2023-06-17] MEDS: Doxycycline Monohydrate 100 MG Cap PO SCH (08:33)
[2023-06-17] MEDS: Sertraline 50 MG Tab PO SCH (08:33)
[2023-06-17] MEDS: Furosemide 20 MG Tab PO SCH (08:33)
[2023-06-17] MEDS: Aspirin 81 MG Tab.EC PO SCH (08:33)
[2023-06-17] MEDS: amLODIPine 2.5 MG Tab PO SCH (08:34)
[2023-06-17 08:38] VITALS: BP 124/46; PULSE 59
[2023-06-17] MEDS ORDERED: Lisinopril 20 MG Tab PO SCH (09:00)
== END 2023-06-17 12:43 | disposition home or self-care (01) ==
LOC: JD.ED 15:22 → INTOOBSV 17:55 → JD.MS 17:55
PROVIDERS: ADMIT Hospitalist; ATTEND Hospitalist
DX: J96.21 Acute and chronic respiratory failure with hypoxia (principal); J44.1 Chronic obstructive pulmonary disease with (acute) exacerbation; E11.22 Type 2 diabetes mellitus with diabetic chronic kidney disease; I13.0 Hypertensive heart and chronic kidney disease with heart failure and stage 1 through stage 4 chronic kidney disease, or unspecified chronic kidney disease; N18.4 Chronic kidney disease, stage 4 (severe); E11.42 Type 2 diabetes mellitus with diabetic polyneuropathy; I50.9 Heart failure, unspecified; E78.00 Pure hypercholesterolemia, unspecified; K21.9 Gastro-esophageal reflux disease without esophagitis; E66.9 Obesity, unspecified; Z68.32 Body mass index [BMI] 32.0-32.9, adult; I25.10 Atherosclerotic heart disease of native coronary artery without angina pectoris; Z87.891 Personal history of nicotine dependence; Z79.4 Long term (current) use of insulin; Z79.82 Long term (current) use of aspirin; Z79.84 Long term (current) use of oral hypoglycemic drugs; Z79.899 Other long term (current) drug therapy; Z91.040 Latex allergy status; Z91.041 Radiographic dye allergy status
CPT/HCPCS: 36415; 80048; 80053; 82947; 85025; 94640; 94760; 94761; A9270; J1815; J2920; J2930; J3490; J7620-GY

== ENCOUNTER 2024-05-03 07:48 | Inpatient (IN) | payer MEDICARE, OTHER ==
[2024-05-03 08:40] LABS: HEMATOCRIT 41.3 % (37.0-47.0); HEMOGLOBIN 13.5 gm/dl (12.0-16.0); MEAN CORPUSCULAR HEMOGLOBIN 29.9 pg (28.0-32.0); MEAN CORPUSCULAR HGB CONC 32.7 g/dl (32.0-36.0); MEAN PLATELET VOLUME 10.1 fl (9.4-12.3); PLATELET COUNT,PLT 224 K/mm3 (150-400); RED BLOOD CELL COUNT 4.52 M/mm3 (4.10-5.30); WHITE BLOOD CELL COUNT,WBC 7.63 K/mm3 (3.9-11.3)
[2024-05-03 08:41] LABS: MEAN CORPUSCULAR VOLUME 91.4 fl (83.0-99.0)
[2024-05-03 08:45] LABS: PROTHROMBIN TIME 9.7 SECONDS (9.7-12.0)
[2024-05-03 08:47] LABS: INR < 0.93
[2024-05-03 08:49] LABS: ALBUMIN 3.7 g/dl (3.4-5.0); ANION GAP 14.4 (5-15); BILIRUBIN TOTAL 0.5 mg/dL (0.2-1.0); BUN/CREATININE RATIO 18.6 (14-18); C-REACTIVE PROTEIN 0.47 mg/dL (<0.30); CALCIUM 9.5 mg/dL (8.5-10.1); CREATININE 1.4 mg/dL (0.55-1.02); EST CRCL DRUG DOSING (CG) 24.93 mL/min; POTASSIUM,K 4.4 mEq/L (3.5-5.1); PROTEIN TOTAL,TP 7.3 g/dl (6.4-8.2)
[2024-05-03 08:52] LABS: LACTIC ACID 0.9 mmol/L (0.4-2.0)
[2024-05-03] MEDS: Albuterol 0.083% 2.5 MG/3 ML Neb Soln NEB ONE (09:02)
[2024-05-03] MEDS: Albuterol/Ipratropium 3.0-0.5 MG/3 ML Neb Soln NEB ONE (09:02)
[2024-05-03] MEDS: Sodium Chloride 0.9% 500 ML IV ONE (09:17)
[2024-05-03] MEDS: methylPREDNISolone Sodium Succinate 125 MG/2 ML SDV IVPUSH ONE (09:17)
[2024-05-03] MEDS: methylPREDNISolone Sodium Succinate 125 MG/2 ML SDV IM ONE (09:17)
[2024-05-03] MEDS: Sodium Chloride 0.9% 10 ML Syringe FLUSH PRN (09:18)
[2024-05-03] MEDS: cefTRIAXone 1 GM in Sodium Chloride 0.9% 100 ML IV ONE (09:18)
[2024-05-03 09:50] LABS: BAND PERCENT MAN 0 % (0-10); BASOPHILS PERCENT MAN 1 (0.1-1.2); EOSINOPHILS PERCENT MAN 2 % (0.7-5.8); LYMPHOCYTES % ATYPICAL MANUAL 0 %; LYMPHOCYTES PERCENT MAN 12 % (20-40); MONOCYTES PERCENT MAN 6 % (2-10)
[2024-05-03 09:52] LABS: PLATELET COUNT ESTIMATE ADEQUATE
[2024-05-03 10:56] LABS: CORONAVIRUS COVID-19 NAA NEGATIVE (NEGATIVE); INFLUENZA A NAA NEGATIVE (NEGATIVE); RESPIRATORY SYNCYTIAL VIR NAA NEGATIVE (NEGATIVE)
[2024-05-03] MEDS ORDERED: Albuterol 0.083% 2.5 MG/3 ML Neb Soln NEB PRN (11:26)
[2024-05-03] MEDS ORDERED: traMADol 50 MG Tab PO PRN (11:26)
[2024-05-03] MEDS ORDERED: Polyethylene Glycol 3350 Powder 17 GM Packet PO PRN (11:26)
[2024-05-03] MEDS ORDERED: Docusate Sodium 100 MG Cap PO PRN (11:26)
[2024-05-03] MEDS ORDERED: CHOLECALCIFEROL 5000 UNIT PO SCH (11:45)
[2024-05-03] MEDS ORDERED: Cholecalciferol (Vitamin D3) 5,000 UNIT Cap PO SCH (12:00)
[2024-05-03] MEDS: Azithromycin 250 MG Tab PO SCH (15:34)
[2024-05-03] MEDS: Enoxaparin 40 MG/0.4 ML Syringe SUBCUT SCH (15:36)
[2024-05-03] MEDS: Insulin Lispro 100 Unit/ML 3 ML KwikPen SUBCUT SCH ×2 (17:32→21:17)
[2024-05-03] MEDS: Metoprolol Tartrate 25 MG Tab PO SCH (20:59)
[2024-05-03] MEDS: rOPINIRole 1 MG Tab PO SCH (20:59)
[2024-05-03] MEDS ORDERED: Non-Formulary Medication 1 Each (Insulin Glarg,Human.Rec.Analog 100 UNIT/ML Ml) SUBCUT SCH (21:00)
[2024-05-03] MEDS: Insulin Glargine,Human Rec. Analog 100 Units/ML 3 ML Pen SUBCUT SCH (21:18)
[2024-05-04 06:02] LABS: BASOPHILS PERCENT AUTO 0.1 % (0.0-1.0); HEMATOCRIT 37.7 % (37.0-47.0); HEMOGLOBIN 12.4 gm/dl (12.0-16.0); IMMATURE GRAN ABSOLUTE AUTO 0.05 K/mm3 (0.00-0.05); IMMATURE GRAN PERCENT AUTO 0.7 % (0.0-0.4); LYMPHOCYTES ABSOLUTE AUTO 0.6 K/mm3 (1.0-4.8); LYMPHOCYTES PERCENT AUTO 8.3 % (24.0-44.0); MEAN CORPUSCULAR HEMOGLOBIN 29.5 pg (28.0-32.0); MEAN CORPUSCULAR HGB CONC 32.9 g/dl (32.0-36.0); MEAN CORPUSCULAR VOLUME 89.5 fl (83.0-99.0); MEAN PLATELET VOLUME 9.9 fl (9.4-12.3); MONOCYTES ABSOLUTE AUTO 0.6 K/mm3 (0.0-0.8); MONOCYTES PERCENT AUTO 7.6 % (0.0-8.0); NEUTROPHILS ABSOLUTE AUTO 6.2 K/mm3 (1.8-7.7); NEUTROPHILS PERCENT AUTO 83.3 % (41.0-71.0); PLATELET COUNT,PLT 197 K/mm3 (150-400); RED BLOOD CELL COUNT 4.21 M/mm3 (4.10-5.30); WHITE BLOOD CELL COUNT,WBC 7.39 K/mm3 (3.9-11.3)
[2024-05-04 06:26] LABS: A/G RATIO 0.9 (1-2); ALBUMIN 3.2 g/dl (3.4-5.0); ANION GAP 13.2 (5-15); BILIRUBIN TOTAL 0.5 mg/dL (0.2-1.0); BUN/CREATININE RATIO 22.3 (14-18); C-REACTIVE PROTEIN 0.91 mg/dL (<0.30); CALCIUM 9.9 mg/dL (8.5-10.1); CREATININE 1.3 mg/dL (0.55-1.02); EST CRCL DRUG DOSING (CG) 26.84 mL/min; MAGNESIUM 2.1 mg/dL (1.8-2.4); POTASSIUM,K 5.2 mEq/L (3.5-5.1); PROTEIN TOTAL,TP 6.9 g/dl (6.4-8.2)
[2024-05-04] MEDS: cefTRIAXone 2 GM in Sodium Chloride 0.9% 100 ML IV SCH (07:47)
[2024-05-04] MEDS ORDERED: cefTRIAXone 1 GM in Sodium Chloride 0.9% 100 ML IV SCH (08:30)
[2024-05-04] MEDS: Aspirin 81 MG Tab.EC PO SCH (08:50)
[2024-05-04] MEDS: Enoxaparin 30 MG/0.3 ML Syringe SUBCUT SCH (08:50)
[2024-05-04] MEDS: Sertraline 50 MG Tab PO SCH (08:51)
[2024-05-04] MEDS: atorvaSTATin 40 MG Tab PO SCH (08:51)
[2024-05-04] MEDS: Empagliflozin 10 MG Tab PO SCH (08:51)
[2024-05-04] MEDS: Cholecalciferol (Vitamin D3) 5,000 UNIT Cap PO SCH (08:51)
[2024-05-04] MEDS: amLODIPine 10 MG Tab PO SCH (08:51)
[2024-05-04] MEDS: Lisinopril 10 MG Tab PO SCH (08:52)
[2024-05-04] MEDS ORDERED: amLODIPine 10 MG Tab PO SCH (09:00)
[2024-05-04] MEDS ORDERED: oxyCODONE 5 MG Tab PO PRN (14:50)
[2024-05-04] MEDS ORDERED: Labetalol 100 MG/20 ML MDV IVPUSH PRN (14:53)
[2024-05-04] MEDS ORDERED: hydrALAZINE 20 MG/ML SDV IVPUSH PRN (14:53)
[2024-05-04] MEDS: Insulin Lispro 100 Unit/ML 3 ML KwikPen SUBCUT SCH (17:41)
[2024-05-05] MEDS: Albuterol/Ipratropium 3.0-0.5 MG/3 ML Neb Soln NEB PRN (03:21)
[2024-05-05] MEDS: guaiFENesin/Dextromethorphan 100-10 MG/5 ML Soln 5 ML Cup PO PRN (03:43)
[2024-05-05 06:13] LABS: ANION GAP 12.8 (5-15); BUN/CREATININE RATIO 20.8 (14-18); C-REACTIVE PROTEIN 0.35 mg/dL (<0.30); CALCIUM 9.5 mg/dL (8.5-10.1); CREATININE 1.3 mg/dL (0.55-1.02); EST CRCL DRUG DOSING (CG) 26.84 mL/min; POTASSIUM,K 3.8 mEq/L (3.5-5.1)
[2024-05-05] MEDS: Enoxaparin 30 MG/0.3 ML Syringe SUBCUT SCH (08:22)
[2024-05-05] MEDS: Tiotropium BR/Olodaterol HCL 4 GM Inhalation Spray 2.5mcg/1 dose; 10 doses INH SCH (10:17)
[2024-05-05] MEDS: Potassium Chloride 20 MEQ Tab.ER PO ONE (11:26)
[2024-05-06 05:39] LABS: ANION GAP 11.9 (5-15); BUN/CREATININE RATIO 19.2 (14-18); CALCIUM 9.7 mg/dL (8.5-10.1); CREATININE 1.2 mg/dL (0.55-1.02); EST CRCL DRUG DOSING (CG) 29.08 mL/min; MAGNESIUM 1.9 mg/dL (1.8-2.4); POTASSIUM,K 3.9 mEq/L (3.5-5.1)
[2024-05-06] MEDS: predniSONE 20 MG Tab PO SCH (08:31)
[2024-05-06] MEDS: Acetaminophen 325 MG Tab PO PRN (10:32)
[2024-05-06 11:54] VITALS: BP 136/87; PULSE 77
== END 2024-05-06 15:45 | disposition home or self-care (01) | DRG 193 ==
LOC: JD.ED 07:48 → JD.MS 10:13
PROVIDERS: ADMIT Internal Medicine; ATTEND Student in an Organized Health Care Education/Training Program
DX: J18.9 Pneumonia, unspecified organism (principal); J96.01 Acute respiratory failure with hypoxia; J44.0 Chronic obstructive pulmonary disease with (acute) lower respiratory infection; I11.0 Hypertensive heart disease with heart failure; I50.9 Heart failure, unspecified; J44.1 Chronic obstructive pulmonary disease with (acute) exacerbation; I50.32 Chronic diastolic (congestive) heart failure; I13.0 Hypertensive heart and chronic kidney disease with heart failure and stage 1 through stage 4 chronic kidney disease, or unspecified chronic kidney disease; E11.40 Type 2 diabetes mellitus with diabetic neuropathy, unspecified; Z66 Do not resuscitate; E78.00 Pure hypercholesterolemia, unspecified; E66.9 Obesity, unspecified; K21.9 Gastro-esophageal reflux disease without esophagitis; M19.90 Unspecified osteoarthritis, unspecified site; E11.42 Type 2 diabetes mellitus with diabetic polyneuropathy; H61.21 Impacted cerumen, right ear; E11.22 Type 2 diabetes mellitus with diabetic chronic kidney disease; N18.31 Chronic kidney disease, stage 3a; Z88.8 Allergy status to other drugs, medicaments and biological substances; Z79.4 Long term (current) use of insulin; Z98.51 Tubal ligation status; Z90.49 Acquired absence of other specified parts of digestive tract; Z98.49 Cataract extraction status, unspecified eye; Z86.16 Personal history of COVID-19; Z79.82 Long term (current) use of aspirin; Z68.32 Body mass index [BMI] 32.0-32.9, adult; Z79.52 Long term (current) use of systemic steroids; Z79.899 Other long term (current) drug therapy; Z87.891 Personal history of nicotine dependence; Z91.040 Latex allergy status; Z86.0100 Personal history of colon polyps, unspecified
CPT/HCPCS: 0241U; 36415; 71045; 71046; 80048; 80053; 82947; 83605; 83735; 84100; 85007; 85025; 85027; 85610; 86140; 87040; 93005; 94640; 94667; 94668; 94760; 94761; 94762; 96365; 96375; 97110; 97116; 97161; 99285; 93010; A9270-GY; J0696; J1650; J1815; J1815-GY; J2919; J3490; J7030; J7512; J7620-GY

== ENCOUNTER 2024-10-02 15:03 | Emergency (ER) | payer MEDICARE ==
[2024-10-02] MEDS: Albuterol/Ipratropium 3.0-0.5 MG/3 ML Neb Soln NEB ONE (15:15)
[2024-10-02] MEDS: diphenhydrAMINE 50 MG/ML SDV IVPUSH ONE (15:24)
[2024-10-02] MEDS: Famotidine 20 MG/2 ML SDV IVPUSH ONE (15:25)
[2024-10-02] MEDS: methylPREDNISolone Sodium Succinate 125 MG/2 ML SDV IVPUSH ONE (15:25)
[2024-10-02 15:26] LABS: BASOPHILS PERCENT AUTO 0.4 % (0.0-1.0); EOSINOPHILS ABSOLUTE AUTO 0.2 K/mm3 (0.0-0.4); EOSINOPHILS PERCENT AUTO 2.1 % (0.0-6.0); HEMATOCRIT 41.8 % (37.0-47.0); HEMOGLOBIN 13.8 gm/dl (12.0-16.0); IMMATURE GRAN ABSOLUTE AUTO 0.02 K/mm3 (0.00-0.05); IMMATURE GRAN PERCENT AUTO 0.3 % (0.0-0.4); LYMPHOCYTES ABSOLUTE AUTO 1.3 K/mm3 (1.0-4.8); LYMPHOCYTES PERCENT AUTO 16.8 % (24.0-44.0); MEAN CORPUSCULAR HEMOGLOBIN 30.7 pg (28.0-32.0); MEAN CORPUSCULAR VOLUME 92.9 fl (83.0-99.0); MEAN PLATELET VOLUME 9.7 fl (9.4-12.3); MONOCYTES ABSOLUTE AUTO 0.6 K/mm3 (0.0-0.8); MONOCYTES PERCENT AUTO 7.5 % (0.0-8.0); NEUTROPHILS ABSOLUTE AUTO 5.7 K/mm3 (1.8-7.7); NEUTROPHILS PERCENT AUTO 72.9 % (41.0-71.0); PLATELET COUNT,PLT 254 K/mm3 (150-400); WHITE BLOOD CELL COUNT,WBC 7.75 K/mm3 (3.9-11.3)
[2024-10-02] MEDS: Racepinephrine 2.25% 0.5 ML Neb Soln NEB ONE ×2 (15:38→16:42)
[2024-10-02 15:48] LABS: ALANINE AMINOTRANSFERASE,ALT 28 U/L (14-59); ALBUMIN 3.7 g/dl (3.4-5.0); ALKALINE PHOSPHATASE 101 U/L (46-116); ANION GAP 11.3 (5-15); ASPARTATE AMNIOTRANSFERASE,AST 22 U/L (15-37); BILIRUBIN TOTAL 0.7 mg/dL (0.2-1.0); BLOOD UREA NITROGEN,BUN 34 mg/dL (7-18); BUN/CREATININE RATIO 21.3 (14-18); CALCIUM 9.6 mg/dL (8.5-10.1); CARBON DIOXIDE,CO2 26 mEq/L (21-32); CHLORIDE,CL 104 mEq/L (98-107); CREATININE 1.6 mg/dL (0.55-1.02); EST CRCL DRUG DOSING (CG) 21.44 mL/min; ESTIMATED GFR 32 mL/min (>60); GLUCOSE RANDOM 161 mg/dL (70-99); POTASSIUM,K 4.3 mEq/L (3.5-5.1); PROTEIN TOTAL,TP 7.3 g/dl (6.4-8.2); SODIUM,NA 137 mEq/L (136-145)
[2024-10-02 15:52] LABS: C-REACTIVE PROTEIN < 0.05 mg/dL (<0.30)
[2024-10-02] MEDS: hydrALAZINE 20 MG/ML SDV IVPUSH ONE (16:12)
[2024-10-02] MEDS ORDERED: diphenhydrAMINE 50 MG/ML SDV IVPUSH ONE (16:23)
[2024-10-02] MEDS ORDERED: Sodium Chloride 0.9% Inhalation Soln 3 ML Neb INH PRN (16:32)
[2024-10-02] MEDS: Sodium Chloride 0.9% Inhalation Soln 3 ML Neb INH PRN (16:42)
[2024-10-02 18:21] VITALS: BP 181/50; PULSE 77
== END 2024-10-02 18:00 | disposition home or self-care (01) ==
LOC: JD.ED 15:03
DX: T78.49XA Other allergy, initial encounter (principal); I11.0 Hypertensive heart disease with heart failure; I50.9 Heart failure, unspecified; E11.40 Type 2 diabetes mellitus with diabetic neuropathy, unspecified; E66.9 Obesity, unspecified; E78.00 Pure hypercholesterolemia, unspecified; J44.9 Chronic obstructive pulmonary disease, unspecified; M19.90 Unspecified osteoarthritis, unspecified site; Z91.040 Latex allergy status; Z91.048 Other nonmedicinal substance allergy status; Z79.899 Other long term (current) drug therapy; Z79.4 Long term (current) use of insulin; Z79.811 Long term (current) use of aromatase inhibitors; Z86.16 Personal history of COVID-19; Z90.49 Acquired absence of other specified parts of digestive tract; Z87.891 Personal history of nicotine dependence; Z68.34 Body mass index [BMI] 34.0-34.9, adult
CPT/HCPCS: 36415; 80053; 85025; 86140; 94640; 96374; 96375; 99283-25; A9270-GY; J0360; J1200; J2919; J3490

== ENCOUNTER 2024-10-03 12:08 | Emergency (ER) | payer MEDICARE ==
[2024-10-03 12:37] VITALS: BP 171/63; PULSE 62
[2024-10-03] MEDS ORDERED: Sodium Chloride 0.9% 10 ML Syringe FLUSH PRN (12:47)
[2024-10-03] MEDS: Famotidine 20 MG/2 ML SDV IVPUSH ONE (13:06)
[2024-10-03] MEDS: diphenhydrAMINE 50 MG/ML SDV IVPUSH ONE (13:06)
[2024-10-03] MEDS: Racepinephrine 2.25% 0.5 ML Neb Soln NEB ONE ×2 (13:08→14:12)
[2024-10-03] MEDS: Sodium Chloride 0.9% Inhalation Soln 3 ML Neb INH PRN ×2 (13:08→14:12)
[2024-10-03] MEDS ORDERED: Furosemide 40 MG/4 ML VIAL IVPUSH ONE (13:50)
[2024-10-03] MEDS ORDERED: cefTRIAXone 2 GM Vial IVPUSH ONE (13:51)
[2024-10-03] MEDS ORDERED: Diltiazem 25 MG/5 ML SDV IVPUSH ONE (13:51)
== END 2024-10-03 15:47 | disposition home or self-care (01) ==
LOC: JD.ED 12:08
DX: T78.40XA Allergy, unspecified, initial encounter (principal); I10 Essential (primary) hypertension; E11.9 Type 2 diabetes mellitus without complications; E78.00 Pure hypercholesterolemia, unspecified; E66.9 Obesity, unspecified; Z91.040 Latex allergy status; Z91.011 Allergy to milk products; Z91.018 Allergy to other foods; Z79.899 Other long term (current) drug therapy; Z79.4 Long term (current) use of insulin; Z79.82 Long term (current) use of aspirin; Z86.16 Personal history of COVID-19; Z90.49 Acquired absence of other specified parts of digestive tract
CPT/HCPCS: 93005; 94640; 96374; 96375; 99284; A9270; J1200; J3490

== ENCOUNTER 2025-01-04 11:31 | Inpatient (IN) | payer MEDICARE ==
[2025-01-04] MEDS ORDERED: Sodium Chloride 0.9% 10 ML Syringe FLUSH PRN (11:50)
[2025-01-04 12:16] LABS: BASOPHILS ABSOLUTE AUTO 0.0 K/mm3 (0.0-0.2); BASOPHILS PERCENT AUTO 0.4 % (0.0-1.0); EOSINOPHILS ABSOLUTE AUTO 0.3 K/mm3 (0.0-0.4); EOSINOPHILS PERCENT AUTO 3.7 % (0.0-6.0); IMMATURE GRAN ABSOLUTE AUTO 0.04 K/mm3 (0.00-0.05); IMMATURE GRAN PERCENT AUTO 0.5 % (0.0-0.4); LYMPHOCYTES ABSOLUTE AUTO 1.1 K/mm3 (1.0-4.8); LYMPHOCYTES PERCENT AUTO 14.5 % (24.0-44.0); MEAN PLATELET VOLUME 9.7 fl (9.4-12.3); MONOCYTES ABSOLUTE AUTO 0.7 K/mm3 (0.0-0.8); MONOCYTES PERCENT AUTO 9.4 % (0.0-8.0); NEUTROPHILS ABSOLUTE AUTO 5.2 K/mm3 (1.8-7.7); NEUTROPHILS PERCENT AUTO 71.5 % (41.0-71.0); NRBC ABSOLUTE 0.00 (0.00-0.02); NRBC PERCENT 0.0 % (0.0-0.2); PLATELET COUNT,PLT 241 K/mm3 (150-400); RED BLOOD CELL COUNT 4.58 M/mm3 (4.10-5.30); WHITE BLOOD CELL COUNT,WBC 7.32 K/mm3 (3.9-11.3)
[2025-01-04 13:05] LABS: APPEARANCE,URINE SLT CLOUDY (Clear); GLUCOSE,URINE 1+ (Negative); OCCULT BLOOD,URINE NEGATIVE (Negative)
[2025-01-04 13:31] LABS: A/G RATIO 1.0 (1-2); ALANINE AMINOTRANSFERASE,ALT 25.0 U/L (14-59); ASPARTATE AMNIOTRANSFERASE,AST 20.0 U/L (15-37); BILIRUBIN TOTAL 0.7 mg/dL (0.2-1.0); BLOOD UREA NITROGEN,BUN 25.0 mg/dL (7-18); CARBON DIOXIDE,CO2 27.0 mEq/L (21-32); CHLORIDE,CL 106.0 mEq/L (98-107); CREATININE 1.6 mg/dL (0.55-1.02); EST CRCL DRUG DOSING (CG) 21.44 mL/min; ESTIMATED GFR 32.0 mL/min (>60); GLUCOSE RANDOM 99.0 mg/dL (70-99); POTASSIUM,K 4.5 mEq/L (3.5-5.1); PROTEIN TOTAL,TP 6.9 g/dl (6.4-8.2); SODIUM,NA 139.0 mEq/L (136-145)
[2025-01-04 13:35] LABS: TROPONIN I HIGH SENSITIVITY 79.0 pg/mL (<=51)
[2025-01-04 13:44] LABS: COARSE GRANULAR CASTS,URINE 0-5 /hpf (0-5)
[2025-01-04] MEDS: Furosemide 40 MG/4 ML VIAL IVPUSH ONE (14:17)
[2025-01-04] MEDS: methylPREDNISolone Sodium Succinate 125 MG/2 ML SDV IVPUSH ONE (14:48)
[2025-01-04] MEDS ORDERED: Ondansetron 4 MG/2 ML SDV IV PRN (18:07)
[2025-01-04] MEDS ORDERED: Sennosides/Docusate Sodium 50-8.6 MG Tab PO PRN (18:07)
[2025-01-04] MEDS ORDERED: 50% Dextrose in Water 50 ML Syringe IVPUSH PRN (18:11)
[2025-01-04] MEDS: Iopamidol 755 Mg/ML 100 ML Bottle IVPUSH ONE (18:28)
[2025-01-04] MEDS: Tiotropium BR/Olodaterol HCL 4 GM Inhalation Spray 2.5mcg/1 dose; 10 doses INH SCH (18:42)
[2025-01-04] MEDS: Heparin Sodium 5,000 Units/ML Vial SUBCUT SCH (20:00)
[2025-01-04] MEDS: metroNIDAZOLE/Normal Saline 500 MG in Premix Bag 1 BAG IV SCH (21:22)
[2025-01-04] MEDS: Insulin Lispro 100 Unit/ML 3 ML KwikPen SUBCUT SCH (21:39)
[2025-01-04] MEDS: Insulin Glargine,Human Rec. Analog 100 Units/ML 3 ML Pen SUBCUT ONE (21:40)
[2025-01-04] MEDS: Levofloxacin/Dextrose 5%-Water 750 MG in Premix Bag 1 BAG IV SCH (23:20)
[2025-01-05] MEDS: Heparin Sodium 5,000 Units/ML Vial SUBCUT SCH (03:59)
[2025-01-05 05:54] LABS: BASOPHILS ABSOLUTE AUTO 0.0 K/mm3 (0.0-0.2); BASOPHILS PERCENT AUTO 0.1 % (0.0-1.0); EOSINOPHILS ABSOLUTE AUTO 0.0 K/mm3 (0.0-0.4); EOSINOPHILS PERCENT AUTO 0.1 % (0.0-6.0); IMMATURE GRAN ABSOLUTE AUTO 0.05 K/mm3 (0.00-0.05); IMMATURE GRAN PERCENT AUTO 0.7 % (0.0-0.4); LYMPHOCYTES ABSOLUTE AUTO 0.6 K/mm3 (1.0-4.8); LYMPHOCYTES PERCENT AUTO 8.5 % (24.0-44.0); MEAN PLATELET VOLUME 10.0 fl (9.4-12.3); MONOCYTES ABSOLUTE AUTO 0.3 K/mm3 (0.0-0.8); MONOCYTES PERCENT AUTO 3.5 % (0.0-8.0); NEUTROPHILS ABSOLUTE AUTO 6.5 K/mm3 (1.8-7.7); NEUTROPHILS PERCENT AUTO 87.1 % (41.0-71.0); NRBC ABSOLUTE 0.00 (0.00-0.02); NRBC PERCENT 0.0 % (0.0-0.2); PLATELET COUNT,PLT 197 K/mm3 (150-400); RED BLOOD CELL COUNT 4.10 M/mm3 (4.10-5.30); WHITE BLOOD CELL COUNT,WBC 7.43 K/mm3 (3.9-11.3)
[2025-01-05 06:49] LABS: BLOOD UREA NITROGEN,BUN 35.0 mg/dL (7-18); CARBON DIOXIDE,CO2 25.0 mEq/L (21-32); CHLORIDE,CL 105.0 mEq/L (98-107); CREATININE 1.7 mg/dL (0.55-1.02); EST CRCL DRUG DOSING (CG) 20.18 mL/min; ESTIMATED GFR 30.0 mL/min (>60); GLUCOSE RANDOM 168.0 mg/dL (70-99); PHOSPHORUS 3.8 mg/dL (2.6-4.7); POTASSIUM,K 4.8 mEq/L (3.5-5.1); SODIUM,NA 137.0 mEq/L (136-145)
[2025-01-05] MEDS ORDERED: Insulin Glargine,Human Rec. Analog 100 Units/ML 3 ML Pen SUBCUT ONE (21:05)
[2025-01-05] MEDS: Insulin Glargine,Human Rec. Analog 100 Units/ML 3 ML Pen SUBCUT SCH (21:21)
[2025-01-06 06:02] LABS: BLOOD UREA NITROGEN,BUN 31.0 mg/dL (7-18); CARBON DIOXIDE,CO2 26.0 mEq/L (21-32); CHLORIDE,CL 109.0 mEq/L (98-107); CREATININE 1.4 mg/dL (0.55-1.02); EST CRCL DRUG DOSING (CG) 24.5 mL/min; ESTIMATED GFR 38.0 mL/min (>60); GLUCOSE RANDOM 90.0 mg/dL (70-99); POTASSIUM,K 4.4 mEq/L (3.5-5.1); SODIUM,NA 142.0 mEq/L (136-145); TSH 1.762 uIU/mL (0.358-3.74)
[2025-01-07 08:14] VITALS: BP 168/54; PULSE 52
== END 2025-01-07 14:58 | disposition home or self-care (01) | DRG 189 ==
LOC: JD.ED 11:31 → JD.MS 15:36
PROVIDERS: ADMIT Student in an Organized Health Care Education/Training Program; ATTEND Internal Medicine
DX: R09.02 Hypoxemia (principal); I11.0 Hypertensive heart disease with heart failure; J96.01 Acute respiratory failure with hypoxia; I21.4 Non-ST elevation (NSTEMI) myocardial infarction; J44.9 Chronic obstructive pulmonary disease, unspecified; J44.1 Chronic obstructive pulmonary disease with (acute) exacerbation; I13.0 Hypertensive heart and chronic kidney disease with heart failure and stage 1 through stage 4 chronic kidney disease, or unspecified chronic kidney disease; N39.0 Urinary tract infection, site not specified; K57.92 Diverticulitis of intestine, part unspecified, without perforation or abscess without bleeding; J98.11 Atelectasis; Z66 Do not resuscitate; Z79.84 Long term (current) use of oral hypoglycemic drugs; I50.9 Heart failure, unspecified; Z91.013 Allergy to seafood; Z91.048 Other nonmedicinal substance allergy status; H54.7 Unspecified visual loss; E78.00 Pure hypercholesterolemia, unspecified; K21.9 Gastro-esophageal reflux disease without esophagitis; M19.90 Unspecified osteoarthritis, unspecified site; D64.9 Anemia, unspecified; E11.42 Type 2 diabetes mellitus with diabetic polyneuropathy; E86.0 Dehydration; F32.A Depression, unspecified; E03.9 Hypothyroidism, unspecified; N18.9 Chronic kidney disease, unspecified; B96.20 Unspecified Escherichia coli [E. coli] as the cause of diseases classified elsewhere; E66.9 Obesity, unspecified; Z68.33 Body mass index [BMI] 33.0-33.9, adult; Z86.16 Personal history of COVID-19; Z90.49 Acquired absence of other specified parts of digestive tract; Z79.4 Long term (current) use of insulin; Z91.040 Latex allergy status; Z79.899 Other long term (current) drug therapy; Z98.51 Tubal ligation status; Z87.891 Personal history of nicotine dependence; Z98.49 Cataract extraction status, unspecified eye; Z79.82 Long term (current) use of aspirin; Z79.52 Long term (current) use of systemic steroids; Z98.891 History of uterine scar from previous surgery
CPT/HCPCS: 36415; 71045; 80053; 81001; 83880; 84484 ×2; 85025; 86140; 87086; 87088; 87186; 93005; 94640; 96361; 96365; 96375; 99285; A9270; J0696; J1938; J2919; J7030; 71275; 71275-26; 74176; 74176-26; 80048; 82947; 83036; 83735; 84100; 84443; 94761; 99223; 99232; J1644; J1815-GY; J1836; J1956; Q9967

== ENCOUNTER 2025-01-17 10:26 | Emergency (ER) | payer MEDICARE ==
[2025-01-17] MEDS ORDERED: Naloxone 0.4 MG/ML SDV IVPUSH PRN (11:04)
[2025-01-17 11:18] LABS: APPEARANCE,URINE CLEAR (Clear); GLUCOSE,URINE 2+ (Negative); OCCULT BLOOD,URINE NEGATIVE (Negative)
[2025-01-17 11:27] LABS: SQUAMOUS EPITHELIAL CELLS,UR 0-5 /hpf (0-5)
[2025-01-17 11:27] LABS: BASOPHILS ABSOLUTE AUTO 0.0 K/mm3 (0.0-0.2); BASOPHILS PERCENT AUTO 0.4 % (0.0-1.0); EOSINOPHILS ABSOLUTE AUTO 0.1 K/mm3 (0.0-0.4); EOSINOPHILS PERCENT AUTO 1.2 % (0.0-6.0); IMMATURE GRAN ABSOLUTE AUTO 0.04 K/mm3 (0.00-0.05); IMMATURE GRAN PERCENT AUTO 0.4 % (0.0-0.4); LYMPHOCYTES ABSOLUTE AUTO 0.8 K/mm3 (1.0-4.8); LYMPHOCYTES PERCENT AUTO 8.9 % (24.0-44.0); MEAN PLATELET VOLUME 9.8 fl (9.4-12.3); MONOCYTES ABSOLUTE AUTO 0.6 K/mm3 (0.0-0.8); MONOCYTES PERCENT AUTO 6.9 % (0.0-8.0); NEUTROPHILS ABSOLUTE AUTO 7.5 K/mm3 (1.8-7.7); NEUTROPHILS PERCENT AUTO 82.2 % (41.0-71.0); NRBC ABSOLUTE 0.00 (0.00-0.02); NRBC PERCENT 0.0 % (0.0-0.2); PLATELET COUNT,PLT 232 K/mm3 (150-400); RED BLOOD CELL COUNT 4.30 M/mm3 (4.10-5.30); WHITE BLOOD CELL COUNT,WBC 9.15 K/mm3 (3.9-11.3)
[2025-01-17] MEDS: Ketorolac 15 MG/ML SDV IVPUSH ONE (11:39)
[2025-01-17] MEDS: fentaNYL 100 MCG/2 ML SDV IVPUSH ONE (11:40)
[2025-01-17] MEDS: Ondansetron 4 MG/2 ML SDV IVPUSH ONE (11:40)
[2025-01-17 11:42] LABS: INR 0.97
[2025-01-17 11:45] LABS: A/G RATIO 1.0 (1-2); ALANINE AMINOTRANSFERASE,ALT 28.0 U/L (14-59); ASPARTATE AMNIOTRANSFERASE,AST 18.0 U/L (15-37); BILIRUBIN TOTAL 0.9 mg/dL (0.2-1.0); BLOOD UREA NITROGEN,BUN 18.0 mg/dL (7-18); CARBON DIOXIDE,CO2 24.0 mEq/L (21-32); CHLORIDE,CL 106.0 mEq/L (98-107); CREATINE KINASE,CK 81.0 U/L (26-192); CREATININE 1.3 mg/dL (0.55-1.02); EST CRCL DRUG DOSING (CG) 26.39 mL/min; ESTIMATED GFR 41.0 mL/min (>60); GLUCOSE RANDOM 162.0 mg/dL (70-99); POTASSIUM,K 4.0 mEq/L (3.5-5.1); PROTEIN TOTAL,TP 7.1 g/dl (6.4-8.2); SODIUM,NA 140.0 mEq/L (136-145)
[2025-01-17] MEDS ORDERED: diphenhydrAMINE 50 MG/ML SDV IVPUSH ONE (11:53)
[2025-01-17] MEDS: diphenhydrAMINE 50 MG/ML SDV IVPUSH ONE (11:55)
[2025-01-17] MEDS: Sodium Chloride 0.9% 10 ML Syringe FLUSH PRN (12:25)
[2025-01-17] MEDS: Iopamidol 612 MG/ML 100 ML Bottle IVPUSH ONE (12:26)
[2025-01-17] MEDS: diphenhydrAMINE 50 MG/ML SDV ONE (13:19)
[2025-01-17 14:28] VITALS: BP 113/47; PULSE 55
== END 2025-01-17 14:17 | disposition home or self-care (01) ==
LOC: JD.ED 10:26
DX: K57.30 Diverticulosis of large intestine without perforation or abscess without bleeding (principal); E86.0 Dehydration; I11.0 Hypertensive heart disease with heart failure; I50.9 Heart failure, unspecified; E78.00 Pure hypercholesterolemia, unspecified; J44.9 Chronic obstructive pulmonary disease, unspecified; K21.9 Gastro-esophageal reflux disease without esophagitis; E11.9 Type 2 diabetes mellitus without complications; Z86.16 Personal history of COVID-19; Z90.49 Acquired absence of other specified parts of digestive tract; Z91.040 Latex allergy status; Z91.048 Other nonmedicinal substance allergy status; Z91.018 Allergy to other foods; Z79.4 Long term (current) use of insulin; Z79.890 Hormone replacement therapy; Z79.899 Other long term (current) drug therapy
CPT/HCPCS: 36415; 74177; 80053; 81001; 82550; 83690; 83735; 85025; 85610; 96361; 96374; 96375; 99284; J1200; J1885; J2405; J3010; J7030; Q9967

== ENCOUNTER 2025-01-18 09:08 | Inpatient (IN) | payer MEDICARE ==
[2025-01-18 10:06] LABS: O2 SATURATION ARTERIAL 94.0 % (96.0-97.0); PCO2 ARTERIAL 45.0 mmHg (35.0-45.0); PO2 ARTERIAL 61.0 mmHg (80.0-100.0)
[2025-01-18 10:07] LABS: BASE EXCESS ARTERIAL -0.3 (-2-2.0); BICARBONATE,ARTERIAL 25.4 meq/L (22.0-26.0)
[2025-01-18 10:16] LABS: BASOPHILS ABSOLUTE AUTO 0.0 K/mm3 (0.0-0.2); BASOPHILS PERCENT AUTO 0.4 % (0.0-1.0); EOSINOPHILS ABSOLUTE AUTO 0.1 K/mm3 (0.0-0.4); EOSINOPHILS PERCENT AUTO 1.5 % (0.0-6.0); IMMATURE GRAN ABSOLUTE AUTO 0.06 K/mm3 (0.00-0.05); IMMATURE GRAN PERCENT AUTO 0.7 % (0.0-0.4); LYMPHOCYTES ABSOLUTE AUTO 0.7 K/mm3 (1.0-4.8); LYMPHOCYTES PERCENT AUTO 7.5 % (24.0-44.0); MEAN PLATELET VOLUME 9.9 fl (9.4-12.3); MONOCYTES ABSOLUTE AUTO 0.8 K/mm3 (0.0-0.8); MONOCYTES PERCENT AUTO 8.5 % (0.0-8.0); NEUTROPHILS ABSOLUTE AUTO 7.3 K/mm3 (1.8-7.7); NEUTROPHILS PERCENT AUTO 81.4 % (41.0-71.0); NRBC ABSOLUTE 0.00 (0.00-0.02); NRBC PERCENT 0.0 % (0.0-0.2); PLATELET COUNT,PLT 201 K/mm3 (150-400); RED BLOOD CELL COUNT 3.70 M/mm3 (4.10-5.30); WHITE BLOOD CELL COUNT,WBC 8.95 K/mm3 (3.9-11.3)
[2025-01-18 10:40] LABS: A/G RATIO 0.9 (1-2); ALANINE AMINOTRANSFERASE,ALT 28.0 U/L (14-59); ASPARTATE AMNIOTRANSFERASE,AST 21.0 U/L (15-37); BILIRUBIN TOTAL 0.6 mg/dL (0.2-1.0); BLOOD UREA NITROGEN,BUN 21.0 mg/dL (7-18); CARBON DIOXIDE,CO2 26.0 mEq/L (21-32); CHLORIDE,CL 106.0 mEq/L (98-107); CREATININE 1.6 mg/dL (0.55-1.02); EST CRCL DRUG DOSING (CG) 21.44 mL/min; ESTIMATED GFR 32.0 mL/min (>60); GLUCOSE RANDOM 109.0 mg/dL (70-99); POTASSIUM,K 4.2 mEq/L (3.5-5.1); PROTEIN TOTAL,TP 6.3 g/dl (6.4-8.2); SODIUM,NA 139.0 mEq/L (136-145); TROPONIN I HIGH SENSITIVITY 26.0 pg/mL (<=51)
[2025-01-18] MEDS: methylPREDNISolone Sodium Succinate 125 MG/2 ML SDV IVPUSH ONE (10:58)
[2025-01-18] MEDS: Insulin Lispro 100 Unit/ML 3 ML KwikPen SUBCUT ONE (13:10)
[2025-01-18] MEDS ORDERED: 50% Dextrose in Water 50 ML Syringe IVPUSH PRN (17:10)
[2025-01-18] MEDS: Insulin Lispro 100 Unit/ML 3 ML KwikPen SUBCUT SCH (17:18)
[2025-01-18] MEDS: Furosemide 40 MG/4 ML VIAL IVPUSH ONE (18:13)
[2025-01-18 18:35] LABS: TSH 0.644 uIU/mL (0.358-3.74)
[2025-01-18] MEDS: Formoterol/Mometasone 100-5 MCG 8.8 GM Inhaler INH SCH (20:36)
[2025-01-18] MEDS ORDERED: Formoterol/Mometasone 100-5 MCG 8.8 GM Inhaler INH SCH (21:00)
[2025-01-18] MEDS: Insulin Glargine,Human Rec. Analog 100 Units/ML 3 ML Pen SUBCUT SCH (22:00)
[2025-01-19 05:43] LABS: BLOOD UREA NITROGEN,BUN 30.0 mg/dL (7-18); CARBON DIOXIDE,CO2 26.0 mEq/L (21-32); CHLORIDE,CL 106.0 mEq/L (98-107); CREATININE 1.6 mg/dL (0.55-1.02); EST CRCL DRUG DOSING (CG) 21.44 mL/min; ESTIMATED GFR 32.0 mL/min (>60); GLUCOSE RANDOM 198.0 mg/dL (70-99); POTASSIUM,K 4.6 mEq/L (3.5-5.1); SODIUM,NA 139.0 mEq/L (136-145)
[2025-01-19 05:45] LABS: BASOPHILS ABSOLUTE AUTO 0.0 K/mm3 (0.0-0.2); BASOPHILS PERCENT AUTO 0.1 % (0.0-1.0); EOSINOPHILS ABSOLUTE AUTO 0.0 K/mm3 (0.0-0.4); EOSINOPHILS PERCENT AUTO 0.0 % (0.0-6.0); IMMATURE GRAN ABSOLUTE AUTO 0.06 K/mm3 (0.00-0.05); IMMATURE GRAN PERCENT AUTO 0.7 % (0.0-0.4); LYMPHOCYTES ABSOLUTE AUTO 0.5 K/mm3 (1.0-4.8); LYMPHOCYTES PERCENT AUTO 5.7 % (24.0-44.0); MEAN PLATELET VOLUME 9.9 fl (9.4-12.3); MONOCYTES ABSOLUTE AUTO 0.2 K/mm3 (0.0-0.8); MONOCYTES PERCENT AUTO 2.1 % (0.0-8.0); NEUTROPHILS ABSOLUTE AUTO 7.4 K/mm3 (1.8-7.7); NEUTROPHILS PERCENT AUTO 91.4 % (41.0-71.0); NRBC ABSOLUTE 0.00 (0.00-0.02); NRBC PERCENT 0.0 % (0.0-0.2); PLATELET COUNT,PLT 178 K/mm3 (150-400); RED BLOOD CELL COUNT 3.83 M/mm3 (4.10-5.30); WHITE BLOOD CELL COUNT,WBC 8.13 K/mm3 (3.9-11.3)
[2025-01-19] MEDS: Heparin Sodium 5,000 Units/ML Vial SUBCUT SCH (08:51)
[2025-01-19] MEDS: Tiotropium Bromide 4 GM Inhalation Spray (2.5mcg/1 dose; 10 doses) INH SCH (09:06)
[2025-01-19] MEDS: Furosemide 40 MG/4 ML VIAL IVPUSH ONE (11:08)
[2025-01-19] MEDS: Insulin Glargine,Human Rec. Analog 100 Units/ML 3 ML Pen SUBCUT SCH (21:07)
[2025-01-20 05:30] LABS: BASOPHILS ABSOLUTE AUTO 0.0 K/mm3 (0.0-0.2); BASOPHILS PERCENT AUTO 0.2 % (0.0-1.0); EOSINOPHILS ABSOLUTE AUTO 0.1 K/mm3 (0.0-0.4); EOSINOPHILS PERCENT AUTO 0.7 % (0.0-6.0); IMMATURE GRAN ABSOLUTE AUTO 0.05 K/mm3 (0.00-0.05); IMMATURE GRAN PERCENT AUTO 0.6 % (0.0-0.4); LYMPHOCYTES ABSOLUTE AUTO 1.0 K/mm3 (1.0-4.8); LYMPHOCYTES PERCENT AUTO 11.0 % (24.0-44.0); MEAN PLATELET VOLUME 9.7 fl (9.4-12.3); MONOCYTES ABSOLUTE AUTO 0.6 K/mm3 (0.0-0.8); MONOCYTES PERCENT AUTO 7.2 % (0.0-8.0); NEUTROPHILS ABSOLUTE AUTO 7.0 K/mm3 (1.8-7.7); NEUTROPHILS PERCENT AUTO 80.3 % (41.0-71.0); NRBC ABSOLUTE 0.00 (0.00-0.02); NRBC PERCENT 0.0 % (0.0-0.2); PLATELET COUNT,PLT 209 K/mm3 (150-400); RED BLOOD CELL COUNT 3.63 M/mm3 (4.10-5.30); WHITE BLOOD CELL COUNT,WBC 8.70 K/mm3 (3.9-11.3)
[2025-01-20 05:53] LABS: BLOOD UREA NITROGEN,BUN 37.0 mg/dL (7-18); CARBON DIOXIDE,CO2 27.0 mEq/L (21-32); CHLORIDE,CL 108.0 mEq/L (98-107); CREATININE 1.4 mg/dL (0.55-1.02); EST CRCL DRUG DOSING (CG) 24.5 mL/min; ESTIMATED GFR 38.0 mL/min (>60); GLUCOSE RANDOM 92.0 mg/dL (70-99); POTASSIUM,K 3.8 mEq/L (3.5-5.1); SODIUM,NA 144.0 mEq/L (136-145)
[2025-01-20] MEDS: Fluticasone NASAL Spray 16 GM Bottle NASBOTH SCH (09:46)
[2025-01-20] MEDS: EPINEPHrine 1 MG/ML SDV IM ONE ×2 (10:09→12:08)
[2025-01-20] MEDS ORDERED: Sodium Chloride 3% Inhalation Soln 4 ML Neb INH PRN (12:21)
[2025-01-20] MEDS: methylPREDNISolone Sodium Succinate 40 MG/1 ML SDV IVPUSH ONE (14:26)
[2025-01-20] MEDS: Insulin Lispro 100 Unit/ML 3 ML KwikPen SUBCUT ONE (14:27)
[2025-01-20] MEDS: Insulin Lispro 100 Unit/ML 3 ML KwikPen SUBCUT SCH (21:31)
[2025-01-21 04:34] LABS: BASOPHILS ABSOLUTE AUTO 0.0 K/mm3 (0.0-0.2); BASOPHILS PERCENT AUTO 0.3 % (0.0-1.0); EOSINOPHILS ABSOLUTE AUTO 0.0 K/mm3 (0.0-0.4); EOSINOPHILS PERCENT AUTO 0.0 % (0.0-6.0); IMMATURE GRAN ABSOLUTE AUTO 0.07 K/mm3 (0.00-0.05); IMMATURE GRAN PERCENT AUTO 1.2 % (0.0-0.4); LYMPHOCYTES ABSOLUTE AUTO 0.5 K/mm3 (1.0-4.8); LYMPHOCYTES PERCENT AUTO 7.8 % (24.0-44.0); MEAN PLATELET VOLUME 9.8 fl (9.4-12.3); MONOCYTES ABSOLUTE AUTO 0.3 K/mm3 (0.0-0.8); MONOCYTES PERCENT AUTO 4.8 % (0.0-8.0); NEUTROPHILS ABSOLUTE AUTO 5.2 K/mm3 (1.8-7.7); NEUTROPHILS PERCENT AUTO 85.9 % (41.0-71.0); NRBC ABSOLUTE 0.00 (0.00-0.02); NRBC PERCENT 0.0 % (0.0-0.2); PLATELET COUNT,PLT 210 K/mm3 (150-400); RED BLOOD CELL COUNT 3.74 M/mm3 (4.10-5.30); WHITE BLOOD CELL COUNT,WBC 6.01 K/mm3 (3.9-11.3)
[2025-01-21 04:49] LABS: BLOOD UREA NITROGEN,BUN 31.0 mg/dL (7-18); CARBON DIOXIDE,CO2 26.0 mEq/L (21-32); CHLORIDE,CL 109.0 mEq/L (98-107); CREATININE 1.1 mg/dL (0.55-1.02); EST CRCL DRUG DOSING (CG) 31.19 mL/min; ESTIMATED GFR 50.0 mL/min (>60); GLUCOSE RANDOM 160.0 mg/dL (70-99); POTASSIUM,K 4.5 mEq/L (3.5-5.1); SODIUM,NA 142.0 mEq/L (136-145)
[2025-01-21 16:16] VITALS: BP 153/59; PULSE 53
== END 2025-01-21 15:50 | disposition home or self-care (01) | DRG 177 ==
LOC: JD.ED 09:08 → JD.MS 13:01 → JD.ICU 01-20 10:16
PROVIDERS: ADMIT Family Medicine; ATTEND Student in an Organized Health Care Education/Training Program
PROC: 4A033R1 Measurement of Arterial Saturation, Peripheral, Percutaneous Approach (ICD-10-PCS; principal; 2025-01-18)
DX: J15.69 Pneumonia due to other Gram-negative bacteria (principal); N17.9 Acute kidney failure, unspecified; J18.9 Pneumonia, unspecified organism; J96.01 Acute respiratory failure with hypoxia; K57.92 Diverticulitis of intestine, part unspecified, without perforation or abscess without bleeding; I11.0 Hypertensive heart disease with heart failure; J44.1 Chronic obstructive pulmonary disease with (acute) exacerbation; J44.0 Chronic obstructive pulmonary disease with (acute) lower respiratory infection; I13.0 Hypertensive heart and chronic kidney disease with heart failure and stage 1 through stage 4 chronic kidney disease, or unspecified chronic kidney disease; Z66 Do not resuscitate; E11.9 Type 2 diabetes mellitus without complications; D64.9 Anemia, unspecified; H54.7 Unspecified visual loss; I50.9 Heart failure, unspecified; E78.00 Pure hypercholesterolemia, unspecified; E11.22 Type 2 diabetes mellitus with diabetic chronic kidney disease; K21.9 Gastro-esophageal reflux disease without esophagitis; N18.9 Chronic kidney disease, unspecified; E03.9 Hypothyroidism, unspecified; M19.90 Unspecified osteoarthritis, unspecified site; E86.0 Dehydration; E11.42 Type 2 diabetes mellitus with diabetic polyneuropathy; F32.A Depression, unspecified; E66.9 Obesity, unspecified; Z68.33 Body mass index [BMI] 33.0-33.9, adult; Z86.16 Personal history of COVID-19; Z79.4 Long term (current) use of insulin; Z98.51 Tubal ligation status; Z98.49 Cataract extraction status, unspecified eye; Z90.49 Acquired absence of other specified parts of digestive tract; Z79.899 Other long term (current) drug therapy; Z98.891 History of uterine scar from previous surgery; Z91.040 Latex allergy status
CPT/HCPCS: 36415; 36600; 71045; 80053; 82803; 83880; 84443; 84484; 85025; 86140; 94640; 96365; 96375; 99285; A9270 ×2; J0456; J2919; J7030; J7050; 80048; 82947; 87070; 87205; 87426-QW; 94761; 97112-GP; 97116-GP; 97161-GP; J0171; J0692; J0696; J1644; J1815-GY; J1938; J3490

== ENCOUNTER 2025-03-25 16:51 | Emergency (ER) | payer MEDICARE ==
[2025-03-25 17:34] LABS: BASOPHILS ABSOLUTE AUTO 0.0 K/mm3 (0.0-0.2); BASOPHILS PERCENT AUTO 0.5 % (0.0-1.0); EOSINOPHILS ABSOLUTE AUTO 0.1 K/mm3 (0.0-0.4); EOSINOPHILS PERCENT AUTO 1.9 % (0.0-6.0); IMMATURE GRAN ABSOLUTE AUTO 0.04 K/mm3 (0.00-0.05); IMMATURE GRAN PERCENT AUTO 0.6 % (0.0-0.4); LYMPHOCYTES ABSOLUTE AUTO 1.2 K/mm3 (1.0-4.8); LYMPHOCYTES PERCENT AUTO 18.6 % (24.0-44.0); MEAN PLATELET VOLUME 9.7 fl (9.4-12.3); MONOCYTES ABSOLUTE AUTO 0.5 K/mm3 (0.0-0.8); MONOCYTES PERCENT AUTO 8.4 % (0.0-8.0); NEUTROPHILS ABSOLUTE AUTO 4.4 K/mm3 (1.8-7.7); NEUTROPHILS PERCENT AUTO 70.0 % (41.0-71.0); NRBC ABSOLUTE 0.00 (0.00-0.02); NRBC PERCENT 0.0 % (0.0-0.2); PLATELET COUNT,PLT 269 K/mm3 (150-400); RED BLOOD CELL COUNT 4.39 M/mm3 (4.10-5.30); WHITE BLOOD CELL COUNT,WBC 6.34 K/mm3 (3.9-11.3)
[2025-03-25 18:00] LABS: A/G RATIO 1.2 (1-2); ALANINE AMINOTRANSFERASE,ALT 32.0 U/L (14-59); ASPARTATE AMNIOTRANSFERASE,AST 19.0 U/L (15-37); BILIRUBIN TOTAL 0.7 mg/dL (0.2-1.0); BLOOD UREA NITROGEN,BUN 26.0 mg/dL (7-18); CARBON DIOXIDE,CO2 28.0 mEq/L (21-32); CHLORIDE,CL 103.0 mEq/L (98-107); CREATININE 1.5 mg/dL (0.55-1.02); EST CRCL DRUG DOSING (CG) 22.87 mL/min; ESTIMATED GFR 35.0 mL/min (>60); GLUCOSE RANDOM 157.0 mg/dL (70-99); POTASSIUM,K 3.6 mEq/L (3.5-5.1); PROTEIN TOTAL,TP 7.3 g/dl (6.4-8.2); SODIUM,NA 139.0 mEq/L (136-145); TROPONIN I HIGH SENSITIVITY 29.0 pg/mL (<=51)
[2025-03-25] MEDS: Diltiazem 25 MG/5 ML SDV IVPUSH ONE (19:26)
[2025-03-25] MEDS: Diltiazem IR 60 MG Tab PO ONE (20:37)
[2025-03-25 20:58] VITALS: BP 156/65; PULSE 67
== END 2025-03-25 20:57 | disposition home or self-care (01) ==
LOC: JD.ED 16:51
DX: I48.0 Paroxysmal atrial fibrillation (principal); Z91.040 Latex allergy status; Z91.048 Other nonmedicinal substance allergy status; Z79.899 Other long term (current) drug therapy; Z79.4 Long term (current) use of insulin; Z79.890 Hormone replacement therapy
CPT/HCPCS: 36415; 80053; 83735; 84484; 85025; 93005; 96365; 96367; 96376; 99285; A9270; J1163; J3480; J3490; J7030

== ENCOUNTER 2025-04-28 08:57 | Inpatient (IN) | payer MEDICARE ==
[2025-04-28] MEDS: diphenhydrAMINE 50 MG/ML SDV IVPUSH ONE (09:35)
[2025-04-28] MEDS: methylPREDNISolone Sodium Succinate 125 MG/2 ML SDV IVPUSH ONE (09:36)
[2025-04-28] MEDS: Sodium Chloride 0.9% Inhalation Soln 3 ML Neb INH PRN ×2 (09:39→11:54)
[2025-04-28] MEDS ORDERED: Sodium Chloride 0.9% 10 ML Syringe FLUSH PRN (14:10)
[2025-04-28] MEDS: EPINEPHrine 1 MG/ML SDV IM ONE ×2 (14:20→16:58)
[2025-04-28] MEDS: fentaNYL 100 MCG/2 ML SDV IVPUSH ONE (14:42)
[2025-04-28 14:50] LABS: A/G RATIO 1.0 (1-2); ALANINE AMINOTRANSFERASE,ALT 22 U/L (14-59); ASPARTATE AMNIOTRANSFERASE,AST 20 U/L (15-37); BASOPHILS ABSOLUTE AUTO 0.1 K/mm3 (0.0-0.2); BASOPHILS PERCENT AUTO 0.7 % (0.0-1.0); BILIRUBIN TOTAL 0.6 mg/dL (0.2-1.0); BLOOD UREA NITROGEN,BUN 32 mg/dL (7-18); CARBON DIOXIDE,CO2 31 mEq/L (21-32); CHLORIDE,CL 106 mEq/L (98-107); CREATININE 1.5 mg/dL (0.55-1.02); EOSINOPHILS ABSOLUTE AUTO 0.2 K/mm3 (0.0-0.4); EOSINOPHILS PERCENT AUTO 2.8 % (0.0-6.0); ESTIMATED GFR 35 mL/min (>60); GLUCOSE RANDOM 151 mg/dL (70-99); IMMATURE GRAN ABSOLUTE AUTO 0.05 K/mm3 (0.00-0.05); IMMATURE GRAN PERCENT AUTO 0.7 % (0.0-0.4); LYMPHOCYTES ABSOLUTE AUTO 1.5 K/mm3 (1.0-4.8); LYMPHOCYTES PERCENT AUTO 20.3 % (24.0-44.0); MEAN PLATELET VOLUME 10.6 fl (9.4-12.3); MONOCYTES ABSOLUTE AUTO 0.7 K/mm3 (0.0-0.8); MONOCYTES PERCENT AUTO 9.1 % (0.0-8.0); NEUTROPHILS ABSOLUTE AUTO 4.7 K/mm3 (1.8-7.7); NEUTROPHILS PERCENT AUTO 66.4 % (41.0-71.0); NRBC ABSOLUTE 0.00 (0.00-0.02); NRBC PERCENT 0.0 % (0.0-0.2); PLATELET COUNT,PLT 288 K/mm3 (150-400); POTASSIUM,K 4.4 mEq/L (3.5-5.1); PROTEIN TOTAL,TP 7.5 g/dl (6.4-8.2); RED BLOOD CELL COUNT 4.22 M/mm3 (4.10-5.30); SODIUM,NA 143 mEq/L (136-145); WHITE BLOOD CELL COUNT,WBC 7.13 K/mm3 (3.9-11.3)
[2025-04-29] MEDS: Diltiazem 120 MG Cap.CD PO SCH (09:21)
[2025-04-29] MEDS: Tiotropium BR/Olodaterol HCL 4 GM Inhalation Spray 2.5mcg/1 dose; 10 doses INH SCH (09:34)
[2025-04-29] MEDS: Insulin Lispro 100 Unit/ML 3 ML KwikPen SUBCUT SCH (11:39)
[2025-04-29] MEDS ORDERED: Sodium Chloride 0.9% Inhalation Soln 3 ML Neb INH PRN (13:23)
[2025-04-29] MEDS: Insulin Glargine,Human Rec. Analog 100 Units/ML 3 ML Pen SUBCUT SCH (21:04)
[2025-04-29] MEDS: Benzocaine/Cetylpyridinium/Menthol Lozenge MUCMEM PRN (21:16)
[2025-04-30] MEDS ORDERED: EPINEPHrine 1 MG/ML SDV IM PRN (08:25)
[2025-04-30] MEDS ORDERED: Sodium Chloride 0.9% Inhalation Soln 3 ML Neb INH PRN (09:02)
[2025-04-30] MEDS: Pantoprazole 40 MG in Sodium Chloride 0.9% 10 ML IVPUSH ONE (11:44)
[2025-05-01 04:11] LABS: BASOPHILS ABSOLUTE AUTO 0.0 K/mm3 (0.0-0.2); BASOPHILS PERCENT AUTO 0.6 % (0.0-1.0); EOSINOPHILS ABSOLUTE AUTO 0.2 K/mm3 (0.0-0.4); EOSINOPHILS PERCENT AUTO 2.6 % (0.0-6.0); IMMATURE GRAN ABSOLUTE AUTO 0.04 K/mm3 (0.00-0.05); IMMATURE GRAN PERCENT AUTO 0.6 % (0.0-0.4); LYMPHOCYTES ABSOLUTE AUTO 1.6 K/mm3 (1.0-4.8); LYMPHOCYTES PERCENT AUTO 22.5 % (24.0-44.0); MEAN PLATELET VOLUME 9.9 fl (9.4-12.3); MONOCYTES ABSOLUTE AUTO 0.7 K/mm3 (0.0-0.8); MONOCYTES PERCENT AUTO 9.4 % (0.0-8.0); NEUTROPHILS ABSOLUTE AUTO 4.7 K/mm3 (1.8-7.7); NEUTROPHILS PERCENT AUTO 64.3 % (41.0-71.0); NRBC ABSOLUTE 0.00 (0.00-0.02); NRBC PERCENT 0.0 % (0.0-0.2); PLATELET COUNT,PLT 234 K/mm3 (150-400); RED BLOOD CELL COUNT 4.00 M/mm3 (4.10-5.30); WHITE BLOOD CELL COUNT,WBC 7.26 K/mm3 (3.9-11.3)
[2025-05-01 04:38] LABS: BLOOD UREA NITROGEN,BUN 43.0 mg/dL (7-18); CARBON DIOXIDE,CO2 28.0 mEq/L (21-32); CHLORIDE,CL 103.0 mEq/L (98-107); CREATININE 1.7 mg/dL (0.55-1.02); EST CRCL DRUG DOSING (CG) 20.18 mL/min; ESTIMATED GFR 30.0 mL/min (>60); GLUCOSE RANDOM 122.0 mg/dL (70-99); POTASSIUM,K 4.1 mEq/L (3.5-5.1); SODIUM,NA 140.0 mEq/L (136-145)
[2025-05-01 14:06] VITALS: BP 159/55; PULSE 57
== END 2025-05-01 14:02 | disposition home or self-care (01) | DRG 392 ==
LOC: JD.ED 08:57 → JD.MS 09:03 → UNDOADMOB 18:39 → JD.MS 18:39 → INTOOBSV 18:39 → OBSVTOIN 18:39 → INTOOBSV 04-30 09:01 → OBSVTOIN 04-30 09:03 → UNDODISIN 05-01 14:02
PROVIDERS: ADMIT Family Medicine; ATTEND Family Medicine
DX: R51.9 Headache, unspecified (principal); E11.65 Type 2 diabetes mellitus with hyperglycemia; R07.0 Pain in throat; E83.52 Hypercalcemia; K21.9 Gastro-esophageal reflux disease without esophagitis; R09.A2 Foreign body sensation, throat; R09.89 Other specified symptoms and signs involving the circulatory and respiratory systems; Z66 Do not resuscitate; T78.40XA Allergy, unspecified, initial encounter; Z91.048 Other nonmedicinal substance allergy status; I48.0 Paroxysmal atrial fibrillation; I50.9 Heart failure, unspecified; Z79.890 Hormone replacement therapy; D64.9 Anemia, unspecified; H54.7 Unspecified visual loss; I11.0 Hypertensive heart disease with heart failure; E78.00 Pure hypercholesterolemia, unspecified; J44.9 Chronic obstructive pulmonary disease, unspecified; M19.90 Unspecified osteoarthritis, unspecified site; E11.42 Type 2 diabetes mellitus with diabetic polyneuropathy; F32.A Depression, unspecified; E66.9 Obesity, unspecified; Z68.32 Body mass index [BMI] 32.0-32.9, adult; Z86.16 Personal history of COVID-19; Z90.49 Acquired absence of other specified parts of digestive tract; Z91.040 Latex allergy status; Z88.8 Allergy status to other drugs, medicaments and biological substances; Z79.4 Long term (current) use of insulin; Z79.899 Other long term (current) drug therapy; Z79.01 Long term (current) use of anticoagulants; Z98.49 Cataract extraction status, unspecified eye; Z98.891 History of uterine scar from previous surgery; Z98.51 Tubal ligation status; Z87.891 Personal history of nicotine dependence
CPT/HCPCS: 36415; 70450; 70490; 80053; 85025; 94640 ×2; 96372 ×2; 96374; 96375; 99285; A9270 ×6; J0169 ×2; J1200; J3010; 71046; 71046-26; 80048; 82947; 83735; 86140; 94761; 99222; 99232; 99239; 99284; G0378; J1815-GY; J2470; J2919